=== PATIENT | female | born 1945 | race Caucasian/White ===

== ENCOUNTER 2016-11-26 16:18 | Inpatient (IN) | payer MEDICARE, OTHER ==
[2016-11-26] VITALS (10 sets, daily range): BP systolic 106–131; BP diastolic 52–63; PULSE 63–146; RESP 12–22; TEMP 86.9–95.5; O2SAT 95–100
[~2016-11-26] VITALS: Ht 154.9 cm; Wt 64.7 kg
[~2016-11-26 16:18] MED LIST: ASPI81TA21 PO; CALC600T34 PO; CENTTAB9 PO; LEVO100T4 PO; LIPI80TA16 PO; PRAMIPREXOLE PO; PRIM250 PO
[2016-11-26] MEDS ORDERED: SODIUM CHLOR 0.9% 1000 ML INJ 1,000 ML IV ONE ×4 (16:45→18:45)
--- NOTE | 2016-11-26 16:52 | PD ---
HPI Chief Complaint: Altered Mental Status Time Seen by Provider: 16:25 Travel History International Travel<30 days: No Contact w/Intl Traveler<30days: No Traveled to known affect area: No History of Present Illness HPI The patient was seen and examined in the presence of the nurse. It's not clear what happened to this patient. Neighbor hadn't seen her for a while and became concerned. Paramedics found her lying on the ground. It's unknown how long she 's been down. She cannot provide any history or review of systems. She arrives critically ill [facility] Past Medical History Arthritis: Yes Blood Disorders: No Heart Rhythm Problems: Yes (POSS A FIB) Cancer: Yes (BREAST 2010) High Cholesterol: Yes Chest Pain: No Congestive Heart Failure: No Diminished Hearing: No GERD: No Glaucoma: No Headaches: Yes Hepatitis: No Hiatal Hernia: No Hypertension: No Myocardial Infarction: No Seizures: Yes Thyroid Disease: Yes Ulcer: No Menopausal: Yes Past Surgical History Abdominal Surgery: Yes (GALLBLADDER AND TRIPLE BYPASS) Ear Surgery: No Oral Surgery: No Other Surgery: Yes Social History Alcohol Use: No Tobacco Use: No Substance Use: No Allergies-Medications (Allergen,Severity, Reaction): Coded Allergies: Codeine (Verified Allergy, Severe, 09/04/16) Demerol (Verified Allergy, Severe, 09/04/16) Iodine (Verified Allergy, Severe, hives, 09/04/16) Vitamin C (Verified Allergy, Severe, Rash, 09/04/16) RASH RASH Reported Meds & Prescriptions Reported Meds & Active Scripts Active Reported Centrum (Multivitamins) Tab 1 Tab PO DAILY [Pramiprexole] 1.5 Mg PO HS Aspir-Low (Aspirin) 81 Mg Tab 81 Mg PO DAILY Lipitor (Atorvastatin Calcium) 80 Mg Tab 80 Mg PO DAILY Calcium 600 Mg Tab 600 Mg PO DAILY Mysoline (Primidone) 250 Mg Tab 375 Mg PO BID Levothyroxine 100 mcg (Levothyroxine Sodium) 100 Mcg Tab 100 Mcg PO DAILY Review of Systems ROS Limitations: Clinical Condition, Altered Mental Status, Poor Historian Physical Exam Narrative GENERAL: Thin elderly appearing patient with hypothermia and altered mental status SKIN: Cool and dry. Apparent stage II decubital sacral region HEAD: Has an oval-shaped stage II decubital on the left posterior scalp. Normocephalic. EYES: Pupils are unequal and round . No scleral icterus. No injection or drainage. ENT: No nasal bleeding or discharge. Mucous membranes pink but dry. Normal gag reflex. Appears to be controlling her airway. NECK: Trachea midline. No JVD. CARDIOVASCULAR: Regular rate and rhythm. No murmur appreciated. RESPIRATORY: No accessory muscle use. Clear to auscultation. Breath sounds equal bilaterally. GASTROINTESTINAL: Abdomen soft, non-tender, nondistended. Hepatic and splenic margins not palpable. MUSCULOSKELETAL: No obvious deformities. No clubbing. No cyanosis. No edema. NEUROLOGICAL: Awake and does follow commands. Has equal network manager strengths. Wiggles toes on both feet. Will open her eyes to voice. Has generalized weakness. Nonverbal. PSYCHIATRIC: Impossible to accurately test mood and affect; insight and judgment poor. Data Data Last Documented VS Vital Signs Date Time Temp Pulse Resp B/P Pulse Ox O2 Delivery O2 Flow Rate FiO2 11/26/16 18:09 87.4 121 12 122/60 98 Nasal Cannula 2.0 Orders Iv Access Insert/Monitor (11/26/16 16:35) Iv Access Insert/Monitor (11/26/16 16:35) Sodium Chlor 0.9% 1000 Ml Inj (Ns 1000 M (11/26/16 16:45) Sodium Chlor 0.9% 1000 Ml Inj (Ns 1000 M (11/26/16 16:45) Ct Brain W/O Iv Contrast(Rout) (11/26/16 ) Ct Cerv Spine W/O Contrast (11/26/16 ) Chest, Single Ap (11/26/16 ) Pelvis, Ap Only (Routine) (11/26/16 ) Urinalysis - C+S If Indicated (11/26/16 16:35) Urinary Catheter Insert/Apply (11/26/16 16:35) Complete Blood Count With Diff (11/26/16 16:35) Comprehensive Metabolic Panel (11/26/16 16:35) Ckmb (Isoenzyme) Profile (11/26/16 16:35) Electrocardiogram (11/26/16 ) ^ Director Of Admissions / Telemetry (11/26/16 16:35) Warming [place] / Warming Syst PRN (11/26/16 16:39) Lactic Acid (11/26/16 16:52) Arterial Blood Gas (Abg) (11/26/16 ) Prothrombin Time / Inr (Pt) (11/26/16 16:52) Act Partial Throm Time (Ptt) (11/26/16 16:52) Sodium Bicarbonate 8.4% Inj (Sodium Bica (11/26/16 17:30) CKMB (11/26/16 16:45) CKMB% (11/26/16 16:45) Urine Culture (11/26/16 17:50) Admit Order (Ed Use Only) (11/26/16 18:22) Labs Laboratory Tests Test 11/26/16 11/26/16 11/26/16 16:45 17:03 17:50 White Blood Count 11.2 TH/MM3 Red Blood Count 4.97 MIL/MM3 Hemoglobin 13.9 GM/DL Hematocrit 43.8 % Mean Corpuscular Volume 88.2 FL Mean Corpuscular Hemoglobin 28.0 PG Mean Corpuscular Hemoglobin 31.7 % Concent Red Cell Distribution Width 19.8 % Platelet Count 235 TH/MM3 Mean Platelet Volume 10.2 FL Neutrophils (%) (Auto) 92.3 % Lymphocytes (%) (Auto) 1.7 % Monocytes (%) (Auto) 5.8 % Eosinophils (%) (Auto) 0.0 % Basophils (%) (Auto) 0.2 % Neutrophils # (Auto) 10.4 TH/MM3 Lymphocytes # (Auto) 0.2 TH/MM3 Monocytes # (Auto) 0.6 TH/MM3 Eosinophils # (Auto) 0.0 TH/MM3 Basophils # (Auto) 0.0 TH/MM3 CBC Comment DIFF FINAL Differential Comment Prothrombin Time 11.0 SEC Prothromb Time International 1.0 RATIO Ratio Activated Partial 33.6 SEC Thromboplast Time Sodium Level 142 MEQ/L Potassium Level 4.9 MEQ/L Chloride Level 107 MEQ/L Carbon Dioxide Level 8.3 MEQ/L Anion Gap 27 MEQ/L Blood Urea Nitrogen 157 MG/DL Creatinine 8.80 MG/DL Estimat Glomerular Filtration 4 ML/MIN Rate Random Glucose 149 MG/DL Lactic Acid Level 0.9 mmol/L Calcium Level 7.5 MG/DL Total Bilirubin 0.2 MG/DL Aspartate Amino Transf 158 U/L (AST/SGOT) Alanine Aminotransferase 63 U/L (ALT/SGPT) Alkaline Phosphatase 129 U/L Total Creatine Kinase 4490 U/L Creatine Kinase MB 139.8 NG/ML Creatine Kinase MB % 3.1 % Total Protein 7.5 GM/DL Albumin 3.0 GM/DL Blood Gas Puncture Site RT RADIAL Blood Gas Patient Temperature 98.6 Blood Gas HCO3 6 mmol/L Blood Gas Base Excess -23.6 mmol/L Blood Gas Oxygen Saturation 94 % Arterial Blood pH 6.99 Arterial Blood Partial 24 mmHg Pressure CO2 Arterial Blood Partial 140 mmHG Pressure O2 Arterial Blood Oxygen Content 19.0 Vol % Arterial Blood 1.5 % Carboxyhemoglobin Arterial Blood Methemoglobin 2.4 % Blood Gas Hemoglobin 14.1 G/DL Oxygen Delivery Device RA Blood Gas Inspired Oxygen 21 % Urine Color YELLOW Urine Turbidity CLOUDY Urine pH 5.0 Urine Specific [place] 1.017 Urine Protein 30 mg/dL Urine Glucose (UA) NEG mg/dL Urine Ketones NEG mg/dL Urine Occult Blood TRACE Urine Nitrite NEG Urine Bilirubin NEG Urine Urobilinogen LESS THAN 2.0 MG/DL Urine Leukocyte Esterase NEG Urine Amorphous Sediment MANY Urine Bacteria FEW /hpf Urine Yeast (Budding) Microscopic Urinalysis Comment CATH-CULTURE IND MDM Medical Decision Making Medical Screen Exam Complete: Yes Emergency Medical Condition: Yes Medical Record Reviewed: Yes Differential Diagnosis Hypothermia, rhabdomyolysis, dehydration, intracranial hemorrhage Narrative Course I have reviewed the patient's electronic medical record. 2 IVs placed Patient is critically ill We've done rewarming with 2 L of warmed saline IV blankets applied and bear Good Dealer warming system I reviewed her chest x-ray is negative for trauma I reviewed her pelvic x-ray is negative Brain CT is negative Cervical spine CT shows arthritic change without fracture CBC is normal Metabolic profile shows new-onset renal failure with creatinine of 8.8. BUN is very high. Sodium and potassium are both normal. Bicarbonate is low at 8.3 LFTs I reviewed ABG shows pH of 6.99, metabolic acidosis Lactate is normal I reviewed the case in detail with aerophysics engineer radiation protection technician Dr. Kirby. He is not recommending emergent dialysis. He wants aggressive hydration and supportive intensive care measures and he will reassess and determine dialysis need Temperature starting to come up Temperature-sensing Barrios has been placed I'm giving 2 more liters of warmed normal saline IV which will be a total of 4 L Blood pressure is remaining 122 systolic Patient sometimes is in a sinus rhythm in the 70s and at other times in A. fib with a max rate of 120s I reviewed with the drier belt conveyor Critical Care Narrative Aggregate critical care time was 82 minutes. Time to perform other separately billable procedures was not included in the critical care time. My time did not include minutes spent treating any other patients simultaneously or on activities that did not directly contribute to the patient's treatment. The services I provided to this patient were to treat and/or prevent clinically significant deterioration that could result in: Cardiac arrhythmia, cardiopulmonary arrest I provided critical care services requiring my management, as noted below: Chart data review, documentation time, medication orders and management, vital sign assessments/reviewing monitor data, ordering and reviewing lab tests, ordering and interpreting/reviewing x-rays and diagnostic studies, care of the patient and discussion of the patient with the admitting physicians. Diagnosis Primary Impression: Renal failure Additional Impressions: Hypothermia Qualified Code: T68.XXXA - Hypothermia, initial encounter Dehydration, severe Rhabdomyolysis Qualified Code: T79.6XXA - Traumatic rhabdomyolysis, initial encounter Uremic encephalopathy Admitting Information Admitting Physician Requests: Admit Arsenio Smith MD Nov 26, 2016 16:52
[2016-11-26 17:13] LABS: BLOOD GAS BASE EXCESS -23.6 mmol/L (-2-2); BLOOD GAS CARBOXYHEMOGLOBIN 1.5 % (0-4); BLOOD GAS HCO3 6 mmol/L (22-26); BLOOD GAS METHEMOGLOBIN 2.4 % (0-2); BLOOD GAS O2 HGB SATURATION 94 % (90-100); BLOOD GAS PCO2 24 mmHg (38-42); BLOOD GAS PO2 140 mmHG (61-120); BLOOD GAS TOTAL HGB 14.1 G/DL (12.0-16.0); CRITICAL VALUE YES; TEMP CORR TO 98.6
[2016-11-26 17:14] LABS: DRAW SITE RT RADIAL; FIO2 21 %; NUMBER OF ARTERIAL PUNCTURES 1; OXYGEN DEVICE RA; STAT YES; ULNAR PULSE PRESENT
[2016-11-26 17:25] LABS: AUTOMATED NEUTROPHIL # 10.4 TH/MM3 (1.8-7.7); BASOPHIL % 0.2 % (0.0-2.0); HEMATOCRIT 43.8 % (35.0-46.0); HEMO FLAGS DIFF FINAL; LYMPH % 1.7 % (9.0-44.0); LYMPHOCYTE # 0.2 TH/MM3 (1.0-4.8); MEAN CELL VOLUME 88.2 FL (80.0-100.0); MEAN CORPUSCULAR HGB CONC 31.7 % (32.0-36.0); MONO % 5.8 % (0.0-8.0); NEUT % 92.3 % (16.0-70.0); PLATELET COUNT 235 TH/MM3 (150-450); RED BLOOD COUNT 4.97 MIL/MM3 (4.00-5.30); RED CELL DISTRIBUTION WIDTH 19.8 % (11.6-17.2); WHITE BLOOD COUNT 11.2 TH/MM3 (4.0-11.0)
[2016-11-26 17:30] LABS: APTT (PATIENT) 33.6 SEC (24.3-30.1)
[2016-11-26] MEDS ORDERED: SODIUM BICARBONATE 8.4% INJ 50 MEQ/50 ML SYR IV PUSH ONE ×2 (17:30→22:00)
--- NOTE | 2016-11-26 17:32 | RADRPT ---
EXAM DATE/TIME: 11/26/2016 17:19 [facility] COMPARISON: No previous studies available for comparison. INDICATIONS : Trauma to chest post fall MEDICAL HISTORY : Unobtainable SURGICAL HISTORY : Unobtainable ENCOUNTER: Initial ACUITY: 1 day PAIN SCORE: Non-responsive. LOCATION: Bilateral chest FINDINGS: Lungs are symmetrically aerated and grossly clear. There is no definite evidence of hemothorax or pne umothorax. Cardiomediastinal contours are satisfactory for technique and projection. Sternotomy wires are present. There are healed right-sided rib fractures. Severe degenerative changes are present in the shoulder with calcific or ossific loose body in the axillary recess on the right. Surgical clips are seen in the low right axillary region. CONCLUSION: No acute cardiopulmonary disease Lei Dewitt MD on November 26, 2016 at 17:29 Board Certified Radiologist. This report was verified electronically.
--- NOTE | 2016-11-26 17:35 | RADRPT ---
EXAM DATE/TIME: 11/26/2016 17:18 [facility] COMPARISON: No previous studies available for comparison. INDICATIONS : Trauma to pelvis post fall today MEDICAL HISTORY : Unobtainable SURGICAL HISTORY : Unobtainable ENCOUNTER: Initial ACUITY: 1 day PAIN SCORE: Non-responsive. LOCATION: Pelvis FINDINGS: A single frontal view of the pelvis demonstrates no evidence of fracture. The bony pelvic ring is in tact. Bony mineralization is normal. The soft tissues are intact. CONCLUSION: 1. No acute findings. Mild osteoarthritis of the hips. Vascular calcifications in the pelvis. Domenico Mar MD on November 26, 2016 at 17:32 Board Certified Radiologist. This report was verified electronically.
--- NOTE | 2016-11-26 17:49 | RADRPT ---
EXAM DATE/TIME: 11/26/2016 17:22 [facility] COMPARISON: No previous studies available for comparison. INDICATIONS : AMS and possible head trauma. RADIATION DOSE: 56.35 CTDIvol (mGy) MEDICAL HISTORY : Seizures. Cardiovascular disease Carcinoma, breast. SURGICAL HISTORY : None. ENCOUNTER: Initial ACUITY: 1 day PAIN SCALE: Non-responsive LOCATION: cranial TECHNIQUE: Multiple contiguous axial images were obtained of the head. Using automated exposure control and adj ustment of the mA and/or kV according to patient size, radiation dose was kept as low as reasonably a chievable to obtain optimal diagnostic quality images. FINDINGS: CEREBRUM: The ventricles are normal for age. No evidence of midline shift, mass lesion, hemorrhage or acute in farction. No extra-axial fluid collections are seen. POSTERIOR FOSSA: The cerebellum and brainstem are intact. The 4th ventricle is midline. The cerebellopontine angle i s unremarkable. EXTRACRANIAL: The visualized portion of the orbits is intact. SKULL: The calvaria is intact. No evidence of skull fracture. CONCLUSION: No acute intracranial findings. Lei Dewitt MD on November 26, 2016 at 17:46 Board Certified Radiologist. This report was verified electronically.
[2016-11-26 17:58] LABS: ANION GAP 27 MEQ/L (5-15)
--- NOTE | 2016-11-26 18:07 | RADRPT ---
EXAM DATE/TIME: 11/26/2016 17:25 [facility] COMPARISON: No previous studies available for comparison. INDICATIONS : Altered mental status; found unresponsive. RADIATION DOSE: 32.15 CTDIvol (mGy) MEDICAL HISTORY : Seizures. Cardiovascular disease Carcinoma, breast. SURGICAL HISTORY : None. ENCOUNTER: Initial ACUITY: 1 day PAIN SCALE: Non-responsive LOCATION: neck TECHNIQUE: Volumetric scanning of the cervical spine was performed. Multiplanar reconstructions in the sagittal, coronal and oblique axial planes were performed. Using automated exposure control and adjustment o f the mA and/or kV according to patient size, radiation dose was kept as low as reasonably achievable to obtain optimal diagnostic quality images. FINDINGS: There is mild to moderate degenerative disc disease in the cervical spine. Benign-appearing sclerotic lesion present at C7. No acute fracture or spondylolisthesis. No prevertebral soft tissue swelling i s present. CONCLUSION: 1. Moderate degenerative disc disease. No acute findings. Domenico Mar MD on November 26, 2016 at 18:01 Board Certified Radiologist. This report was verified electronically.
[2016-11-26 18:10] LABS: ALT (GPT) 63 U/L (10-53); AST (GOT) 158 U/L (15-37); BICARBONATE 8.3 MEQ/L (21.0-32.0); CHLORIDE 107 MEQ/L (98-107); GLOMERULAR FILTRATION RATE 4 ML/MIN (>89); POTASSIUM 4.9 MEQ/L (3.5-5.1); SODIUM (NA) 142 MEQ/L (136-145)
[2016-11-26 18:11] LABS: ALKALINE PHOSPHATASE 129 U/L (45-117); CREATINE KINASE 4490 U/L (26-192); TOTAL BILIRUBIN ADULT 0.2 MG/DL (0.2-1.0)
[2016-11-26 18:19] LABS: BACTERIA, URINE FEW /hpf; BLOOD, URINE TRACE (NEG); GLUCOSE,URINE NEG (NEG); KETONE, URINE NEG (NEG); NITRITE,URINE NEG (NEG); URINE COLOR YELLOW (YELLW/STRAW)
[2016-11-26 18:20] LABS: COMMENT (UR) CATH-CULTURE IND; CULTURE IF INDICATED CATH CULTURE IND
[2016-11-26 18:34] LABS: BLOOD UREA NITROGEN 157 MG/DL (7-18)
[2016-11-26 18:36] LABS: CKMB 139.8 NG/ML (0.5-3.6)
[2016-11-26] MEDS ORDERED: SODIUM CHLORIDE 0.9% FLUSH 5 ML FLUSH IV FLUSH PRN (19:15)
[2016-11-26] MEDS ORDERED: CHLORHEXIDINE GLUCONATE 2 % 1 PACK (2 CLOTHS) TOP PRN (19:15)
[2016-11-26] MEDS ORDERED: POTASSIUM PHOSPHATE MONOBASIC 500 MG TAB PO PRN (19:15)
[2016-11-26] MEDS ORDERED: SODIUM PHOSPHATE INJ 30 MMOL in SODIUM CHLOR 0.9% 250 ML INJ 240 ML IV PRN (19:15)
[2016-11-26] MEDS ORDERED: MISCELLANEOUS NURSING INFORMATION XX SCH (19:15)
[2016-11-26] MEDS ORDERED: POTASSIUM CL 40 MEQ/30 ML LIQ UDC PO/TUBE PRN ×2 (19:15)
[2016-11-26] MEDS ORDERED: ONDANSETRON HCL 4 MG/2 ML VIAL IV PRN (19:15)
[2016-11-26] MEDS ORDERED: POTASSIUM CHLOR 40 MEQ PREMIX 100 ML IV PRN ×2 (19:15)
[2016-11-26] MEDS ORDERED: BISACODYL 10 MG SUPP RECTAL PRN (19:15)
[2016-11-26] MEDS ORDERED: MAGNESIUM SULFATE INJ 4 GM in SODIUM CHLORIDE 0.9% INJ 92 ML IV PRN (19:15)
[2016-11-26] MEDS ORDERED: MAGNESIUM SULFATE INJ 2 GM in SODIUM CHLORIDE 0.9% INJ 96 ML IV PRN (19:15)
[2016-11-26] MEDS ORDERED: MAGNESIUM OXIDE 400 MG TAB PO PRN (19:15)
[2016-11-26] MEDS ORDERED: POTASSIUM PHOSPHATE MONOBASIC 500 MG TAB PO/TUBE PRN (19:15)
[2016-11-26] MEDS ORDERED: POTASSIUM CHLOR 20 MEQ PREMIX 100 ML IV PRN ×2 (19:15)
[2016-11-26] MEDS ORDERED: POTASSIUM PHOSPHATE INJ 30 MMOL in SODIUM CHLOR 0.9% 250 ML INJ 250 ML IV PRN (19:15)
[2016-11-26] MEDS ORDERED: LACTATED RINGER'S 1000 ML INJ 1,000 ML IV SCH (19:45)
--- NOTE | 2016-11-26 19:59 | HHI.HP ---
HPI Service Critical Care Medicine Primary Care Physician Unknown Admission Diagnosis new onset renal failure,uremic encephalopathy,hypothermia Diagnosis: Travel History International Travel<30 Days: No Contact w/Intl Traveler <30 Da: No Traveled to Known Affected Are: No History of Present Illness Is elderly female found down in her backyard her next door neighbor. It is unknown the amount of time the patient had been lying on the ground. Patient was noted to have an ulcer in the occipital region and the sacral region. The patient was noted to be hypothermic 86.0, with altered mental status. The patient was transferred to [facility] ED at which time imaging studies and laboratory studies were performed. The patient was noted to have a pH of 6.99, with a bicarbonate level of 6, and rhabdomyolysis with a CK level will 4490. Patient received approximately 4 L of IV fluids, 2 A of sodium bicarbonate, nephrology was consulted, and rewarming was instituted. Critical care medicine was consulted for management and treatment. Upon my arrival to the ED, the patient was alert to name, and stated her name, slightly dysarthric, normotensive, and following motor commands. History PFSH Past Medical History Arthritis: Yes Blood Disorders: No Heart Rhythm Problems: Yes (POSS A FIB) Cancer: Yes (BREAST 2009) High Cholesterol: Yes Chest Pain: No Congestive Heart Failure: No Diminished Hearing: No GERD: No Glaucoma: No Headaches: Yes Hepatitis: No Hiatal Hernia: No Hypertension: No Myocardial Infarction: No Seizures: Yes Thyroid Disease: Yes Ulcer: No Menopausal: Yes Past Surgical History Abdominal Surgery: Yes (GALLBLADDER AND TRIPLE BYPASS) Ear Surgery: No Oral Surgery: No Other Surgery: Yes Social History Alcohol Use: No Tobacco Use: No Substance Use: No Allergies-Medications Allergies-Medications (Allergen,Severity, Reaction): Coded Allergies: Codeine (Verified Allergy, Severe, 09/04/16) Demerol (Verified Allergy, Severe, 09/04/16) Iodine (Verified Allergy, Severe, hives, 09/04/16) Vitamin C (Verified Allergy, Severe, Rash, 09/04/16) RASH RASH Reported Meds & Prescriptions Reported Meds & Active Scripts Active Reported Centrum (Multivitamins) Tab 1 Tab PO DAILY [Pramiprexole] 1.5 Mg PO HS Aspir-Low (Aspirin) 81 Mg Tab 81 Mg PO DAILY Lipitor (Atorvastatin Calcium) 80 Mg Tab 80 Mg PO DAILY Calcium 600 Mg Tab 600 Mg PO DAILY Mysoline (Primidone) 250 Mg Tab 375 Mg PO BID Levothyroxine 100 mcg (Levothyroxine Sodium) 100 Mcg Tab 100 Mcg PO DAILY ROS Review of Systems ROS Limitations: Clinical Condition, Altered Mental Status, Poor Historian Past Family Social History Allergies: Coded Allergies: Codeine (Verified Allergy, Severe, 09/04/16) Demerol (Verified Allergy, Severe, 09/04/16) Iodine (Verified Allergy, Severe, hives, 09/04/16) Vitamin C (Verified Allergy, Severe, Rash, 09/04/16) RASH RASH Physical Exam Vital Signs Vital Signs Date Time Temp Pulse Resp B/P Pulse Ox O2 Delivery O2 Flow Rate FiO2 11/26/16 19:22 100 Nasal Cannula 2 11/26/16 19:21 89.4 132 18 106/58 100 Nasal Cannula 2 11/26/16 19:05 88.9 134 12 106/58 100 Nasal Cannula 2.0 11/26/16 18:09 87.4 121 12 122/60 98 Nasal Cannula 2.0 11/26/16 18:04 87.4 11/26/16 16:41 12 Room Air 11/26/16 16:41 63 12 131/58 95 Nasal Cannula 2.0 11/26/16 16:25 86.9 65 12 129/63 Physical Exam GENERAL: Critically ill-appearing female appearing older than stated age. SKIN: Cool and dry. Noted ulcer occipital and sacral area HEAD: Normocephalic. EYES: PERRLA, 3mm beisk. No scleral icterus. No injection or drainage. ENT: No nasal bleeding or discharge. Mucous membranes dry. Nasal cannula at 2 L /m NECK: Trachea midline. No JVD. CARDIOVASCULAR: Tachycardic, regular rhythm. RESPIRATORY: No accessory muscle use. Clear to auscultation. Breath sounds equal bilaterally. GASTROINTESTINAL: Abdomen soft, non-tender, nondistended. No guarding. MUSCULOSKELETAL: Extremities without clubbing, cyanosis, or edema. No obvious deformities. Pain with extension left lower extremity NEUROLOGICAL: Awake and alert. RASS 0. No gross focal/sensory deficits.Dysarthia noted. Follows commands in all 4 extremities. Laboratory Laboratory Tests Test 11/26/16 11/26/16 11/26/16 16:45 17:03 17:50 White Blood Count 11.2 Red Blood Count 4.97 Hemoglobin 13.9 Hematocrit 43.8 Mean Corpuscular Volume 88.2 Mean Corpuscular Hemoglobin 28.0 Mean Corpuscular Hemoglobin 31.7 Concent Red Cell Distribution Width 19.8 Platelet Count 235 Mean Platelet Volume 10.2 Neutrophils (%) (Auto) 92.3 Lymphocytes (%) (Auto) 1.7 Monocytes (%) (Auto) 5.8 Eosinophils (%) (Auto) 0.0 Basophils (%) (Auto) 0.2 Neutrophils # (Auto) 10.4 Lymphocytes # (Auto) 0.2 Monocytes # (Auto) 0.6 Eosinophils # (Auto) 0.0 Basophils # (Auto) 0.0 CBC Comment DIFF FINAL Differential Comment Prothrombin Time 11.0 Prothromb Time International 1.0 Ratio Activated Partial 33.6 Thromboplast Time Sodium Level 142 Potassium Level 4.9 Chloride Level 107 Carbon Dioxide Level 8.3 Anion Gap 27 Blood Urea Nitrogen 157 Creatinine 8.80 Estimat Glomerular Filtration 4 Rate Random Glucose 149 Lactic Acid Level 0.9 Calcium Level 7.5 Total Bilirubin 0.2 Aspartate Amino Transf 158 (AST/SGOT) Alanine Aminotransferase 63 (ALT/SGPT) Alkaline Phosphatase 129 Total Creatine Kinase 4490 Creatine Kinase MB 139.8 Creatine Kinase MB % 3.1 Total Protein 7.5 Albumin 3.0 Blood Gas Puncture Site RT RADIAL Blood Gas Patient Temperature 98.6 Blood Gas HCO3 6 Blood Gas Base Excess -23.6 Blood Gas Oxygen Saturation 94 Arterial Blood pH 6.99 Arterial Blood Partial 24 Pressure CO2 Arterial Blood Partial 140 Pressure O2 Arterial Blood Oxygen Content 19.0 Arterial Blood 1.5 Carboxyhemoglobin Arterial Blood Methemoglobin 2.4 Blood Gas Hemoglobin 14.1 Oxygen Delivery Device RA Blood Gas Inspired Oxygen 21 Urine Color YELLOW Urine Turbidity CLOUDY Urine pH 5.0 Urine Specific [place] 1.017 Urine Protein 30 Urine Glucose (UA) NEG Urine Ketones NEG Urine Occult Blood TRACE Urine Nitrite NEG Urine Bilirubin NEG Urine Urobilinogen LESS THAN 2.0 Urine Leukocyte Esterase NEG Urine Amorphous Sediment MANY Urine Bacteria FEW Urine Yeast (Budding) Microscopic Urinalysis Comment CATH-CULTURE IND Date/Time Procedure Status Source Growth 11/26/16 17:50 Urine Culture Received Urine Clean Catch Pending Result Diagram: 11/26/16 1645 11/26/16 1645 Imaging Last 24 hours Impressions Pelvis X-Ray 11/26/16 0000 Signed Impressions: Service Date/Time: Saturday, November 26, 2016 17:18 - CONCLUSION: 1. No acute findings. Mild osteoarthritis of the hips. Vascular calcifications in the pelvis. Domenico Mar MD Head CT 11/26/16 0000 Signed Impressions: Service Date/Time: Saturday, November 26, 2016 17:22 - CONCLUSION: No acute intracranial findings. Lei Dewitt MD Chest X-Ray 11/26/16 0000 Signed Impressions: Service Date/Time: Saturday, November 26, 2016 17:19 - CONCLUSION: No acute cardiopulmonary disease Lei Dewitt MD Cervical Spine CT 11/26/16 0000 Signed Impressions: Service Date/Time: Saturday, November 26, 2016 17:25 - CONCLUSION: 1. Moderate degenerative disc disease. No acute findings. Domenico Mar MD Septic Shock Reassessment Heart: Irregular Lungs: Clear Skin: Cold Peripheral Pulses: Bounding Right Radial Bounding Left Radial Bounding Right Dorsalis Pedis Bounding Left Dorsalis Pedis Capillary Refill: Brisk, <2 seconds Assessment and Plan Assessment and Plan This is a critically ill female, found unconscious from unknown limited of time , presenting with rhabdomyolysis, hypothermia, altered mental status, with a severe metabolic acidosis. The patient's medical records revealed the patient has a history of seizures, and cardiovascular disease. This is included in the differential, and the patient remains critically ill, and prognosis is guarded. Plan by systems: Neurologic: Seizure disorder Altered mental status-secondary to hypothermia, toxic encephalopathy -GCS 14, patient is alert to name, dysarthria -Obtain EEG -Follow up ammonia level -Neurology consult appreciate recommendations -CT head 11/26-no intracranial abnormality -CT cervical 11/26 moderate degenerative disc disease -Maintain c-collar, place Lime J until clinical assessment -Normal swallow evaluation by speech therapy in a.m. Respiratory: -No acute issues respiratory issues -Maintain O2 sat greater than 92%. O2 at 2 L nasal cannula O2 saturation 99% -Bronchodilators every 4 hours when necessary for wheezing -Maintain head of bed elevation 30 patient is an aspiration risk -CXR1/6- no abnormalities -Follow-up repeat ABG Cardiovascular: Cardiovascular disease History of CABG x 3 vessels Hyperlipidemia H/O A. fib (per old records) Sinus tachycardia -HR 120's-continue to volume resuscitate -Obtain EKG -Obtain serial troponin -Obtain BNP -Obtain ECHO -Past medical records revealed patients on ASA 81 mg daily, will resume when clinically indicated Renal: ALEXEY Dehydration -Initial creatinine 8.8-volume resuscitation, 4 L of crystalloid NS, 1L LR, sodium bicarbonate infusion 100 cc/hr, LR 100cc/hr maintenance -Insert Barrios -- Strict I/Os FEN/GI: Metabolic acidosis Elevated transaminases -Initial ABG 6.99/24/140/6/-23.6, received 2 amps of sodium bicarbonate and the ED -Repeat ABG 7.111/20.8/127/6.5/-21, 2 amps of sodium bicarbonate given, sodium bicarbonate infusion initiated -Maintain NPO status -Insert NG tube -Sodium bicarbonate infusion 100 cc/hour, LR 100 cc/hour Heme/ID: -Obtain blood and urine cultures -Lactate 0.2 Endocrine: Hypothyroidism -Obtain thyroid panel -Patient home med includes Synthroid 100 mcgs/day SKIN/MUSUCULOSKELETAL: Hypothermia Rhabdomyolysis -Apply Jennifer hugger -Warm IV fluids -Monitor core temp via Barrios -Glucose monitoring per ICU protocol -- SSI Prophylaxis: GI Prophylaxis Protonix DVT Prophylaxis -- SCDs Lines: Peripheral IVs 2. Central line if indicated. Dispo: This patient remains critically ill with one or more organ systems which are or may become a threat to life. I have spent in excess of 60 minutes discontinuously in the care and management of this patient. This time is exclusive of procedures, and includes, but is not limited to, evaluation of the patient, review of the medical record, discussions with family, consultants, nursing staff, or respiratory therapy, and documentation in the medical record. Code Status Full code Discussed Condition With ED RN at bedside Marychuy Payan MD Nov 26, 2016 19:58
[2016-11-26] MEDS ORDERED: LACTATED RINGER'S 1000 ML INJ 1,000 ML IV ONE (20:00)
[2016-11-26] MEDS: DOCUSATE SODIUM 100 MG/10 ML UDC G-TUBE SCH ×2 (20:00→21:06)
[2016-11-26 21:15] LABS: BLOOD GAS BASE EXCESS -21.2 mmol/L (-2-2); BLOOD GAS CARBOXYHEMOGLOBIN 1.6 % (0-4); BLOOD GAS HCO3 7 mmol/L (22-26); BLOOD GAS METHEMOGLOBIN 2.2 % (0-2); BLOOD GAS O2 HGB SATURATION 95 % (90-100); BLOOD GAS PCO2 21 mmHg (38-42); BLOOD GAS PO2 127 mmHG (61-120); BLOOD GAS TOTAL HGB 11.1 G/DL (12.0-16.0); TEMP CORR TO 98.6
[2016-11-26 21:16] LABS: DRAW SITE LT RADIAL; LITER FLOW 2 L/M; NUMBER OF ARTERIAL PUNCTURES 1; OXYGEN DEVICE NASAL CANNULA; STAT YES; ULNAR PULSE PRESENT
--- NOTE | 2016-11-26 21:44 | EKG ---
Date Performed: 11/26/2016 Time Performed: 17:42:28 PTAGE: 71 years EKG: Sinus rhythm Peak T waves PROLONGED QT INTERVAL ABNORMAL ECG PREVIOUS TRACING : 01/16/2010 08.33 QTC Prolonged with peaked T waves DOCTOR: Ghanshyam Zamora Interpretating Date/Time 11/26/2016 21:42:49
[2016-11-26] MEDS: SODIUM BICARBONATE 8.4% INJ 150 MEQ in WATER STERILE FOR INJ 850 ML IV SCH (22:07)
[2016-11-26] MEDS: SODIUM CHLORIDE 0.9% FLUSH 5 ML FLUSH IV FLUSH SCH (22:08)
[2016-11-26 22:23] LABS: THYROXINE (T4) 3.1 MCG/DL (4.8-13.9)
[2016-11-26 22:36] LABS: CKMB 153.9 NG/ML (0.5-3.6)
[2016-11-27] VITALS (22 sets, daily range): BP systolic 100–135; BP diastolic 50–84; PULSE 126–156; RESP 16–28; TEMP 98.1–100.1; O2SAT 90–98
[2016-11-27] MEDS ORDERED: DILTIAZEM HCL 25 MG/5 ML VIAL IV ONE (00:30)
[2016-11-27] MEDS ORDERED: METOPROLOL TARTRATE 5 MG/5 ML VIAL IV PUSH ONE ×2 (02:45→04:15)
[2016-11-27 03:21] LABS: CKMB 154.9 NG/ML (0.5-3.6)
[2016-11-27] MEDS: RESP: ALBUTEROL 2.5 MG/IPRATROPIUM 0.5 MG NEB (PRN) INH (03:34)
[2016-11-27] MEDS: CHLORHEXIDINE GLUCONATE 2 % 1 PACK (2 CLOTHS) TOP SCH (04:00)
[2016-11-27 04:29] LABS: AUTOMATED NEUTROPHIL # 4.9 TH/MM3 (1.8-7.7); BASOPHIL % 0.8 % (0.0-2.0); HEMO FLAGS DIFF FINAL; LYMPH % 1.6 % (9.0-44.0); LYMPHOCYTE # 0.1 TH/MM3 (1.0-4.8); MEAN CELL VOLUME 86.9 FL (80.0-100.0); MEAN CORPUSCULAR HEMOGLOBIN 28.4 PG (27.0-34.0); MEAN CORPUSCULAR HGB CONC 32.7 % (32.0-36.0); MONO % 7.6 % (0.0-8.0); PLATELET COUNT 178 TH/MM3 (150-450); RED BLOOD COUNT 4.02 MIL/MM3 (4.00-5.30); RED CELL DISTRIBUTION WIDTH 20.5 % (11.6-17.2); WHITE BLOOD COUNT 5.5 TH/MM3 (4.0-11.0)
[2016-11-27 04:48] LABS: APTT (PATIENT) 28.5 SEC (24.3-30.1)
[2016-11-27 05:09] LABS: INDIRECT BILIRUBIN 0.2 MG/DL (0.0-0.8); MAGNESIUM 2.2 MG/DL (1.5-2.5); POTASSIUM 3.1 MEQ/L (3.5-5.1); TOTAL BILIRUBIN ADULT 0.3 MG/DL (0.2-1.0)
[2016-11-27 05:14] LABS: CALCIUM-PROTEIN CORRECTED 6.9 MG/DL (8.5-10.1)
[2016-11-27 05:46] LABS: BLOOD GAS BASE EXCESS -14.5 mmol/L (-2-2); BLOOD GAS HCO3 11 mmol/L (22-26); BLOOD GAS METHEMOGLOBIN 2.2 % (0-2); BLOOD GAS O2 HGB SATURATION 92 % (90-100); BLOOD GAS OXYGEN CONTENT 14.8 Vol % (12.0-20.0); BLOOD GAS PCO2 24 mmHg (38-42); BLOOD GAS PO2 92 mmHG (61-120); BLOOD GAS TOTAL HGB 11.3 G/DL (12.0-16.0); TEMP CORR TO 98.6
[2016-11-27 05:47] LABS: DRAW SITE RT RADIAL; FIO2 50 %; LITER FLOW 6 L/M; NUMBER OF ARTERIAL PUNCTURES 1; OXYGEN DEVICE Venti Mask; STAT YES; ULNAR PULSE PRESENT
--- NOTE | 2016-11-27 07:09 | RADRPT ---
EXAM DATE/TIME: 11/27/2016 06:59 [facility] COMPARISON: CHEST SINGLE AP, November 26, 2016, 17:19. INDICATIONS : Shortness of breath. MEDICAL HISTORY : Unobtainable. SURGICAL HISTORY : CABG. ENCOUNTER: Subsequent ACUITY: 2 days PAIN SCORE: Non-responsive. LOCATION: Bilateral chest FINDINGS: Interval development of consolidation in the left lower lung with multiple air bronchograms. The lef t hemidiaphragm remains fairly well delineated. The right lung is clear. The heart is normal size. Evidence of prior median sternotomy and CABG. Stable oval ossification in the inferior right should er. CONCLUSION: Interval development of left lower lobe consolidation. Josesito Kumar MD on November 27, 2016 at 7:07 Board Certified Radiologist. This report was verified electronically.
[2016-11-27] MEDS: SODIUM BICARBONATE 8.4% INJ 150 MEQ in WATER STERILE FOR INJ 850 ML IV SCH ×3 (08:11→20:09)
[2016-11-27] MEDS ORDERED: PANTOPRAZOLE SODIUM 40 MG VIAL IV SCH (09:00)
--- NOTE | 2016-11-27 09:50 | RADRPT ---
EXAM DATE/TIME: 11/27/2016 07:54 [facility] COMPARISON: No previous studies available for comparison. EXTERNAL COMPARISON : [facility], CT ABDOMEN & PELVIS W/O CONTRAST, June 21, 2012 INDICATIONS : Increased BUN and creatinine. MEDICAL HISTORY : Hypercholesterolemia. Arthritis. Carcinoma, breast. Thyroid disease. Seizures. A-Fib. SURGICAL HISTORY : Cholecystectomy. CABG. ENCOUNTER: Initial ACUITY: 1 day PAIN SCORE: Nonresponsive. LOCATION: Bilateral flank MEASUREMENTS: RIGHT KIDNEY: 9.9 x 4.3 x 4.9 cm LEFT KIDNEY: 9.6 x 4.3 x 4.4 cm FINDINGS: RIGHT KIDNEY: Kidney is small and echogenic without hydronephrosis or stone. LEFT KIDNEY: There is no hydronephrosis. Kidney is small and echogenic. BLADDER: Bladder is distended in spite of Barrios. Trace ascites is noted. Small bilateral pleural effusions are evident. CONCLUSION: Small echogenic kidneys without hydronephrosis. Trace pleural effusions. Trace ascites. Richard Bernal MD FACR on November 27, 2016 at 9:48 Board Certified Radiologist. This report was verified electronically.
[2016-11-27] MEDS: DOCUSATE SODIUM 100 MG/10 ML UDC G-TUBE SCH ×2 (10:34→20:00)
[2016-11-27] MEDS: SODIUM CHLORIDE 0.9% FLUSH 5 ML FLUSH IV FLUSH SCH ×2 (10:34→20:42)
--- NOTE | 2016-11-27 11:42 | PD.CONS ---
HPI Service Nephrology Consult Requested By Dr. Payan Reason for Consult [facility] Primary Care Physician Unknown History of Present Illness The patient is a 71 yo [place] female who was brought in yesterday evening after being found down at her home for an unknown amount of time. As per records as the patient is very lethargic and not able to provide any information, her neighbor became concerned when they hadn't seen her for some time and called for a welfare check. EMS found her down with AMS and hypothermic. On arrival, her was found to be in renal failure and profoundly acidotic. She was given 4L of NS bolus as well as 2 amps of bicarb. She has been transferred to the ICU for closer monitoring. We were consulted for evaluation of potential need for dialysis. SCr on arrival 8.80 that has improved to 6.54 after IV fluids Na was 142 and is now 153 K+ was 4.9 now 3.1 CO2 was 8.3 now 12 (HCO3 per ABG 6 on admission and improved to 11 at consult) We have only 2 other SCr levels for review from previous admissions: 1.30 in 2009 and 0.73 in 2006 (Agatha Cavazos) Review of Systems ROS Limitations: Clinical Condition, Altered Mental Status (Agatha Cavazos) Past Family Social History Allergies: Coded Allergies: Codeine (Verified Allergy, Severe, 09/04/16) Demerol (Verified Allergy, Severe, 09/04/16) Iodine (Verified Allergy, Severe, hives, 09/04/16) Vitamin C (Verified Allergy, Severe, Rash, 09/04/16) RASH RASH Past Medical History As per chart records: A. fib Seizure disorder CAD Past Surgical History Cholecystectomy 3 vessel CABG Reported Medications Reported Meds & Active Scripts Active Reported Centrum (Multivitamins) Tab 1 Tab PO DAILY [Pramiprexole] 1.5 Mg PO HS Aspir-Low (Aspirin) 81 Mg Tab 81 Mg PO DAILY Lipitor (Atorvastatin Calcium) 80 Mg Tab 80 Mg PO DAILY Calcium 600 Mg Tab 600 Mg PO DAILY Mysoline (Primidone) 250 Mg Tab 375 Mg PO BID Levothyroxine 100 mcg (Levothyroxine Sodium) 100 Mcg Tab 100 Mcg PO DAILY Active Ordered Medications Current Medications Medications (Trade) Dose Ordered Sig/Renea Route Start Time Stop Time Status Last Admin (NS Flush) 2 ml UNSCH PRN IV FLUSH 11/26/16 19:15 (NS Flush) 2 ml BID IV FLUSH 11/26/16 21:00 11/27/16 10:34 (Protonix Inj) 40 mg DAILY IV 11/27/16 09:00 11/27/16 10:34 (Zofran Inj) 4 mg Q6H PRN IV 11/26/16 19:15 (Colace Liq) 100 mg Q12H G-TUBE 11/26/16 20:00 11/27/16 10:34 (Dulcolax Supp) 10 mg DAILY PRN RECTAL 11/26/16 19:15 Miscellaneous Information 1 Q361D XX 11/26/16 19:15 (Chlorhexidine 2% Cloth) 3 pack Taper DAILY@04 TOP 11/27/16 04:00 11/23/17 03:59 Chlorhexidine Gluconate 3 pack 3 pack UNSCH PRN TOP 11/26/16 19:15 (Sodium Bicarbonate 8.4% Inj/Sterile Water For Inj) 1,000 ml @ 150 mls/hr Q6H40M IV 11/26/16 22:00 11/27/16 10:32 Family History Not obtainable Social History Not obtainable (Agatha Cavazos) Physical Exam Vital Signs Vital Signs Date Time Temp Pulse Resp B/P Pulse Ox O2 Delivery O2 Flow Rate FiO2 11/27/16 11:02 126 11/27/16 11:01 98.4 137 28 104/55 92 11/27/16 10:20 90 Venturi Mask 6.00 50 11/27/16 10:15 98.3 146 28 135/60 95 11/27/16 07:38 137 16 124/58 98 6 50 11/27/16 06:18 98.6 134 24 123/59 96 50 11/27/16 05:03 97 Venturi Mask 50 11/27/16 05:01 99.0 136 24 112/52 97 Venturi Mask 50 11/27/16 04:30 134 24 127/58 97 Venturi Mask 50 11/27/16 03:46 140 24 116/53 97 Simple Mask 50 11/27/16 03:04 98.6 149 22 122/60 97 Simple Mask 11/27/16 02:30 98.6 140 22 131/56 98 Nasal Cannula 3 11/27/16 02:01 98.6 140 22 119/59 98 Nasal Cannula 3 11/27/16 01:02 98.4 136 22 116/84 98 Nasal Cannula 3 11/27/16 00:33 98.1 150 22 115/56 97 Nasal Cannula 3 11/26/16 23:07 95.5 139 22 122/59 98 Nasal Cannula 3 11/26/16 23:07 98 Nasal Cannula 3 11/26/16 22:09 128 20 126/60 97 11/26/16 21:26 92.3 142 20 125/58 96 Nasal Cannula 3 11/26/16 21:03 91.9 146 22 109/52 97 3 11/26/16 19:22 100 Nasal Cannula 2 11/26/16 19:21 89.4 132 18 106/58 100 Nasal Cannula 2 11/26/16 19:05 88.9 134 12 106/58 100 Nasal Cannula 2.0 11/26/16 18:09 87.4 121 12 122/60 98 Nasal Cannula 2.0 11/26/16 18:04 87.4 11/26/16 16:41 12 Room Air 11/26/16 16:41 63 12 131/58 95 Nasal Cannula 2.0 11/26/16 16:25 86.9 65 12 129/63 Physical Exam GENERAL: NAD with Ventimask on. Does grimace when legs touched. SKIN: Warm and dry. HEAD: Atraumatic. Normocephalic. EYES: Pupils equal and round. No scleral icterus. No injection or drainage. ENT: No nasal bleeding or discharge. Mucous membranes pink and moist. NECK: Trachea midline. No JVD. CARDIOVASCULAR: Tachycardic, regular rhythm RESPIRATORY: No accessory muscle use. Clear to auscultation. Breath sounds equal bilaterally. GASTROINTESTINAL: Abdomen soft, non-tender, nondistended. Hepatic and splenic margins not palpable. MUSCULOSKELETAL: Extremities without clubbing, cyanosis, or edema. No obvious deformities. NEUROLOGICAL: Lethargic, is arousable and does grimace to painful stimuli. PSYCHIATRIC: Lethargic Laboratory Laboratory Tests Test 11/26/16 11/26/16 11/26/16 11/26/16 16:45 17:03 17:50 20:35 White Blood Count 11.2 Red Blood Count 4.97 Hemoglobin 13.9 Hematocrit 43.8 Mean Corpuscular Volume 88.2 Mean Corpuscular Hemoglobin 28.0 Mean Corpuscular Hemoglobin 31.7 Concent Red Cell Distribution Width 19.8 Platelet Count 235 Mean Platelet Volume 10.2 Neutrophils (%) (Auto) 92.3 Lymphocytes (%) (Auto) 1.7 Monocytes (%) (Auto) 5.8 Eosinophils (%) (Auto) 0.0 Basophils (%) (Auto) 0.2 Neutrophils # (Auto) 10.4 Lymphocytes # (Auto) 0.2 Monocytes # (Auto) 0.6 Eosinophils # (Auto) 0.0 Basophils # (Auto) 0.0 CBC Comment DIFF FINAL Differential Comment Prothrombin Time 11.0 Prothromb Time International 1.0 Ratio Activated Partial 33.6 Thromboplast Time Sodium Level 142 Potassium Level 4.9 Chloride Level 107 Carbon Dioxide Level 8.3 Anion Gap 27 Blood Urea Nitrogen 157 Creatinine 8.80 Estimat Glomerular Filtration 4 Rate Random Glucose 149 Lactic Acid Level 0.9 Calcium Level 7.5 Total Bilirubin 0.2 Aspartate Amino Transf 158 (AST/SGOT) Alanine Aminotransferase 63 (ALT/SGPT) Alkaline Phosphatase 129 Total Creatine Kinase 4490 Creatine Kinase MB 139.8 Creatine Kinase MB % 3.1 Total Protein 7.5 Albumin 3.0 Blood Gas Puncture Site RT RADIAL LT RADIAL Blood Gas Patient Temperature 98.6 98.6 Blood Gas HCO3 6 7 Blood Gas Base Excess -23.6 -21.2 Blood Gas Oxygen Saturation 94 95 Arterial Blood pH 6.99 7.12 Arterial Blood Partial 24 21 Pressure CO2 Arterial Blood Partial 140 127 Pressure O2 Arterial Blood Oxygen Content 19.0 15.0 Arterial Blood 1.5 1.6 Carboxyhemoglobin Arterial Blood Methemoglobin 2.4 2.2 Blood Gas Hemoglobin 14.1 11.1 Oxygen Delivery Device RA NASAL CANNULA Blood Gas Inspired Oxygen 21 Urine Color YELLOW Urine Turbidity CLOUDY Urine pH 5.0 Urine Specific [place] 1.017 Urine Protein 30 Urine Glucose (UA) NEG Urine Ketones NEG Urine Occult Blood TRACE Urine Nitrite NEG Urine Bilirubin NEG Urine Urobilinogen LESS THAN 2.0 Urine Leukocyte Esterase NEG Urine Amorphous Sediment MANY Urine Bacteria FEW Urine Yeast (Budding) Microscopic Urinalysis Comment CATH-CULTURE IND Blood Gas Liter Flow 2 Test 11/26/16 11/27/16 11/27/16 11/27/16 21:20 02:15 03:33 05:22 Phosphorus Level 9.6 7.6 Ammonia 51 Total Creatine Kinase 5426 5926 5767 Creatine Kinase MB 153.9 154.9 Creatine Kinase MB % 2.8 2.6 Troponin I 0.04 0.07 0.08 B-Type Natriuretic Peptide 101 192 Thyroxine (T4) 3.1 Thyroid Stimulating Hormone 0.329 3rd Gen Random Cortisol 49.3 White Blood Count 5.5 Red Blood Count 4.02 Hemoglobin 11.4 Hematocrit 35.0 Mean Corpuscular Volume 86.9 Mean Corpuscular Hemoglobin 28.4 Mean Corpuscular Hemoglobin 32.7 Concent Red Cell Distribution Width 20.5 Platelet Count 178 Mean Platelet Volume 10.1 Neutrophils (%) (Auto) 90.0 Lymphocytes (%) (Auto) 1.6 Monocytes (%) (Auto) 7.6 Eosinophils (%) (Auto) 0.0 Basophils (%) (Auto) 0.8 Neutrophils # (Auto) 4.9 Lymphocytes # (Auto) 0.1 Monocytes # (Auto) 0.4 Eosinophils # (Auto) 0.0 Basophils # (Auto) 0.0 CBC Comment DIFF FINAL Differential Comment Activated Partial 28.5 Thromboplast Time Sodium Level 153 Potassium Level 3.1 Chloride Level 117 Carbon Dioxide Level 12.0 Anion Gap 24 Blood Urea Nitrogen 142 Creatinine 6.54 Estimat Glomerular Filtration 6 Rate Random Glucose 78 Lactic Acid Level 1.0 Calcium Level 6.1 Protein Corrected Calcium 6.9 Magnesium Level 2.2 Total Bilirubin 0.3 Direct Bilirubin 0.1 Indirect Bilirubin 0.2 Aspartate Amino Transf 219 (AST/SGOT) Alanine Aminotransferase 71 (ALT/SGPT) Alkaline Phosphatase 115 Total Protein 5.3 Albumin 2.1 Blood Gas Puncture Site RT RADIAL Blood Gas Patient Temperature 98.6 Blood Gas HCO3 11 Blood Gas Base Excess -14.5 Blood Gas Oxygen Saturation 92 Arterial Blood pH 7.29 Arterial Blood Partial 24 Pressure CO2 Arterial Blood Partial 92 Pressure O2 Arterial Blood Oxygen Content 14.8 Arterial Blood 2.0 Carboxyhemoglobin Arterial Blood Methemoglobin 2.2 Blood Gas Hemoglobin 11.3 Oxygen Delivery Device Venti Mask Blood Gas Liter Flow 6 Blood Gas Inspired Oxygen 50 Date/Time Procedure Status Source Growth 11/26/16 21:20 Aerobic Blood Culture - Preliminary Resulted Blood Peripheral NO GROWTH IN 1 DAY 11/26/16 21:20 Anaerobic Blood Culture - Preliminary Resulted Blood Peripheral NO GROWTH IN 1 DAY 11/26/16 17:50 Urine Culture Received Urine Clean Catch Pending (Agatha Cavazos) Result Diagram: 11/27/16 0333 11/27/16 0333 Imaging Last Impressions Pelvis X-Ray 11/26/16 0000 Signed Impressions: Service Date/Time: Saturday, November 26, 2016 17:18 - CONCLUSION: 1. No acute findings. Mild osteoarthritis of the hips. Vascular calcifications in the pelvis. Domenico Mar MD Head CT 11/26/16 0000 Signed Impressions: Service Date/Time: Saturday, November 26, 2016 17:22 - CONCLUSION: No acute intracranial findings. Lei Dewitt MD Chest X-Ray 11/26/16 0000 Signed Impressions: Service Date/Time: Saturday, November 26, 2016 17:19 - CONCLUSION: No acute cardiopulmonary disease Lei Dewitt MD Cervical Spine CT 11/26/16 0000 Signed Impressions: Service Date/Time: Saturday, November 26, 2016 17:25 - CONCLUSION: 1. Moderate degenerative disc disease. No acute findings. Domenico Mar MD (Agatha Cavazos) Assessment and Plan Problem List: (1) Renal failure Plan: Acute renal failure appears to be from rhabdomyolysis with severe dehydration. It is not certain if there has been any ingestion of nephrotoxic medications at home. Her baseline SCr is not known. IVF has been ordered and SCr has improved overnight. She is still severely acidotic and is on bicarb drip. Repeat K+ level ordered--repletion ordered as PRN protocol (20 meq q2h x3 doses for K+ between 2.9-3.2 & 20 meq q2h x2 doses for K+ between 3.3-3.6) At this point, she is non-oliguric. Continue to follow I&Os We will continue to monitor her renal functions and status closely. Remains to be seen if dialytic intervention will be required, but there is no emergent need at this moment. Medications should be adjusted for the patient's renal dysfunction. Avoid gadolinium. (2) Rhabdomyolysis Plan: As above. Appreciate CC input. (3) Dehydration, severe (4) Anemia Plan: Repeat CBC with Fe panel. Her breath smells of GI bleed. FOBT ordered as well. (Agatha Cavazos) Assessment and Plan The exam, history, and the medical decision-making described in the above note were completed with the assistance of the SANDI. I reviewed and agree with the findings presented. I attest that I had a [id number] encounter with the patient on the same day, and personally performed and documented my assessment and findings in the medical record. (Luda Kirby MD) Problem Qualifiers (1) Rhabdomyolysis: Qualified Code: T79.6XXA - Traumatic rhabdomyolysis, initial encounter Agatha Cavazos Nov 27, 2016 11:42 Luda Kirby MD Nov 27, 2016 16:59
[2016-11-27 12:34] LABS: CREATINE KINASE 5524 U/L (26-192); FERRITIN 677 NG/ML (8-252); MAGNESIUM 2.2 MG/DL (1.5-2.5); TRANSFERRIN IRON PROFILE 108 MG/DL (200-360)
[2016-11-27 12:46] LABS: CKMB 119.9 NG/ML (0.5-3.6)
[2016-11-27 12:49] LABS: BICARBONATE 14.1 MEQ/L (21.0-32.0)
[2016-11-27] MEDS: POTASSIUM CHLOR 20 MEQ PREMIX 100 ML IV SCH ×2 (14:30→15:50)
--- NOTE | 2016-11-27 14:31 | EKG ---
Date Performed: 11/27/2016 Time Performed: 02:20:37 PTAGE: 71 years EKG: SINUS TACHYCARDIA WITH SHORT DC INTERVAL ST DEVIATION AND MODERATE T-WAVE ABNORMALITY, CONS IDER LATERAL ISCHEMIA ST DEVIATION AND MODERATE T-WAVE ABNORMALITY, CONSIDER INFERIOR ISCHEMIA ABNORM AL ECG PREVIOUS TRACING : 11/27/2016 00.14 Since previous tracing, no significant change noted DOCTOR: Ghanshyam Zamora Interpretating Date/Time 11/27/2016 14:30:47
--- NOTE | 2016-11-27 14:39 | EKG ---
Date Performed: 11/27/2016 Time Performed: 00:14:42 PTAGE: 71 years EKG: SINUS TACHYCARDIA WITH SHORT MA INTERVAL, POSSIBLE ATRIAL FLUTTER ST DEVIATION AND MODERATE T-WAVE ABNORMALITY, CONSIDER INFERIOR AND LATERAL ISCHEMIA ABNORMAL ECG Previous 11/26/16 17:42 Compar ed to the PREVIOUS TRACING , rate has increased with increase in ST/T wave changes DOCTOR: Ghanshyam Zamora Interpretating Date/Time 11/27/2016 14:39:13
--- NOTE | 2016-11-27 15:14 | HHI.CCPN ---
Subjective Remarks/Hospital Course 11/26: Elderly female found down in her backyard her next door neighbor. It is unknown the amount of time the patient had been lying on the ground. Patient was noted to have an ulcer in the occipital region and the sacral region. The patient was noted to be hypothermic 86.0, with altered mental status. The patient was transferred to [facility] ED at which time imaging studies and laboratory studies were performed. The patient was noted to have a pH of 6.99, with a bicarbonate level of 6, and rhabdomyolysis with a CK level 4490. Patient received approximately 4 L of IV fluids, 2 A of sodium bicarbonate, nephrology was consulted, and rewarming was instituted. Critical care medicine was consulted for management and treatment. Upon my arrival to the ED, the patient was alert to name, and stated her name , slightly dysarthric, normotensive, and following motor commands. 11/27: Elderly female laying in bed, awake, follows some commands. Disoriented/ confused. Does not know she is in the hospital. Squeezes with both upper extremities. Objective Vital Signs Date Time Temp Pulse Resp B/P Pulse Ox O2 Delivery O2 Flow Rate FiO2 11/27/16 11:02 126 11/27/16 11:01 98.4 28 104/55 92 11/27/16 10:20 Venturi Mask 6.00 50 Intake and Output 11/26/16 11/26/16 11/27/16 08:00 16:00 00:00 Intake Total 1000 ml Output Total 600 ml Balance 400 ml Result Diagram: 11/27/16 0333 11/27/16 1128 Other Results Laboratory Tests Test 11/26/16 11/26/16 11/27/16 17:03 20:35 05:22 Blood Gas Puncture Site RT RADIAL LT RADIAL RT RADIAL Blood Gas Patient Temperature 98.6 98.6 98.6 Blood Gas HCO3 6 mmol/L 7 mmol/L 11 mmol/L (22-26) (22-26) (22-26) Blood Gas Base Excess -23.6 mmol/L -21.2 mmol/L -14.5 mmol/L (-2-2) (-2-2) (-2-2) Blood Gas Oxygen Saturation 94 % (90-100) 95 % (90-100) 92 % (90-100) Arterial Blood pH 6.99 7.12 7.29 (7.380-7.420) (7.380-7.420) (7.380-7.420) Arterial Blood Partial 24 mmHg (38-42) 21 mmHg (38-42) 24 mmHg (38-42) Pressure CO2 Arterial Blood Partial 140 mmHG 127 mmHG 92 mmHG Pressure O2 (61-120) (61-120) (61-120) Arterial Blood Oxygen Content 19.0 Vol % 15.0 Vol % 14.8 Vol % (12.0-20.0) (12.0-20.0) (12.0-20.0) Arterial Blood 1.5 % (0-4) 1.6 % (0-4) 2.0 % (0-4) Carboxyhemoglobin Arterial Blood Methemoglobin 2.4 % (0-2) 2.2 % (0-2) 2.2 % (0-2) Blood Gas Hemoglobin 14.1 G/DL 11.1 G/DL 11.3 G/DL (12.0-16.0) (12.0-16.0) (12.0-16.0) Oxygen Delivery Device RA NASAL CANNULA Venti Mask Blood Gas Inspired Oxygen 21 % 50 % Blood Gas Liter Flow 2 L/M 6 L/M Imaging Last Impressions Renal Ultrasound 11/27/16 0000 Signed Impressions: Service Date/Time: Sunday, November 27, 2016 07:54 - CONCLUSION: Small echogenic kidneys without hydronephrosis. Trace pleural effusions. Trace ascites. Richard Bernal MD FACR Chest X-Ray 11/27/16 0000 Signed Impressions: Service Date/Time: Sunday, November 27, 2016 06:59 - CONCLUSION: Interval development of left lower lobe consolidation. Josesito Kumar MD Pelvis X-Ray 11/26/16 0000 Signed Impressions: Service Date/Time: Saturday, November 26, 2016 17:18 - CONCLUSION: 1. No acute findings. Mild osteoarthritis of the hips. Vascular calcifications in the pelvis. Domenico Mar MD Head CT 11/26/16 0000 Signed Impressions: Service Date/Time: Saturday, November 26, 2016 17:22 - CONCLUSION: No acute intracranial findings. Lei Dewitt MD Cervical Spine CT 11/26/16 0000 Signed Impressions: Service Date/Time: Saturday, November 26, 2016 17:25 - CONCLUSION: 1. Moderate degenerative disc disease. No acute findings. Domenico Mar MD Objective Remarks GENERAL: Elderly female appearing older than stated age. SKIN: Cool and dry. Noted ulcer occipital and sacral area HEAD: Normocephalic. EYES: PERRLA, 3mm brisk. No scleral icterus. No injection or drainage. ENT: No nasal bleeding or discharge. Mucous membranes dry. Ventimask 50% NECK: Trachea midline. No JVD. CARDIOVASCULAR: Tachycardic, regular rhythm. RESPIRATORY: No accessory muscle use. Breath sounds equal bilaterally. Scattered rhonchi bilaterally. GASTROINTESTINAL: Abdomen soft, non-tender, nondistended. No guarding. MUSCULOSKELETAL: Extremities without clubbing, cyanosis, or edema. No obvious deformities. Pain with extension left lower extremity NEUROLOGICAL: Awake and alert. RASS 0. No gross focal/sensory deficits.Dysarthia noted. Follows commands in all 4 extremities. A/P Assessment and Plan This is a critically ill female, found unconscious from unknown limited of time , presenting with rhabdomyolysis, hypothermia, altered mental status, with a severe metabolic acidosis. The patient's medical records revealed the patient has a history of seizures, and cardiovascular disease. This is included in the differential, and the patient remains critically ill, and prognosis is guarded. Plan by systems: Neurologic: Seizure disorder Altered mental status-secondary to hypothermia, toxic encephalopathy -GCS 14, patient is alert to name, dysarthria -Obtain EEG -Follow up ammonia level -Neurology consult appreciate recommendations -CT head 11/26-no intracranial abnormality -CT cervical 11/26 moderate degenerative disc disease -Maintain c-collar, place [place] J until clinical assessment -Normal swallow evaluation by speech therapy in a.m. Respiratory: -No acute issues respiratory issues -Maintain O2 sat greater than 92%. O2 at 2 L nasal cannula O2 saturation 99% -Bronchodilators every 4 hours when necessary for wheezing -Maintain head of bed elevation 30 patient is an aspiration risk -CXR1/6- no abnormalities -Follow-up repeat ABG Cardiovascular: Cardiovascular disease History of CABG x 3 vessels Hyperlipidemia H/O A. fib (per old records) Sinus tachycardia -HR 120's-continue to volume resuscitate -Obtain EKG -Obtain serial troponin -Obtain BNP -Obtain ECHO -Past medical records revealed patients on ASA 81 mg daily, will resume when clinically indicated Renal: ALEXEY probably secondary to rhabdomyolysis/ dehydration Dehydration -Initial creatinine 8.8-volume resuscitation, 4 L of crystalloid NS, 1L LR, sodium bicarbonate infusion 100 cc/hr -Barrios in place-has good urine output. Nephrology consult requested. -- Strict I/Os, monitor and replete electro lites, follow BUN/creatinine FEN/GI: Metabolic acidosis Elevated transaminases -Initial ABG 6.99/24/140/6/-23.6, received 2 amps of sodium bicarbonate and the ED -Repeat ABG 7.111/20.8/127/6.5/-21, 2 amps of sodium bicarbonate given, sodium bicarbonate infusion initiated -Maintain NPO status -Sodium bicarbonate infusion 100 cc/hour Heme/ID: -Obtain blood and urine cultures -Lactate 0.2 Endocrine: Hypothyroidism -TSH borderline low -Patient home med includes Synthroid 100 mcgs/day which is on hold currently SKIN/MUSUCULOSKELETAL: Hypothermia Rhabdomyolysis -Apply Jennifer hugger -Warm IV fluids -Monitor core temp via Barrios -Glucose monitoring per ICU protocol -- SSI Prophylaxis: GI Prophylaxis Protonix DVT Prophylaxis -- SCDs Lines: Peripheral IVs 2. Central line if indicated. Dispo: Alonzo Escobar MD Nov 27, 2016 15:14
[2016-11-27] MEDS ORDERED: CALCIUM GLUCONATE INJ 2 GM in DEXTROSE 5% IN WATER 100ML INJ 100 ML IV ONE ×2 (16:00)
[2016-11-27] MEDS ORDERED: POTASSIUM CHLOR 20 MEQ PREMIX 100 ML IV PRN (16:45)
[2016-11-27] MEDS ORDERED: LORazepam 2 MG/ML VIAL IV PUSH PRN (17:15)
[2016-11-27] MEDS: PANTOPRAZOLE INJ 80 MG in SODIUM CHLORIDE 0.9% INJ 100 ML IV SCH (18:26)
[2016-11-27] MEDS ORDERED: PANTOPRAZOLE INJ 80 MG in SODIUM CHLORIDE 0.9% INJ 35 ML IV ONE (19:00)
[2016-11-27 19:04] LABS: AUTOMATED NEUTROPHIL # 6.5 TH/MM3 (1.8-7.7); BASOPHIL % 0.1 % (0.0-2.0); HEMATOCRIT 31.2 % (35.0-46.0); HEMO FLAGS DIFF FINAL; LYMPH % 3.4 % (9.0-44.0); LYMPHOCYTE # 0.2 TH/MM3 (1.0-4.8); MEAN CELL VOLUME 85.7 FL (80.0-100.0); MEAN CORPUSCULAR HEMOGLOBIN 28.7 PG (27.0-34.0); MEAN CORPUSCULAR HGB CONC 33.5 % (32.0-36.0); NEUT % 88.5 % (16.0-70.0); PLATELET COUNT 150 TH/MM3 (150-450); RED BLOOD COUNT 3.64 MIL/MM3 (4.00-5.30); RED CELL DISTRIBUTION WIDTH 20.5 % (11.6-17.2); WHITE BLOOD COUNT 7.3 TH/MM3 (4.0-11.0)
--- NOTE | 2016-11-27 19:50 | MG ---
cc: GOPAL SCHUMACHER Lab No: [id number] Date: 11/27/16 Age: 71 Sex: F Race: TECHNIQUE 17 channel EEG. DESCRIPTION The background rhythm reveals generalized slowing in the theta range at roughly 6 Hz, amplitude is 20-30 microvolts. Occasional sharp waves are identified in bilateral parietal areas. There are no lateralizing features. INTERPRETATION Abnormal study consistent with an encephalopathy. However, the sharp activity bilaterally suggests the possibility of intermittent seizure activity. MD DIMAS Gil/SNEHA /4:53 PM /7:46 PM
[2016-11-27 20:04] LABS: BICARBONATE 19.1 MEQ/L (21.0-32.0); POTASSIUM 3.7 MEQ/L (3.5-5.1)
[2016-11-27] MEDS: levETIRAcetam INJ 500 MG in SODIUM CHLORIDE 0.9% INJ 100 ML IV SCH (20:29)
--- NOTE | 2016-11-27 20:50 | MB ---
cc: GOPAL SCHUMACHER DATE OF CONSULTATION 11/27/16 REASON FOR CONSULTATION Mental status change. HISTORY OF PRESENT ILLNESS Ms. Qiu is a 71-year-old woman who has a history of seizure disorder but none for many years. She takes phenobarbital. Apparently was found unresponsive, lying on the ground in her home by her neighbor. It is unclear exactly how long she was out for. No focal abnormalities were identified. No tonic-clonic activity is seen. She was found to be acidotic with pH of 6.99. She had rhabdomyolysis with a CPK of 4490 with renal failure as well. PAST MEDICAL HISTORY History of seizure disorder, history of possible atrial fibrillation, breast cancer in the past, thyroid disease, CABG procedure, cholecystectomy. ALLERGIES ALLERGIES TO CODEINE, DEMEROL, IODINE, VITAMIN C. MEDICATIONS 1. Protonix 40 milligrams daily. 2. Chlorhexidine. 3. Sodium bicarbonate. 4. Docusate. 5. Zofran. 6. Dulcolax. 7. DuoNeb. NEUROLOGIC EXAMINATION VITAL SIGNS: Blood pressure is 100/50, pulse 143, respirations 23, temperature is 99 degrees. NEURO: Higher cortical function, she is lethargic but arousable. She follows simple commands. She does speak. Cranial nerves no facial asymmetry. Motor exam no focal deficits. No tonic clonic activity identified. LABORATORY DATA White count 5500, hemoglobin 11.4, hematocrit 35%, platelet count 178,000, PT 11, INR 1, APTT 33.6. Sodium is 152, potassium 3, chloride 115, BUN is 138, creatinine 6.31. IMPRESSION Episode of loss of consciousness, possible seizure with postictal state. I did review the EEG as well which shows generalized slowing but she does have sharp activity and bilateral parietal areas consistent with seizure disorder. RECOMMENDATIONS Continue phenobarbital. Will check a stat phenobarb level. Also, add Keppra. Place under seizure precautions. ADDENDUM CT of the brain of the patient was normal. MD DIMAS Gil/SNEHA /5:09 PM /8:37 PM
[2016-11-27] MEDS ORDERED: ADENOSINE IV SOLN 3 MG/ML 2 ML VIAL ONE (21:49)
[2016-11-27] MEDS ORDERED: ADENOSINE IV SOLN 3 MG/ML 2 ML VIAL IV PUSH ONE ×2 (22:00→22:15)
[2016-11-27] MEDS ORDERED: LACTATED RINGER'S 1000 ML INJ 250 ML IV ONE (22:00)
[2016-11-27] MEDS ORDERED: POTASSIUM CHLOR 20 MEQ PREMIX 100 ML IV ONE (22:00)
[2016-11-27] MEDS ORDERED: DILTIAZEM INJ 125 MG in SODIUM CHLORIDE 0.9% INJ 100 ML IV SCH (22:15)
[2016-11-27] MEDS ORDERED: DILTIAZEM HCL 25 MG/5 ML VIAL IVP ONE (22:15)
--- NOTE | 2016-11-27 22:28 | PD.PROCEDR ---
Procedure Note Procedure Date: 11/27/16 Procedure: Cardioversion Indication: SVT Details of procedure: Patient was in heart rate 140s, appeared sinus. Gave LR 1 L bolus. Heart rate later increased to 160s, SBP 95. Was unsure if it was atrial flutter. Gave adenosine 6 mg IV and was in sinus rhythm in 80s then recurred to 160s. Then gave adenosine 12 mg IV and again sinus in 80s and then recurred. BP did improve while rate was controlled, was SBP in 150s. Therefore, transitioned to cardizem drip to provide rate control, titrated to 15 mg/hr. Monitored UOP closely throughout the night to ensure maintaining perfusion. UOP 550 overnight. SBP 110s-120s. Updated Dr. Escobar. Brittni Daniel MD Nov 27, 2016 22:28
[2016-11-27] MEDS ORDERED: CALCIUM GLUCONATE INJ 1 GM in DEXTROSE 5% IN WATER 100ML INJ 100 ML IV ONE ×2 (23:00)
[2016-11-27 23:34] LABS: HEMATOCRIT 30.2 % (35.0-46.0); REVIEW FLAG FINAL
[2016-11-28] VITALS (17 sets, daily range): BP systolic 106–120; BP diastolic 51–60; PULSE 115–143; RESP 18–22; TEMP 99.3–100.1; O2SAT 89–99
[2016-11-28] MEDS: CHLORHEXIDINE GLUCONATE 2 % 1 PACK (2 CLOTHS) TOP SCH (04:00)
--- NOTE | 2016-11-28 05:25 | RADRPT ---
EXAM DATE/TIME: 11/28/2016 03:30 [facility] COMPARISON: CHEST SINGLE AP, November 27, 2016, 6:59. INDICATIONS : Shortness of breath, possible pulmonary disease. MEDICAL HISTORY : None. SURGICAL HISTORY : CABG. ENCOUNTER: Subsequent ACUITY: 3 days PAIN SCORE: Non-responsive. LOCATION: Bilateral chest FINDINGS: Increasing consolidation in the left lower lung with loss of delineation of most of the left hemidiap hragm. The right lung is clear. The heart is similar in size to prior. Evidence of prior median st ernotomy and CABG. Stable ossific density inferior to the right humeral head. CONCLUSION: Increasing consolidation in the left lower lung. Josesito Kumar MD on November 28, 2016 at 5:22 Board Certified Radiologist. This report was verified electronically.
[2016-11-28] MEDS: DILTIAZEM INJ 125 MG in SODIUM CHLORIDE 0.9% INJ 100 ML IV SCH (06:00)
[2016-11-28] MEDS: PANTOPRAZOLE INJ 80 MG in SODIUM CHLORIDE 0.9% INJ 100 ML IV SCH ×2 (06:29→17:45)
[2016-11-28 07:14] LABS: HEMATOCRIT 29.8 % (35.0-46.0); MEAN CELL VOLUME 84.5 FL (80.0-100.0); MEAN CORPUSCULAR HEMOGLOBIN 27.9 PG (27.0-34.0); PLATELET COUNT 150 TH/MM3 (150-450); RED BLOOD COUNT 3.53 MIL/MM3 (4.00-5.30); RED CELL DISTRIBUTION WIDTH 20.6 % (11.6-17.2); REVIEW FLAG FINAL; WHITE BLOOD COUNT 11.5 TH/MM3 (4.0-11.0)
[2016-11-28 07:44] LABS: BICARBONATE 21.6 MEQ/L (21.0-32.0); MAGNESIUM 2.1 MG/DL (1.5-2.5); POTASSIUM 3.3 MEQ/L (3.5-5.1)
[2016-11-28] MEDS: SODIUM BICARBONATE 8.4% INJ 150 MEQ in WATER STERILE FOR INJ 850 ML IV SCH (07:55)
[2016-11-28] MEDS: DOCUSATE SODIUM 100 MG/10 ML UDC G-TUBE SCH ×2 (07:55→21:07)
[2016-11-28] MEDS: SODIUM CHLORIDE 0.9% FLUSH 5 ML FLUSH IV FLUSH SCH ×2 (07:56→21:18)
[2016-11-28] MEDS ORDERED: CALCIUM GLUCONATE INJ 2 GM in DEXTROSE 5% IN WATER 100ML INJ 100 ML IV ONE ×2 (09:30)
[2016-11-28] MEDS: levETIRAcetam INJ 500 MG in SODIUM CHLORIDE 0.9% INJ 100 ML IV SCH ×2 (09:42→21:26)
[2016-11-28] MEDS: POTASSIUM CHLOR 10 MEQ PREMIX 100 ML IV SCH ×3 (09:49→11:19)
--- NOTE | 2016-11-28 11:18 | HHI.CCPN ---
Subjective Remarks/Hospital Course 11/26: Elderly female found down in her backyard her next door neighbor. It is unknown the amount of time the patient had been lying on the ground. Patient was noted to have an ulcer in the occipital region and the sacral region. The patient was noted to be hypothermic 86.0, with altered mental status. The patient was transferred to [facility] ED at which time imaging studies and laboratory studies were performed. The patient was noted to have a pH of 6.99, with a bicarbonate level of 6, and rhabdomyolysis with a CK level 4490. Patient received approximately 4 L of IV fluids, 2 A of sodium bicarbonate, nephrology was consulted, and rewarming was instituted. Critical care medicine was consulted for management and treatment. Upon my arrival to the ED, the patient was alert to name, and stated her name , slightly dysarthric, normotensive, and following motor commands. 11/27: Elderly female laying in bed, awake, follows some commands. Disoriented/ confused. Does not know she is in the hospital. Squeezes with both upper extremities. 11/28: Resting in bed on nonrebreather facemask. Heart rate remains 1 teens on Cardizem drip which was started last night. Had runs of SVT yesterday. Received 1 dose of Ativan as in last night. Had a temperature 100.5 this morning. Follows commands currently. Not in any acute distress. Was started on anticonvulsants by neurology as EEG showed sharp waves on 11/27. She has had some diarrhea and melena. No hypotension overnight. Hemoglobin around 10 this morning. Objective Vital Signs Date Time Temp Pulse Resp B/P Pulse Ox O2 Delivery O2 Flow Rate FiO2 11/28/16 09:57 98 Partial Rebreather 12.00 70 11/28/16 07:58 100.0 122 20 108/54 Intake and Output 11/27/16 11/27/16 11/28/16 08:00 16:00 00:00 Intake Total 1300 ml Output Total 350 ml 304 ml Balance -350 ml 996 ml Result Diagram: 11/28/16 0630 11/28/16 0630 Other Results Microbiology Date/Time Procedure Status Source Growth 11/27/16 13:10 Stool Occult Blood (CELESTINE) - Final Complete Stool Stool HEMOCCULT POSITIVE Imaging Last Impressions Renal Ultrasound 11/27/16 0000 Signed Impressions: Service Date/Time: Sunday, November 27, 2016 07:54 - CONCLUSION: Small echogenic kidneys without hydronephrosis. Trace pleural effusions. Trace ascites. Richard Bernal MD FACR Chest X-Ray 11/27/16 0000 Signed Impressions: Service Date/Time: Sunday, November 27, 2016 06:59 - CONCLUSION: Interval development of left lower lobe consolidation. Josesito Kumar MD Pelvis X-Ray 11/26/16 0000 Signed Impressions: Service Date/Time: Saturday, November 26, 2016 17:18 - CONCLUSION: 1. No acute findings. Mild osteoarthritis of the hips. Vascular calcifications in the pelvis. Domenico Mar MD Head CT 11/26/16 0000 Signed Impressions: Service Date/Time: Saturday, November 26, 2016 17:22 - CONCLUSION: No acute intracranial findings. Lei Dewitt MD Cervical Spine CT 11/26/16 0000 Signed Impressions: Service Date/Time: Saturday, November 26, 2016 17:25 - CONCLUSION: 1. Moderate degenerative disc disease. No acute findings. Domenico aMr MD Objective Remarks GENERAL: Elderly female appearing older than stated age. SKIN: Cool and dry. Noted ulcer occipital and sacral area HEAD: Normocephalic. EYES: PERRLA, 3mm brisk. No scleral icterus. No injection or drainage. ENT: No nasal bleeding or discharge. Mucous membranes dry. Ventimask 50% NECK: Trachea midline. No JVD. CARDIOVASCULAR: Tachycardic, regular rhythm. RESPIRATORY: No accessory muscle use. Breath sounds equal bilaterally. Scattered rhonchi bilaterally. GASTROINTESTINAL: Abdomen soft, non-tender, nondistended. No guarding. MUSCULOSKELETAL: Extremities without clubbing, cyanosis, or edema. No obvious deformities. Pain with extension left lower extremity NEUROLOGICAL: Drowsy, easily arousable. No gross focal/sensory deficits.Dysarthia noted. Follows commands in all 4 extremities. A/P Assessment and Plan This is a critically ill female, found unconscious from unknown limited of time , presenting with rhabdomyolysis, hypothermia, altered mental status, with a severe metabolic acidosis. The patient's medical records revealed the patient has a history of seizures, and cardiovascular disease. This is included in the differential, and the patient remains critically ill, and prognosis is guarded. Plan by systems: Neurologic: Seizure disorder Altered mental status-secondary to hypothermia, toxic encephalopathy -GCS 14, patient is alert to name, dysarthria -Obtain EEG -Follow up ammonia level -Neurology consult appreciate recommendations -CT head 11/26-no intracranial abnormality -CT cervical 11/26 moderate degenerative disc disease -Maintain c-collar, place [place] J until clinical assessment -Normal swallow evaluation by speech therapy in a.m. Respiratory: -No acute issues respiratory issues -Maintain O2 sat greater than 92%. O2 at 2 L nasal cannula O2 saturation 99% -Bronchodilators every 4 hours when necessary for wheezing -Maintain head of bed elevation 30 patient is an aspiration risk -CXR1/6- no abnormalities -Follow-up repeat ABG Cardiovascular: Cardiovascular disease History of CABG x 3 vessels Hyperlipidemia H/O A. fib (per old records) Sinus tachycardia -HR 120's-continue to volume resuscitate. Started on Cardizem drip on 11/27, will attempt titrating down. --Past medical records revealed patients on ASA 81 mg daily, will resume when tolerating by mouth. Renal: ALEXEY probably secondary to rhabdomyolysis/ dehydration Dehydration -Initial creatinine 8.8-volume resuscitation, 4 L of crystalloid NS, 1L LR, sodium bicarbonate infusion 150 cc/hr -Barrios in place-has good urine output. Nephrology consult requested. -- Strict I/Os, monitor and replete electrolytes, follow BUN/creatinine FEN/GI: Metabolic acidosis Elevated transaminases Melena Diarrhea -Initial ABG 6.99/24/140/6/-23.6, received 2 amps of sodium bicarbonate and the ED -Repeat ABG 7.111/20.8/127/6.5/-21, 2 amps of sodium bicarbonate given, sodium bicarbonate infusion initiated -Maintain NPO status. Started Protonix drip for melena. GI consult requested. Follow serial H/H. -Sodium bicarbonate infusion 150 cc/hour Heme/ID: -F/u blood and urine cultures. Chest x-ray with left lower lobe infiltrate. Started empiric antibiotic coverage with Levaquin/Flagyl IV on 11/28 to cover for pneumonia. Suspect aspiration. -Lactate 0.2 Endocrine: Hypothyroidism -TSH borderline low -Patient home med includes Synthroid 100 mcgs/day which is on hold currently SKIN/MUSUCULOSKELETAL: Hypothermia Rhabdomyolysis - s/p warming. -Monitor core temp via Barrios -Glucose monitoring per ICU protocol -- SSI Prophylaxis: GI Prophylaxis Protonix gtt DVT Prophylaxis -- SCDs Lines: Peripheral IVs 2. Central line if indicated. Alonzo sEcobar MD Nov 28, 2016 11:18
[2016-11-28] MEDS: LEVOFLOXACIN 500 MG PREMIX INJ 100 ML IV SCH (11:19)
[2016-11-28] MEDS: metroNIDAZOLE 500 MG INJ 100 ML IV SCH ×2 (11:20→18:23)
--- NOTE | 2016-11-28 11:59 | HHI.NPPN ---
Subjective History of Present Illness The patient is a 71 yo [place] female who was brought in yesterday evening after being found down at her home for an unknown amount of time. As per records as the patient is very lethargic and not able to provide any information, her neighbor became concerned when they hadn't seen her for some time and called for a welfare check. EMS found her down with AMS and hypothermic. On arrival, her was found to be in renal failure and profoundly acidotic. She was given 4L of NS bolus as well as 2 amps of bicarb. She has been transferred to the ICU for closer monitoring. We were consulted for evaluation of potential need for dialysis. SCr on arrival 8.80 that has improved to 6.54 after IV fluids Na was 142 and is now 153 K+ was 4.9 now 3.1 CO2 was 8.3 now 12 (HCO3 per ABG 6 on admission and improved to 11 at consult) We have only 2 other SCr levels for review from previous admissions: 1.30 in 2009 and 0.73 in 2006 Interval History The patient's [id number] present today. States that she has a known seizure disorder and had told her that was having multiple falls at home for the past couple of weeks. Also mentions that she has a "valve problem" that she was offer surgical repair for, but opted against. (Agatha Cavazos) Objective Data Data 11/27/16 11/28/16 19:00 07:00 Intake Total 1300 ml 1857 ml Output Total 654 ml 553 ml Balance 646 ml 1304 ml Intake IV Total 1300 ml 1857 ml Output Urine Total 650 ml 550 ml Stool Total 4 ml 3 ml Vital Signs Date Time Temp Pulse Resp B/P Pulse Ox O2 Delivery O2 Flow Rate FiO2 11/28/16 09:57 98 Partial Rebreather 12.00 70 11/28/16 07:58 100.0 122 20 108/54 99 11/28/16 06:00 115 11/28/16 05:00 122 11/28/16 04:00 121 11/28/16 03:00 100.1 125 22 110/51 98 11/28/16 03:00 125 11/28/16 02:00 130 11/28/16 01:00 127 11/28/16 00:00 143 11/27/16 23:00 99.9 143 24 117/63 95 11/27/16 23:00 143 11/27/16 22:10 137 11/27/16 22:00 156 11/27/16 21:00 146 11/27/16 20:36 98 Partial Rebreather 10.00 11/27/16 20:00 143 11/27/16 19:00 152 11/27/16 19:00 100.1 152 24 118/60 96 11/27/16 15:28 143 11/27/16 15:28 99.1 143 23 100/50 98 (Agatha Cavazos) -: 11/28/16 0630 11/28/16 0630 Microbiology 11/27/16 Stool Occult Blood (CELESTINE) - Final, Complete HEMOCCULT POSITIVE Medication Review Current Medications Medications (Trade) Dose Ordered Sig/Renea Route Start Time Stop Time Status Last Admin (NS Flush) 2 ml UNSCH PRN IV FLUSH 11/26/16 19:15 (NS Flush) 2 ml BID IV FLUSH 11/26/16 21:00 11/27/16 20:42 (Zofran Inj) 4 mg Q6H PRN IV 11/26/16 19:15 (Colace Liq) 100 mg Q12H G-TUBE 11/26/16 20:00 11/27/16 10:34 (Dulcolax Supp) 10 mg DAILY PRN RECTAL 11/26/16 19:15 Miscellaneous Information 1 Q361D XX 11/26/16 19:15 (Chlorhexidine 2% Cloth) 3 pack Taper DAILY@04 TOP 11/27/16 04:00 11/23/17 03:59 11/28/16 04:00 Chlorhexidine Gluconate 3 pack 3 pack UNSCH PRN TOP 11/26/16 19:15 Sodium Bicarbonate 150 meq/Sterile Water 1,000 ml @ 100 mls/hr Q10H IV 11/26/16 22:00 11/28/16 07:55 (KCl 20 Meq Premix Inj) 100 ml @ 50 mls/hr Q2H PRN IV 11/27/16 16:45 Phenobarbital Sodium 65 mg 65 mg BID IV 11/27/16 21:00 11/27/16 18:24 (Keppra Inj/NS Inj) 105 ml @ 420 mls/hr Q12HR IV 11/27/16 21:00 11/28/16 09:42 Lorazepam 1 mg 1 mg Q4H PRN IV PUSH 11/27/16 17:15 Pantoprazole Sodium 80 mg/ Sodium Chloride 100 ml @ 10 mls/hr Q10H IV 11/27/16 19:00 11/28/16 06:29 (Cardizem Inj/NS Inj) 125 ml @ 0 mls/hr TITRATE IV 11/27/16 23:00 11/28/16 06:00 Fentanyl Citrate 50 mcg 50 mcg Q6HR PRN IV PUSH 11/28/16 07:00 Levofloxacin/ Dextrose 100 ml @ 100 mls/hr Q36H IV 11/28/16 10:00 11/28/16 11:19 Metronidazole 100 ml @ 100 mls/hr Q8H IV 11/28/16 09:00 11/28/16 11:20 (KCl 10 Meq Premix Inj) 100 ml @ 100 mls/hr Q1H IV 11/28/16 09:00 11/28/16 11:59 11/28/16 11:19 (Agatha Cavazos) Physical Exam General Appearance: Comfortable (Agatha Cavazos) Pulmonary Resp Exam: Clear Bilaterally, Breath Sounds Equal (Agatha Cavazos) Cardiology CV Exam: Tachycardia (Agatha Cavazos) Gastrointestinal/Abdomen GI Exam: Soft, Non-Tender (Agatha Cavazos) Integumentary Skin Exam: Dry (Agatha Cavazos) Extremeties Extremities Exam: No Edema (Agatha Cavazos) Neurologic Neuro Remarks Awake, but drowsy (Agatha Cavazos) Assessment/Plan Problem List: (1) Renal failure Plan: Acute renal failure appears to be from rhabdomyolysis with severe dehydration. It is not certain if there has been any ingestion of nephrotoxic medications at home. Her baseline SCr is not known. To continue on bicarb, but add maintenance fluid as well of D5W Monitor Na level. UOP minimal, but renal functions improving. We will monitor closely. Medications should be adjusted for the patient's renal dysfunction. Avoid gadolinium. (2) Rhabdomyolysis Plan: As above. Mention of potential syncopal events by [id number]. Echo pending (3) Dehydration, severe Plan: IVF as ordered (4) Anemia Plan: FOBT positive. GI consultation has been placed (Agatha Cavazos) Plan The exam, history, and the medical decision-making described in the above note were completed with the assistance of the PAMadhavi. I reviewed and agree with the findings presented.. (Luda Kirby MD) Problem Qualifiers (1) Rhabdomyolysis: Qualified Code: T79.6XXA - Traumatic rhabdomyolysis, initial encounter Agatha Cavazos Nov 28, 2016 11:59 Luda Kirby MD Nov 28, 2016 18:07
--- NOTE | 2016-11-28 12:28 | EC ---
Study Study Date:11/28/2016 STUDY CONCLUSIONS SUMMARY - Left ventricle: The cavity size was normal. Wall thickness was normal. Systolic function was mildly reduced. The estimated ejection fraction was in the range of 45% to 50%. Regional wall motion abnormalities cannot be excluded. - Aortic valve: Transvalvular velocity was increased. There was very mild stenosis. - Tricuspid valve: Mild-moderate regurgitation. - Pulmonary arteries: Systolic pressure was mildly to moderately increased. PA peak pressure: 56mm Hg (S). If LV function is below 40, please consider prescribing an ACEI or ARB or document rationale for non-use. PROCEDURE DATA STUDY STATUS: Elective. Procedure: Transthoracic echocardiography. Image quality was fair. Scanning was performed from the parasternal, apical, and subcostal acoustic windows. Study completion: The patient tolerated the procedure well. Transthoracic echocardiography. M-mode, complete 2D, complete spectral Doppler, and color Doppler. Patient status: Inpatient. CARDIAC ANATOMY LEFT VENTRICLE: The cavity size was normal. Wall thickness was normal. Systolic function was mildly reduced. The estimated ejection fraction was in the range of 45% to 50%. Regional wall motion abnormalities cannot be excluded. AORTIC VALVE: Trileaflet; mildly thickened, mildly calcified leaflets. Doppler: Transvalvular velocity was increased. There was very mild stenosis. No regurgitation. Mean gradient: 10mm Hg (S). Peak gradient: 26mm Hg (S). AORTA: Aortic root: The aortic root was normal in size. MITRAL VALVE: Mildly thickened leaflets, . Doppler: Transvalvular velocity was within the normal range. There was no evidence for stenosis. Trace regurgitation. Peak gradient: 4mm Hg (D). LEFT ATRIUM: The atrium was normal in size. RIGHT VENTRICLE: The cavity size was normal. Wall thickness was normal. PULMONIC VALVE: Poorly visualized. Doppler: Transvalvular velocity was within the normal range. There was no evidence for stenosis. No regurgitation. TRICUSPID VALVE: Structurally normal valve. Doppler: Transvalvular velocity was within the normal range. Mild-moderate regurgitation. PULMONARY ARTERY: The main pulmonary artery was normal-sized. Systolic pressure was mildly to moderately increased. RIGHT ATRIUM: The atrium was normal in size. PERICARDIUM: There was no pericardial effusion. BASIC MEASUREMENTS ADULT NORMAL Left ventricle LV internal dimension, ED, chordal level, 44.3 mm 43-52 PLAX LV posterior wall thickness, ED 9.41 mm IVS/LVPW ratio, ED 0.83 <1.3 Ventricular septum Septal thickness, ED 7.85 mm Aortic valve Leaflet separation 19 mm 15-26 Left atrium Anterior-posterior dimension 19 mm Right ventricle RV internal dimension, ED, PLAX 22.4 mm 19-38 BASIC MEASUREMENTS ADULT NORMAL Aortic valve Leaflet separation 19 mm 15-26 Aorta Root diameter, ED 27 mm 20-37 DOPPLER MEASUREMENTS ADULT NORMAL Main pulmonary artery Pressure, S *56 mm Hg =30 Aortic valve Peak velocity, S 253 cm/s Mean velocity, S 139 cm/s VTI, S 38.4 cm Mean gradient, S 10 mm Hg Peak gradient, S 26 mm Hg Mitral valve Peak E-wave velocity 93.9 cm/s Peak A-wave velocity 80.2 cm/s Peak gradient, D 4 mm Hg Peak E/A ratio 1.2 Maximal regurgitant velocity 282 cm/s Tricuspid valve Regurgitant peak velocity 339 cm/s Peak RV-RA gradient, S 46 mm Hg Maximal regurgitant velocity 339 cm/s Systemic veins Estimated CVP 10 mm Hg Right ventricle RV pressure, S *56 mm Hg <30 LEGEND: Mean values are shown as u=mean value. Asterisk (*) montgomery values outside specified normal range. Prepared and signed by Jose Enrique Corral [id number]
--- NOTE | 2016-11-28 13:56 | HHI.PR ---
Review/Management Diagnosis mental status change---possible sz with post ictal state Plan continue phenobarbital and keppra--recheck phenobarbital level in am ok to d/c cervical collar Diagnosis/Plan: Subjective Subjective Comments No acute events reported has been more alert today Active Medications Current Medications Medications (Trade) Dose Ordered Sig/Renea Route Start Time Stop Time Status Last Admin (NS Flush) 2 ml UNSCH PRN IV FLUSH 11/26/16 19:15 (NS Flush) 2 ml BID IV FLUSH 11/26/16 21:00 11/27/16 20:42 (Zofran Inj) 4 mg Q6H PRN IV 11/26/16 19:15 (Colace Liq) 100 mg Q12H G-TUBE 11/26/16 20:00 11/27/16 10:34 (Dulcolax Supp) 10 mg DAILY PRN RECTAL 11/26/16 19:15 Miscellaneous Information 1 Q361D XX 11/26/16 19:15 (Chlorhexidine 2% Cloth) 3 pack Taper DAILY@04 TOP 11/27/16 04:00 11/23/17 03:59 11/28/16 04:00 Chlorhexidine Gluconate 3 pack 3 pack UNSCH PRN TOP 11/26/16 19:15 (KCl 20 Meq Premix Inj) 100 ml @ 50 mls/hr Q2H PRN IV 11/27/16 16:45 Phenobarbital Sodium 65 mg 65 mg BID IV 11/27/16 21:00 11/27/16 18:24 (Keppra Inj/NS Inj) 105 ml @ 420 mls/hr Q12HR IV 11/27/16 21:00 11/28/16 09:42 Lorazepam 1 mg 1 mg Q4H PRN IV PUSH 11/27/16 17:15 Pantoprazole Sodium 80 mg/ Sodium Chloride 100 ml @ 10 mls/hr Q10H IV 11/27/16 19:00 11/28/16 06:29 (Cardizem Inj/NS Inj) 125 ml @ 0 mls/hr TITRATE IV 11/27/16 23:00 11/28/16 06:00 Fentanyl Citrate 50 mcg 50 mcg Q6HR PRN IV PUSH 11/28/16 07:00 Levofloxacin/ Dextrose 100 ml @ 100 mls/hr Q36H IV 11/28/16 10:00 11/28/16 11:19 Metronidazole 100 ml @ 100 mls/hr Q8H IV 11/28/16 09:00 11/28/16 11:20 (Sodium Bicarbonate 8.4% Inj/D5W 1000 ml Inj) 1,075 ml @ 100 mls/hr [id number] IV 11/28/16 14:00 Allergies Allergies Coded Allergies Codeine (Verified Allergy, Severe, 09/04/16) Demerol (Verified Allergy, Severe, 09/04/16) Iodine (Verified Allergy, Severe, hives, 09/04/16) Vitamin C (Verified Allergy, Severe, Rash, 09/04/16) Exam I&O / VS 11/27/16 11/27/16 11/28/16 15:00 23:00 07:00 Intake Total 1300 ml 1857 ml Output Total 350 ml 304 ml 553 ml Balance -350 ml 996 ml 1304 ml Intake IV Total 1300 ml 1857 ml Output Urine Total 350 ml 300 ml 550 ml Stool Total 4 ml 3 ml Vital Signs Date Time Temp Pulse Resp B/P Pulse Ox O2 Delivery O2 Flow Rate FiO2 11/28/16 12:05 99.8 130 20 113/57 95 11/28/16 09:57 98 Partial Rebreather 12.00 70 11/28/16 07:58 100.0 122 20 108/54 99 11/28/16 06:00 115 11/28/16 05:00 122 11/28/16 04:00 121 11/28/16 03:00 100.1 125 22 110/51 98 11/28/16 03:00 125 11/28/16 02:00 130 11/28/16 01:00 127 11/28/16 00:00 143 11/27/16 23:00 99.9 143 24 117/63 95 11/27/16 23:00 143 11/27/16 22:10 137 11/27/16 22:00 156 11/27/16 21:00 146 11/27/16 20:36 98 Partial Rebreather 10.00 11/27/16 20:00 143 11/27/16 19:00 152 11/27/16 19:00 100.1 152 24 118/60 96 11/27/16 15:28 143 11/27/16 15:28 99.1 143 23 100/50 98 Exam Comments lethargic but easy to arouse and follows commands CN 2-12 normal MOTOR 5/5 BUE and BLE Objective Radiology Results CT cervical spine--mild spondylosis. no acute change Micro and Labs Laboratory Tests Test 11/27/16 11/27/16 11/28/16 18:48 23:04 06:30 White Blood Count 7.3 11.5 Red Blood Count 3.64 3.53 Hemoglobin 10.4 10.1 9.8 Hematocrit 31.2 30.2 29.8 Mean Corpuscular Volume 85.7 84.5 Mean Corpuscular Hemoglobin 28.7 27.9 Mean Corpuscular Hemoglobin 33.5 33.0 Concent Red Cell Distribution Width 20.5 20.6 Platelet Count 150 150 Mean Platelet Volume 9.9 10.0 Neutrophils (%) (Auto) 88.5 Lymphocytes (%) (Auto) 3.4 Monocytes (%) (Auto) 8.0 Eosinophils (%) (Auto) 0.0 Basophils (%) (Auto) 0.1 Neutrophils # (Auto) 6.5 Lymphocytes # (Auto) 0.2 Monocytes # (Auto) 0.6 Eosinophils # (Auto) 0.0 Basophils # (Auto) 0.0 CBC Comment DIFF FINAL Differential Comment Sodium Level 152 152 Potassium Level 3.7 3.3 Chloride Level 113 113 Carbon Dioxide Level 19.1 21.6 Anion Gap 20 17 Blood Urea Nitrogen 140 139 Creatinine 6.09 5.85 Estimat Glomerular Filtration 7 7 Rate Random Glucose 77 78 Calcium Level 6.0 6.5 Protein Corrected Calcium 7.0 Magnesium Level 2.1 2.1 Total Protein 5.0 Phosphorus Level 6.4 Total Creatine Kinase 3471 Creatine Kinase MB 29.0 Creatine Kinase MB % 0.8 Albumin 1.7 Date/Time Procedure Status Source Growth 11/27/16 13:10 Stool Occult Blood (CELESTINE) - Final Complete Stool Stool HEMOCCULT POSITIVE 11/26/16 21:20 Aerobic Blood Culture - Preliminary Resulted Blood Peripheral NO GROWTH IN 2 DAYS 11/26/16 21:20 Anaerobic Blood Culture - Preliminary Resulted Blood Peripheral NO GROWTH IN 2 DAYS 11/26/16 17:50 Urine Culture - Final Complete Urine Clean Catch <10,000 CFU/ML GRAM POSITIVE DAWIT Porter Galaviz PhD Nov 28, 2016 13:56
--- NOTE | 2016-11-28 15:52 | EKG ---
Date Performed: 11/27/2016 Time Performed: 21:08:00 PTAGE: 71 years EKG: Probable sinus tachycardia. Extensive ST-T changes may be due to myocardial ischemia Abnorm al ECG PREVIOUS TRACING : 11/27/2016 02.20 Since previous tracing, no significant change noted DOCTOR: Ghanshyam Zamora Interpretating Date/Time 11/28/2016 15:50:56
[2016-11-28] MEDS: SODIUM BICARBONATE 8.4% INJ 75 MEQ in DEXTROSE 5% IN WATE 1000ML INJ 1,000 ML IV SCH ×2 (15:56)
[2016-11-28 18:02] LABS: AUTOMATED NEUTROPHIL # 11.3 TH/MM3 (1.8-7.7); BASOPHIL % 0.1 % (0.0-2.0); HEMATOCRIT 27.1 % (35.0-46.0); HEMO FLAGS DIFF FINAL; LYMPH % 4.1 % (9.0-44.0); LYMPHOCYTE # 0.5 TH/MM3 (1.0-4.8); MEAN CELL VOLUME 84.7 FL (80.0-100.0); MEAN CORPUSCULAR HEMOGLOBIN 28.1 PG (27.0-34.0); MEAN CORPUSCULAR HGB CONC 33.2 % (32.0-36.0); MONO % 3.4 % (0.0-8.0); NEUT % 92.4 % (16.0-70.0); PLATELET COUNT 134 TH/MM3 (150-450); WHITE BLOOD COUNT 12.2 TH/MM3 (4.0-11.0)
[2016-11-28] MEDS: RESP: ALBUTEROL 2.5 MG/IPRATROPIUM 0.5 MG NEB (PRN) INH (20:02)
[2016-11-28] MEDS ORDERED: PRAM1.5T PO (23:45)
[2016-11-28] MEDS ORDERED: LEVOTAB PO (23:49)
[2016-11-28] MEDS ORDERED: METO25TA3 PO (23:49)
[2016-11-28] MEDS ORDERED: CARD240C6 PO (23:49)
[2016-11-29] VITALS (8 sets, daily range): BP systolic 110–116; BP diastolic 51–65; PULSE 77–126; RESP 18–22; TEMP 98.1–100; O2SAT 96–98
[2016-11-29] MEDS: PANTOPRAZOLE INJ 80 MG in SODIUM CHLORIDE 0.9% INJ 100 ML IV SCH ×2 (01:00→13:03)
[2016-11-29] MEDS: metroNIDAZOLE 500 MG INJ 100 ML IV SCH ×3 (01:20→18:24)
[2016-11-29] MEDS: DILTIAZEM INJ 125 MG in SODIUM CHLORIDE 0.9% INJ 100 ML IV SCH ×2 (01:20→09:41)
[2016-11-29] MEDS: SODIUM BICARBONATE 8.4% INJ 75 MEQ in DEXTROSE 5% IN WATE 1000ML INJ 1,000 ML IV SCH ×2 (03:58)
[2016-11-29] MEDS: CHLORHEXIDINE GLUCONATE 2 % 1 PACK (2 CLOTHS) TOP SCH (04:00)
[2016-11-29 05:39] LABS: AUTOMATED NEUTROPHIL # 10.5 TH/MM3 (1.8-7.7); BASOPHIL % 0.3 % (0.0-2.0); HEMATOCRIT 28.3 % (35.0-46.0); HEMO FLAGS DIFF FINAL; LYMPH % 4.2 % (9.0-44.0); LYMPHOCYTE # 0.5 TH/MM3 (1.0-4.8); MEAN CELL VOLUME 84.1 FL (80.0-100.0); MEAN CORPUSCULAR HEMOGLOBIN 28.3 PG (27.0-34.0); MEAN CORPUSCULAR HGB CONC 33.6 % (32.0-36.0); MONO % 4.4 % (0.0-8.0); NEUT % 91.1 % (16.0-70.0); PLATELET COUNT 135 TH/MM3 (150-450); RED BLOOD COUNT 3.37 MIL/MM3 (4.00-5.30); RED CELL DISTRIBUTION WIDTH 21.1 % (11.6-17.2); WHITE BLOOD COUNT 11.6 TH/MM3 (4.0-11.0)
[2016-11-29 06:31] LABS: BICARBONATE 29.9 MEQ/L (21.0-32.0); CALCIUM-PROTEIN CORRECTED 7.6 MG/DL (8.5-10.1); PHENOBARBITAL 31.5 MCG/ML (15.0-40.0); POTASSIUM 3.5 MEQ/L (3.5-5.1); TOTAL BILIRUBIN ADULT 0.3 MG/DL (0.2-1.0)
[2016-11-29 07:10] LABS: CKMB 5.5 NG/ML (0.5-3.6)
--- NOTE | 2016-11-29 07:21 | MB ---
cc: ASHLEY JUNIOR M.D. DATE OF CONSULTATION 11/28/2016 DATE OF [address] Marychuy Payan REASON FOR REFERRAL Possible GI bleed. HISTORY An unfortunate 71-year-old old lady who was found down for unspecified time. Apparently, according to her neighbors, she did not come out of her house for four days. They called the police and they found her down and hypothermic with acute mental status changes. The patient was very acidotic and she was intubated. Apparently the patient had some black stool, questionable GI bleed. Unable to obtain history. No history of GI bleed according to the caregiver that she knows of. PAST MEDICAL HISTORY: Significant for - 1. Atrial fibrillation. 2. Seizure disorder. 3. Coronary artery disease. 4. CABG. 5. Cholecystectomy. MEDICATIONS Reviewed in the chart. ALLERGIES CODEINE. IODINE. VITAMIN C. DEMEROL. REVIEW OF SYSTEMS Unobtainable. FAMILY HISTORY Unobtainable. PHYSICAL EXAMINATION General: The patient is like there is not very responsive on V mash. HEENT: Pupils round, reactive to light. Neck: Supple. Chest: Clear to auscultation and precaution. Cardiac: Tachycardic but regular. Abdomen: Soft, nondistended, nontender. Extremities: No edema, clubbing or cyanosis. Neurologically: She is not awake, arousable but unable to perform neurological exam as far as alert and orientation. LABORATORY DATA White count 12.2, hemoglobin 9.0 down from 11.4, platelets 134. INR 1.0. Chemistry: Creatinine kinase 3471. Creatinine 5.85. AST 219, ALT 71, total bilirubin 0.70. ASSESSMENT AND PLAN A 71-year-old lady who was found down in her house, questionable etiology - could be seizure, could be alcohol-related. She had some dark stool, questionable GI bleed. The patient was not stable enough to have an endoscopy. We will monitor her hemoglobin. If it remains stable, we will wait. If it comes down, then we will need to give her packed red blood cells and do an emergent endoscopy. Meanwhile we will continue supportive care. We will continue proton pump inhibitor and we will follow up with you. The patient's situation is critical at this time. MD TOMER Fuller/SSB /11:57 PM /7:00 AM
--- NOTE | 2016-11-29 07:39 | RADRPT ---
EXAM DATE/TIME: 11/29/2016 07:12 [facility] COMPARISON: CHEST SINGLE AP, November 28, 2016, 3:30. INDICATIONS : Respiratory failure, short of breath MEDICAL HISTORY : None. SURGICAL HISTORY : CABG. ENCOUNTER: Subsequent ACUITY: 4 - 6 days PAIN SCORE: Non-responsive. LOCATION: Bilateral chest FINDINGS: Portable AP view of the chest demonstrates a normal-sized cardiac silhouette in this patient post med denisse sternotomy and CABG. There is a stable left basilar pleural-parenchymal opacity and mild airspace opacity at the right lung base. No pneumothorax is visualized. Bones and soft tissues demonstrate no acute finding. There is a stable ovoid ossification adjacent to the proximal right humerus measuring 2.4 cm. CONCLUSION: 1. Stable left basilar opacity likely representing pleural effusion with associated volume loss and/o r airspace consolidation. 2. New mild opacity at the right lung base could represent atelectasis, consolidation, and/or effusio n. Lei Michel MD on November 29, 2016 at 7:36 Board Certified Radiologist. This report was verified electronically.
[2016-11-29] MEDS: DOCUSATE SODIUM 100 MG/10 ML UDC G-TUBE SCH ×2 (08:00→21:18)
[2016-11-29] MEDS: levETIRAcetam INJ 500 MG in SODIUM CHLORIDE 0.9% INJ 100 ML IV SCH ×2 (09:25→21:18)
[2016-11-29] MEDS: SODIUM CHLORIDE 0.9% FLUSH 5 ML FLUSH IV FLUSH SCH ×2 (09:26→21:00)
--- NOTE | 2016-11-29 11:08 | HHI.NPPN ---
Subjective History of Present Illness The patient is a 71 yo [place] female who was brought in yesterday evening after being found down at her home for an unknown amount of time. As per records as the patient is very lethargic and not able to provide any information, her neighbor became concerned when they hadn't seen her for some time and called for a welfare check. EMS found her down with AMS and hypothermic. On arrival, her was found to be in renal failure and profoundly acidotic. She was given 4L of NS bolus as well as 2 amps of bicarb. She has been transferred to the ICU for closer monitoring. We were consulted for evaluation of potential need for dialysis. SCr on arrival 8.80 that has improved to 6.54 after IV fluids Na was 142 and is now 153 K+ was 4.9 now 3.1 CO2 was 8.3 now 12 (HCO3 per ABG 6 on admission and improved to 11 at consult) We have only 2 other SCr levels for review from previous admissions: 1.30 in 2009 and 0.73 in 2006 Interval History The patient is more alert today. [id number] present. (Agatha Cavazos) Objective Data Data 11/28/16 11/29/16 19:00 07:00 Intake Total 2023 ml 1670 ml Output Total 600 ml 602 ml Balance 1423 ml 1068 ml Intake Oral 50 ml IV Total 2023 ml 1620 ml Output Urine Total 600 ml 600 ml Stool Total 2 ml Vital Signs Date Time Temp Pulse Resp B/P Pulse Ox O2 Delivery O2 Flow Rate FiO2 11/29/16 07:20 98 Partial Rebreather 12.00 11/29/16 07:00 96 Partial Non-Rebreather 10.00 11/29/16 07:00 100.0 126 18 116/65 97 11/29/16 07:00 126 11/29/16 03:00 96 Partial Non-Rebreather 10.00 11/29/16 03:00 99.9 113 22 114/56 96 11/29/16 03:00 113 11/29/16 02:35 22 11/28/16 23:00 99.8 116 18 106/56 97 11/28/16 23:00 116 11/28/16 23:00 97 Partial Non-Rebreather 10.00 11/28/16 20:02 91 Venturi Mask 7.00 50 11/28/16 19:00 100.1 122 22 120/60 89 11/28/16 19:00 89 Venturi Mask 6.00 50 11/28/16 19:00 122 11/28/16 16:00 99.3 140 18 108/57 92 11/28/16 16:00 92 Venturi Mask 6.00 50 11/28/16 15:00 134 11/28/16 12:05 99.8 130 20 113/57 95 11/28/16 12:00 131 11/28/16 12:00 95 Partial Non-Rebreather 10.00 (Agatha Cavazos) -: 11/29/16 0519 11/29/16 0519 Medication Review Current Medications Medications (Trade) Dose Ordered Sig/Renea Route Start Time Stop Time Status Last Admin (NS Flush) 2 ml UNSCH PRN IV FLUSH 11/26/16 19:15 (NS Flush) 2 ml BID IV FLUSH 11/26/16 21:00 11/29/16 09:26 (Zofran Inj) 4 mg Q6H PRN IV 11/26/16 19:15 (Colace Liq) 100 mg Q12H G-TUBE 11/26/16 20:00 11/28/16 21:07 (Dulcolax Supp) 10 mg DAILY PRN RECTAL 11/26/16 19:15 Miscellaneous Information 1 Q361D XX 11/26/16 19:15 (Chlorhexidine 2% Cloth) 3 pack Taper DAILY@04 TOP 11/27/16 04:00 11/23/17 03:59 11/28/16 04:00 Chlorhexidine Gluconate 3 pack 3 pack UNSCH PRN TOP 11/26/16 19:15 (KCl 20 Meq Premix Inj) 100 ml @ 50 mls/hr Q2H PRN IV 11/27/16 16:45 Phenobarbital Sodium 65 mg 65 mg BID IV 11/27/16 21:00 11/29/16 09:25 (Keppra Inj/NS Inj) 105 ml @ 420 mls/hr Q12HR IV 11/27/16 21:00 11/29/16 09:25 Lorazepam 1 mg 1 mg Q4H PRN IV PUSH 11/27/16 17:15 Pantoprazole Sodium 80 mg/ Sodium Chloride 100 ml @ 10 mls/hr Q10H IV 11/27/16 19:00 11/29/16 01:00 (Cardizem Inj/NS Inj) 125 ml @ 0 mls/hr TITRATE IV 11/27/16 23:00 11/29/16 09:41 Fentanyl Citrate 50 mcg 50 mcg Q6HR PRN IV PUSH 11/28/16 07:00 11/29/16 01:35 Levofloxacin/ Dextrose 100 ml @ 100 mls/hr Q36H IV 11/28/16 10:00 11/28/16 11:19 Metronidazole 100 ml @ 100 mls/hr Q8H IV 11/28/16 09:00 11/29/16 09:25 (Sodium Bicarbonate 8.4% Inj/D5W 1000 ml Inj) 1,075 ml @ 100 mls/hr [id number] IV 11/28/16 14:00 11/29/16 03:58 (Lopressor) 25 mg Q12HR PO 11/29/16 11:00 (Agatha Cavazos) Physical Exam General Appearance: Comfortable (Agatha Cavazos) Pulmonary Resp Exam: Clear Bilaterally, Breath Sounds Equal (Agatha Cavazos) Cardiology CV Exam: Tachycardia (Agatha Cavazos) Gastrointestinal/Abdomen GI Exam: Soft, Non-Tender (Agatha Cavazos) Integumentary Skin Exam: Dry (Agatha Cavazos) Extremeties Extremities Exam: Trace Edema Extremeties Remarks bilat hands (Agatha Cavazos) Neurologic Neuro Remarks Awake, but drowsy (Agatha Cvaazos) Assessment/Plan Problem List: (1) Renal failure Plan: Acute renal failure appears to be from rhabdomyolysis with severe dehydration. It is not certain if there has been any ingestion of nephrotoxic medications at home. Her baseline SCr is not known. D/C bicarb Continue on D5w Monitor Na level as she is still hypernatremic indicating a free water deficit UOP minimal, but renal functions improving. We will monitor closely. Medications should be adjusted for the patient's renal dysfunction. Avoid gadolinium. (2) Rhabdomyolysis Plan: As above. Mention of potential syncopal events by [id number]. Echo pending (3) Dehydration, severe Plan: IVF as ordered (4) Anemia Plan: FOBT positive. GI consultation has been placed Plan The exam, history, and the medical decision-making described in the above note were completed with the assistance of the PA-C. I reviewed and agree with the findings presented.. (Agatha Cavazos) Plan The exam, history, and the medical decision-making described in the above note were completed with the assistance of the PA-C. I reviewed and agree with the findings presented. I attest that I had a [id number] encounter with the patient on the same day, and personally performed and documented my assessment and findings in the medical record. (Luda Kirby MD) Problem Qualifiers (1) Rhabdomyolysis: Qualified Code: T79.6XXA - Traumatic rhabdomyolysis, initial encounter Agatha Cavazos Nov 29, 2016 11:08 Luda Kirby MD Nov 29, 2016 11:16
--- NOTE | 2016-11-29 11:19 | MB ---
cc: MANJIT BRAGA M.D. DATE OF CONSULTATION: 11/29/2016 REASON FOR CONSULTATION Evaluation of tachycardia. HISTORY OF PRESENT ILLNESS Susan Qiu is a 71-year-old woman well-known to me. She had coronary artery bypass grafting June 23, 1999. She had left internal mammary graft to the LAD and then vein grafts to the circumflex marginal branch and to the right coronary artery. Her last cath was February 2007 and all of her grafts were patent. I last saw her in my office May 28. She was falling a lot, she had developed severe kyphosis, she was getting physical therapy. Her primary care physician is Dr. Estrella Betancourt. Apparently the patient was found with altered mental status at home on the floor and had evidence of rhabdomyolysis. The amount of time she spent on the floor is unclear. She has been found to be in renal failure. She has had persistent sinus tachycardia and she has been placed on a Cardizem drip. She just had a swallow eval that she just passed. She has not been on her beta-juaquin. The patient is severely lethargic. She tries to mouth some words but I cannot understand her, she is trying to write some notes but I cannot understand her notes. PAST MEDICAL HISTORY Past medical history includes: 1. Previous anemia. 2. Breast cancer in 2009 with chemo and radiation. 3. Coronary artery disease with bypass surgery in 1998. 4. Degenerative joint disease. 5. Kyphosis. 6. Hyperlipidemia. 7. Hypertension. 8. Hypothyroidism. 9. Past iron-deficiency. 10. Restless leg syndrome. 11. She had seizures when she was younger but has not had any that I know of as an adult. 12. She has had longstanding intermittent sinus tachycardia. PAST SURGICAL HISTORY 1. Right breast biopsy. 2. Previous cath. 3. Previous bypass surgery. 4. Cholecystectomy. 5. Hysterectomy. 6. Tonsillectomy. ALLERGIES CODEINE, DEMEROL, IODINE AND PLAVIX. TRANSFUSIONS She has had a total of 10 transfusions in the past. MEDICATIONS Medications that I knew that she was on: 1. 81 mg aspirin three times a week. 2. Diltiazem 120 mg daily. 3. Metoprolol 50 mg p.o. b.i.d. 4. Levofloxacin 75 mcg daily. 5. Atorvastatin 80 mg daily along with 6. Pramipexole. 7. Primidone. 8. Levocetirizine. 9. Calcium. FAMILY HISTORY Family history is positive for CHF in mother, coronary artery disease, grandmother lung cancer, myocardial infarction. SOCIAL HISTORY She smoked many years ago. REVIEW OF SYSTEMS Review of systems not obtainable. PHYSICAL EXAMINATION GENERAL: Physical exam reveals a woman who appears older than her stated age. She is actually sitting up in bed. She was able to try to write a few things and was able to swallow a little bit of food while I was at the bedside. She looks like she has lost weight from when I seen her last. HEENT: Exam is unremarkable. NECK: She is in a cervical collar, I could not examine her neck at this time. CHEST: Clear to auscultation. CARDIAC: S1-S2, regular rate and rhythm. There is a 1-2/6 systolic ejection murmur. ABDOMEN: Abdomen is soft. EXTREMITIES: Reveal good distal pulses. No clubbing, cyanosis or edema. EKG Has shown a marked sinus tachycardia with diffuse ST-T wave changes. The ST-T wave changes are much more prominent than what she has demonstrated previously. LABORATORY DATA Shows a hematocrit of 28.3, BUN is currently 136 with a creatinine of 5.53. CPK when she came in was 5524 with 2.2% MB fraction, albumin is low at 1.5. IMAGING STUDIES Chest x-ray shows stable left basilar opacity and slight opacity at the right base. IMPRESSION A markedly abnormal EKG with sinus tachycardia, no clear evidence of WI. She denied having any chest pain currently. She is in profound renal failure, currently on IV Cardizem to try to control her rate. I am going to go ahead and add metoprolol 25 mg p.o. b.i.d. to help slow her rate down. She has already had an echo and ejection fraction was about 45% with very minimal or mild aortic stenosis. She had similar findings with her valve with more of a sclerotic type valve on her old echo. Overall it is not clear to me what has caused the sudden event that brought her to the hospital. I do not think this represents an acute WI but the EKG findings are worrisome. PLAN I am going to go ahead and restart metoprolol 25 mg p.o. b.i.d. I will follow with you. Further therapy to be determined. MD TATIANA Humphrey/PABLOL /10:36 AM /10:53 AM
[2016-11-29] MEDS: METOPROLOL TARTRATE 25 MG TAB PO SCH ×2 (12:54→21:18)
[2016-11-29] MEDS: DEXTROSE 5% IN WATE 1000ML INJ 1,000 ML IV SCH (13:03)
--- NOTE | 2016-11-29 13:09 | HHI.GIFU ---
Subjective Remarks Resting in bed with partial rebreather on. No GI symptoms-n/v/pain. Has not had a bowel movement today. C/O being tired and weak. (Katia Cortes ) Objective Vitals I&O Vital Signs Date Time Temp Pulse Resp B/P Pulse Ox O2 Delivery O2 Flow Rate FiO2 11/29/16 07:20 98 Partial Rebreather 12.00 11/29/16 07:00 96 Partial Non-Rebreather 10.00 11/29/16 07:00 100.0 126 18 116/65 97 11/29/16 07:00 126 11/29/16 03:00 96 Partial Non-Rebreather 10.00 11/29/16 03:00 99.9 113 22 114/56 96 11/29/16 03:00 113 11/29/16 02:35 22 11/28/16 23:00 99.8 116 18 106/56 97 11/28/16 23:00 116 11/28/16 23:00 97 Partial Non-Rebreather 10.00 11/28/16 20:02 91 Venturi Mask 7.00 50 11/28/16 19:00 100.1 122 22 120/60 89 11/28/16 19:00 89 Venturi Mask 6.00 50 11/28/16 19:00 122 11/28/16 16:00 99.3 140 18 108/57 92 11/28/16 16:00 92 Venturi Mask 6.00 50 11/28/16 15:00 134 I/O 11/28/16 11/28/16 11/28/16 11/29/16 11/29/16 11/29/16 07:00 15:00 23:00 07:00 15:00 23:00 Intake Total 1857 ml 2023 ml 1670 ml Output Total 553 ml 600 ml 602 ml Balance 1304 ml 1423 ml 1068 ml Intake Oral 50 ml IV Total 1857 ml 2023 ml 1620 ml Output Urine Total 550 ml 600 ml 600 ml Stool Total 3 ml 2 ml Laboratory Laboratory Tests Test 11/28/16 11/29/16 17:53 05:19 White Blood Count 12.2 11.6 Red Blood Count 3.20 3.37 Hemoglobin 9.0 9.5 Hematocrit 27.1 28.3 Mean Corpuscular Volume 84.7 84.1 Mean Corpuscular Hemoglobin 28.1 28.3 Mean Corpuscular Hemoglobin 33.2 33.6 Concent Red Cell Distribution Width 21.0 21.1 Platelet Count 134 135 Mean Platelet Volume 9.4 9.8 Neutrophils (%) (Auto) 92.4 91.1 Lymphocytes (%) (Auto) 4.1 4.2 Monocytes (%) (Auto) 3.4 4.4 Eosinophils (%) (Auto) 0.0 0.0 Basophils (%) (Auto) 0.1 0.3 Neutrophils # (Auto) 11.3 10.5 Lymphocytes # (Auto) 0.5 0.5 Monocytes # (Auto) 0.4 0.5 Eosinophils # (Auto) 0.0 0.0 Basophils # (Auto) 0.0 0.0 CBC Comment DIFF FINAL DIFF FINAL Differential Comment Sodium Level 151 Potassium Level 3.5 Chloride Level 108 Carbon Dioxide Level 29.9 Anion Gap 13 Blood Urea Nitrogen 136 Creatinine 5.53 Estimat Glomerular Filtration 8 Rate Random Glucose 167 Calcium Level 6.6 Protein Corrected Calcium 7.6 Total Bilirubin 0.3 Aspartate Amino Transf 117 (AST/SGOT) Alanine Aminotransferase 47 (ALT/SGPT) Alkaline Phosphatase 86 Total Creatine Kinase 2304 Creatine Kinase MB 5.5 Creatine Kinase MB % 0.2 Total Protein 5.1 Albumin 1.5 Phenobarbital Level 31.5 Date/Time Procedure Status Source Growth 11/27/16 13:10 Stool Occult Blood (CELESTINE) - Final Complete Stool Stool HEMOCCULT POSITIVE 11/26/16 21:20 Aerobic Blood Culture - Preliminary Resulted Blood Peripheral NO GROWTH IN 3 DAYS 11/26/16 21:20 Anaerobic Blood Culture - Preliminary Resulted Blood Peripheral NO GROWTH IN 3 DAYS 11/26/16 17:50 Urine Culture - Final Complete Urine Clean Catch <10,000 CFU/ML GRAM POSITIVE DAWIT Imaging Last Impressions Chest X-Ray 11/29/16 0000 Signed Impressions: Service Date/Time: Tuesday, November 29, 2016 07:12 - CONCLUSION: 1. Stable left basilar opacity likely representing pleural effusion with associated volume loss and/or airspace consolidation. 2. New mild opacity at the right lung base could represent atelectasis, consolidation, and/or effusion. Lei Michel MD Renal Ultrasound 11/27/16 0000 Signed Impressions: Service Date/Time: Sunday, November 27, 2016 07:54 - CONCLUSION: Small echogenic kidneys without hydronephrosis. Trace pleural effusions. Trace ascites. Richard Bernal MD FACR Pelvis X-Ray 11/26/16 Signed Impressions: Service Date/Time: Saturday, November 26, 2016 17:18 - CONCLUSION: 1. No acute findings. Mild osteoarthritis of the hips. Vascular calcifications in the pelvis. Domenico Mar MD Head CT 11/26/16 Signed Impressions: Service Date/Time: Saturday, November 26, 2016 17:22 - CONCLUSION: No acute intracranial findings. Lei Dewitt MD Cervical Spine CT 11/26/16 Signed Impressions: Service Date/Time: Saturday, November 26, 2016 17:25 - CONCLUSION: 1. Moderate degenerative disc disease. No acute findings. Domenico Mar MD Physical Exam HEENT: Normocephalic; atraumatic; no jaundice. CHEST: Resp. shallow/even. Partial rebreather. CARDIAC: ST ABDOMEN: Soft, nondistended, nontender; no hepatosplenomegaly; bowel sounds are present in all four quadrants. EXTREMITIES: Generalized edema. 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 She has not had any further episodes. Her HH has remained stable at 9.5/28.3. She denies any GI symptoms. On protonix gtt. Not stable for any nonemergent endoscopic procedures- ARF, ST, Resp. Insufficiency on Partial rebreather. - Anemia. Stable. 9.5/28.3. - ARF secondary to dehydration and rhabdo. Renal following. Creat 5.53 - Multiple electrolyte abnormalities. Na+ 151, Calcium 6.6, PCC 7.6. - Rhabdo. IVF per [facility], CPK 3471---> 2304 - Resp. Insufficiency. Pt on partial rebreather, diminished bases. Per CCM - ST, Cardiology following, started on BB. Rate 120's. PLAN: - JUAN ANTONIO - Cont. Protonix gtt - Monitor HH - Transfuse as necessary - Supportive care - Pt is not stable at this time for GI procedures, consider once her condition improves or if there is obvious active bleeding - Pt seen and examined by Dr. Turcios and myself and this note is written on his behalf (Katia Cortes) Physician Comments Patient seen and examined Agree with above Continue with current supportive care Monitor labs No evidence of active bleeding (Sameer Turcios MD) Katia Cortes Nov 29, 2016 13:09 Sameer Turcios MD Nov 29, 2016 21:31
--- NOTE | 2016-11-29 16:25 | HHI.CCPN ---
Subjective Remarks/Hospital Course 11/26: Elderly female found down in her backyard her next door neighbor. It is unknown the amount of time the patient had been lying on the ground. Patient was noted to have an ulcer in the occipital region and the sacral region. The patient was noted to be hypothermic 86.0, with altered mental status. The patient was transferred to [facility] ED at which time imaging studies and laboratory studies were performed. The patient was noted to have a pH of 6.99, with a bicarbonate level of 6, and rhabdomyolysis with a CK level 4490. Patient received approximately 4 L of IV fluids, 2 A of sodium bicarbonate, nephrology was consulted, and rewarming was instituted. Critical care medicine was consulted for management and treatment. Upon my arrival to the ED, the patient was alert to name, and stated her name , slightly dysarthric, normotensive, and following motor commands. 11/27: Elderly female laying in bed, awake, follows some commands. Disoriented/ confused. Does not know she is in the hospital. Squeezes with both upper extremities. 11/28: Resting in bed on nonrebreather facemask. Heart rate remains 110-120s on Cardizem drip which was started last night. Had runs of SVT yesterday. Received 1 dose of Ativan as in last night. Had a temperature 100.5 this morning. Follows commands currently. Not in any acute distress. Was started on anticonvulsants by neurology as EEG showed sharp waves on 11/27. She has had some diarrhea and melena. No hypotension overnight. Hemoglobin around 10 this morning. 11/29: Resting in bed on partial rebreather facemask. On Cardizem drip. Heart rate 100s earlier. She was started on metoprolol after being evaluated by Dr. Justin Dominguez from cardiology who follows her as outpatient and with that her heart rate is down the 80s. She passed a swallow eval today. Remains on Protonix drip. She otherwise awake and alert and following commands. Objective Vital Signs Date Time Temp Pulse Resp B/P Pulse Ox O2 Delivery O2 Flow Rate FiO2 11/29/16 15:00 95 Partial Non-Rebreather 10.00 11/29/16 15:00 98.5 83 20 114/60 11/28/16 20:02 50 Intake and Output 1/811/28/16 11/29/16 08:00 16:00 00:00 Intake Total 1857 ml 2023 ml Output Total 553 ml 600 ml Balance 1304 ml 1423 ml Result Diagram: 11/29/16 0519 11/29/16 0519 Other Results Microbiology Date/Time Procedure Status Source Growth 11/26/16 17:50 Urine Culture - Final Complete Urine Clean Catch <10,000 CFU/ML GRAM POSITIVE DAWIT 11/27/16 13:10 Stool Occult Blood (CELESTINE) - Final Complete Stool Stool HEMOCCULT POSITIVE Imaging Last Impressions Renal Ultrasound 11/27/16 0000 Signed Impressions: Service Date/Time: Sunday, November 27, 2016 07:54 - CONCLUSION: Small echogenic kidneys without hydronephrosis. Trace pleural effusions. Trace ascites. Richard Bernal MD FACR Chest X-Ray 11/27/16 0000 Signed Impressions: Service Date/Time: Sunday, November 27, 2016 06:59 - CONCLUSION: Interval development of left lower lobe consolidation. Josesito Kumar MD Pelvis X-Ray 11/26/16 0000 Signed Impressions: Service Date/Time: Saturday, November 26, 2016 17:18 - CONCLUSION: 1. No acute findings. Mild osteoarthritis of the hips. Vascular calcifications in the pelvis. Domenico Mar MD Head CT 11/26/16 0000 Signed Impressions: Service Date/Time: Saturday, November 26, 2016 17:22 - CONCLUSION: No acute intracranial findings. Lei Dewitt MD Cervical Spine CT 11/26/16 0000 Signed Impressions: Service Date/Time: Saturday, November 26, 2016 17:25 - CONCLUSION: 1. Moderate degenerative disc disease. No acute findings. Domenico Mar MD Objective Remarks GENERAL: Elderly female appearing older than stated age. SKIN: Cool and dry. Noted ulcer occipital and sacral area HEAD: Normocephalic. EYES: PERRLA, 3mm brisk. No scleral icterus. No injection or drainage. ENT: No nasal bleeding or discharge. Mucous membranes dry. On partial rebreather NECK: Trachea midline. No JVD. CARDIOVASCULAR: Tachycardic, regular rhythm. RESPIRATORY: No accessory muscle use. Breath sounds equal bilaterally. Scattered rhonchi bilaterally. GASTROINTESTINAL: Abdomen soft, non-tender, nondistended. No guarding. MUSCULOSKELETAL: Extremities without clubbing, cyanosis, or edema. No obvious deformities. Pain with extension left lower extremity NEUROLOGICAL: Awake and alert, attempts to speak but her voice is very hoarse.. Has some weakness in the right foot.. Follows commands in all 4 extremities. Urinary Catheter: Yes Assessment to: Continue A/P Assessment and Plan This is a critically ill female, found unconscious from unknown limited of time , presenting with rhabdomyolysis, hypothermia, altered mental status, with a severe metabolic acidosis. The patient's medical records revealed the patient has a history of seizures, and cardiovascular disease. Plan by systems: Neurologic: Seizure disorder Altered mental status-secondary to hypothermia, toxic encephalopathy -GCS 14, patient is alert to name, dysarthria -EEG abnormal with sharp waves noted. Patient started on Keppra and phenobarbital by Dr. Galaviz from neurology. -CT head 11/26-no intracranial abnormality -CT cervical 11/26 moderate degenerative disc disease -C-spine cleared by Dr. Galaviz. Respiratory: -Maintain O2 sat greater than 92%. On partial rebreather O2, titrate down as tolerated -Bronchodilators every 4 hours when necessary for wheezing -Maintain head of bed elevation 30 patient is an aspiration risk -CXR1/6- no abnormalities Cardiovascular: Cardiovascular disease History of CABG x 3 vessels Hyperlipidemia H/O A. fib (per old records) Sinus tachycardia -HR 120's- Started on Cardizem drip on 11/27, will attempt titrating down. Started on by mouth metoprolol by Dr. Dominguez with significant improvement in heart rate. --Past medical records revealed patients on ASA 81 mg daily, will resume when tolerating by mouth. Renal: ALEXEY probably secondary to rhabdomyolysis/ dehydration Dehydration -Initial creatinine 8.8-volume resuscitation, 4 L of crystalloid NS, 1L LR, bicarbonate drip switched to D5W for hypernatremia -Barrios in place-has good urine output. Nephrology consult requested. -- Strict I/Os, monitor and replete electrolytes, follow BUN/creatinine FEN/GI: Metabolic acidosis Elevated transaminases Melena Diarrhea -Initial ABG 6.99/24/140/6/-23.6, received 2 amps of sodium bicarbonate and the ED -Repeat ABG 7.111/20.8/127/6.5/-21, 2 amps of sodium bicarbonate given, sodium bicarbonate infusion initiated -Started Protonix drip for melena. GI consulted, deferring EGD until improvement in clinical status. Cleared for by mouth diet -Sodium bicarbonate infusion 150 cc/hour Heme/ID: -F/u blood and urine cultures. Chest x-ray with left lower lobe infiltrate. Started empiric antibiotic coverage with Levaquin/Flagyl IV on 11/28 to cover for pneumonia. Suspect aspiration. -Lactate 0.2 Endocrine: Hypothyroidism -TSH borderline low -Patient home med includes Synthroid 100 mcgs/day which is on hold currently SKIN/MUSUCULOSKELETAL: Hypothermia Rhabdomyolysis - s/p warming. -Monitor core temp via Barrios -Glucose monitoring per ICU protocol -- SSI Prophylaxis: GI Prophylaxis Protonix gtt DVT Prophylaxis -- SCDs Lines: Peripheral IVs 2. Central line if indicated. Alonzo Escobar MD Nov 29, 2016 16:25
[2016-11-29] MEDS ORDERED: ASPI-110 PO (16:27)
[2016-11-29] MEDS ORDERED: ATOR1TAB18 PO (16:27)
[2016-11-29] MEDS ORDERED: PRIM250 PO (16:36)
[2016-11-29] MEDS ORDERED: LEVO150T7 PO (16:36)
[2016-11-29] MEDS ORDERED: MULT-6 PO (16:36)
[2016-11-29] MEDS: LEVOFLOXACIN 500 MG PREMIX INJ 100 ML IV SCH (21:18)
[2016-11-30] VITALS (12 sets, daily range): BP systolic 117–141; BP diastolic 60–75; PULSE 76–130; RESP 17–18; TEMP 98.1–98.8; O2SAT 94–96
[2016-11-30] MEDS: metroNIDAZOLE 500 MG INJ 100 ML IV SCH ×3 (01:56→17:00)
[2016-11-30] MEDS: PANTOPRAZOLE INJ 80 MG in SODIUM CHLORIDE 0.9% INJ 100 ML IV SCH ×2 (01:56→07:00)
[2016-11-30] MEDS: CHLORHEXIDINE GLUCONATE 2 % 1 PACK (2 CLOTHS) TOP SCH (04:00)
[2016-11-30 05:00] LABS: BICARBONATE 30.5 MEQ/L (21.0-32.0); POTASSIUM 3.4 MEQ/L (3.5-5.1)
[2016-11-30 05:38] LABS: CKMB 3.7 NG/ML (0.5-3.6)
[2016-11-30] MEDS: DOCUSATE SODIUM 100 MG/10 ML UDC G-TUBE SCH ×2 (08:00→20:44)
[2016-11-30] MEDS: METOPROLOL TARTRATE 25 MG TAB PO SCH ×2 (08:38→20:44)
[2016-11-30] MEDS: levETIRAcetam INJ 500 MG in SODIUM CHLORIDE 0.9% INJ 100 ML IV SCH ×2 (08:39→20:45)
[2016-11-30] MEDS: SODIUM CHLORIDE 0.9% FLUSH 5 ML FLUSH IV FLUSH SCH ×2 (08:39→20:44)
--- NOTE | 2016-11-30 09:44 | RADRPT ---
EXAM DATE/TIME: 11/30/2016 09:28 [facility] COMPARISON: CHEST SINGLE AP, November 29, 2016, 7:12. INDICATIONS : Respiratory failure. Pneumonia. RADIATION DOSE: 5.1 CTDIvol (mGy) MEDICAL HISTORY : Seizures. Carcinoma, breast. Cardiovascular disease SURGICAL HISTORY : Cholecystectomy. Triple bypass. ENCOUNTER: Initial ACUITY: 4 - 6 days PAIN SCALE: 4/10 LOCATION: Bilateral chest TECHNIQUE: Volumetric scanning of the chest was performed. Using automated exposure control and adjustment of t he mA and/or kV according to patient size, radiation dose was kept as low as reasonably achievable to obtain optimal diagnostic quality images. FINDINGS: LUNGS: There is respiratory motion artifact. Patchy airspace consolidation is present in the upper lobes carlita aterally. There is compressive atelectasis in the right lower lobe and atelectasis versus consolidati on of the entire left lower lobe. No pneumothorax is present. PLEURAE: There is a small right pleural effusion and there is trace left pleural fluid. MEDIASTINUM: The heart and great vessels demonstrate no acute abnormality. Coronary artery calcification is prese nt. There is no mediastinal or hilar lymphadenopathy. AXILLAE: Within normal limits. No lymphadenopathy. MUSCULOSKELETAL: There are degenerative changes of the thoracic spine. Prior median sternotomy has been performed. MISCELLANEOUS: There has been prior cholecystectomy. There is free fluid around the liver. CONCLUSION: 1. Patchy airspace consolidation in the upper lobes bilaterally. This could represent an infectious p rocess in the appropriate clinical setting. 2. There is volume loss versus consolidation of the entire left lower lobe. 3. Small right pleural effusion with compressive atelectasis and trace left pleural fluid. Lei Michel MD on November 30, 2016 at 9:38 Board Certified Radiologist. This report was verified electronically.
--- NOTE | 2016-11-30 10:26 | PD.CARD.PN ---
Subjective Subjective Remarks no complaints Objective Medications Current Medications Medications (Trade) Dose Ordered Sig/Renea Route Start Time Stop Time Status Last Admin (NS Flush) 2 ml UNSCH PRN IV FLUSH 11/26/16 19:15 (NS Flush) 2 ml BID IV FLUSH 11/26/16 21:00 11/30/16 08:39 (Zofran Inj) 4 mg Q6H PRN IV 11/26/16 19:15 (Colace Liq) 100 mg Q12H G-TUBE 11/26/16 20:00 11/29/16 21:18 (Dulcolax Supp) 10 mg DAILY PRN RECTAL 11/26/16 19:15 Miscellaneous Information 1 Q361D XX 11/26/16 19:15 (Chlorhexidine 2% Cloth) 3 pack Taper DAILY@04 TOP 11/27/16 04:00 11/23/17 03:59 11/30/16 04:00 Chlorhexidine Gluconate 3 pack 3 pack UNSCH PRN TOP 11/26/16 19:15 (KCl 20 Meq Premix Inj) 100 ml @ 50 mls/hr Q2H PRN IV 11/27/16 16:45 11/30/16 05:40 Phenobarbital Sodium 65 mg 65 mg BID IV 11/27/16 21:00 11/30/16 08:39 (Keppra Inj/NS Inj) 105 ml @ 420 mls/hr Q12HR IV 11/27/16 21:00 11/30/16 08:39 Lorazepam 1 mg 1 mg Q4H PRN IV PUSH 11/27/16 17:15 Pantoprazole Sodium 80 mg/ Sodium Chloride 100 ml @ 10 mls/hr Q10H IV 11/27/16 19:00 11/30/16 01:56 (Cardizem Inj/NS Inj) 125 ml @ 0 mls/hr TITRATE IV 11/27/16 23:00 11/29/16 09:41 Fentanyl Citrate 50 mcg 50 mcg Q6HR PRN IV PUSH 11/28/16 07:00 11/29/16 01:35 Levofloxacin/ Dextrose 100 ml @ 100 mls/hr Q36H IV 11/28/16 10:00 11/29/16 21:18 (Flagyl 500 Mg Inj) 100 ml @ 100 mls/hr Q8H IV 11/28/16 09:00 11/30/16 08:40 Metoprolol Tartrate 25 mg 25 mg Q12HR PO 11/29/16 11:00 11/30/16 08:38 (D5W 1000 ml Inj) 1,000 ml @ 42 mls/hr [id number] IV 11/29/16 11:04 11/29/16 13:03 Vital Signs / I&O Vital Signs Date Time Temp Pulse Resp B/P Pulse Ox O2 Delivery O2 Flow Rate FiO2 11/30/16 07:36 96 Venturi Mask 6.00 50 11/30/16 07:00 98.6 76 17 117/60 94 11/30/16 07:00 76 11/30/16 07:00 93 Nasal Cannula 4.00 11/30/16 03:00 95 Venturi Mask 11/30/16 03:00 98.8 78 18 141/73 94 11/30/16 03:00 85 11/29/16 23:00 77 11/29/16 23:00 95 Venturi Mask 11/29/16 23:00 99.0 77 18 116/64 97 11/29/16 19:00 98.1 91 20 114/51 98 11/29/16 19:00 90 11/29/16 19:00 95 Venturi Mask 11/29/16 17:00 97 Venturi Mask 6.00 50 11/29/16 15:00 95 Partial Non-Rebreather 10.00 11/29/16 15:00 98.5 83 20 114/60 98 11/29/16 15:00 83 11/29/16 11:00 95 Partial Non-Rebreather 10.00 11/29/16 11:00 105 11/29/16 11:00 99.9 105 18 110/64 98 I/O 11/29/16 11/29/16 11/29/16 11/30/16 11/30/16 11/30/16 07:00 15:00 23:00 07:00 15:00 23:00 Intake Total 1670 ml 2354 ml 1374 ml Output Total 602 ml 700 ml 750 ml Balance 1068 ml 1654 ml 624 ml Intake Oral 50 ml 1200 ml 480 ml IV Total 1620 ml 1154 ml 894 ml Output Urine Total 600 ml 700 ml 750 ml Stool Total 2 ml # Bowel Movements 1 1 Physical Exam Awake Chest clear anteriorly CV S!S2 RRR. SR to Stach on tele Laboratory Laboratory Tests Test 11/30/16 04:06 Sodium Level 148 MEQ/L Potassium Level 3.4 MEQ/L Chloride Level 108 MEQ/L Carbon Dioxide Level 30.5 MEQ/L Anion Gap 10 MEQ/L Blood Urea Nitrogen 121 MG/DL Creatinine 4.98 MG/DL Estimat Glomerular Filtration 9 ML/MIN Rate Random Glucose 125 MG/DL Calcium Level 6.7 MG/DL Phosphorus Level 4.0 MG/DL Total Creatine Kinase 1783 U/L Creatine Kinase MB 3.7 NG/ML Creatine Kinase MB % 0.2 % Albumin 1.4 GM/DL Imaging Last 48 hours Impressions Chest X-Ray 11/29/16 0000 Signed Impressions: Service Date/Time: Tuesday, November 29, 2016 07:12 - CONCLUSION: 1. Stable left basilar opacity likely representing pleural effusion with associated volume loss and/or airspace consolidation. 2. New mild opacity at the right lung base could represent atelectasis, consolidation, and/or effusion. Lei Michel MD Chest CT 11/29/16 0000 Signed Impressions: Service Date/Time: Wednesday, November 30, 2016 09:28 - CONCLUSION: 1. Patchy airspace consolidation in the upper lobes bilaterally. This could represent an infectious process in the appropriate clinical setting. 2. There is volume loss versus consolidation of the entire left lower lobe. 3. Small right pleural effusion with compressive atelectasis and trace left pleural fluid. Lei Michel MD Assessment and Plan Problem List: (1) CAD (coronary artery disease) Assessment and Plan: No angina (2) Sinus tachycardia Assessment and Plan: malnutrution contributing (3) Renal failure Assessment and Plan: BUN still > 100 Justin Dominguez MD Nov 30, 2016 10:26
--- NOTE | 2016-11-30 11:29 | HHI.CCPN ---
Subjective Remarks/Hospital Course 11/26: Elderly female found down in her backyard her next door neighbor. It is unknown the amount of time the patient had been lying on the ground. Patient was noted to have an ulcer in the occipital region and the sacral region. The patient was noted to be hypothermic 86.0, with altered mental status. The patient was transferred to [facility] ED at which time imaging studies and laboratory studies were performed. The patient was noted to have a pH of 6.99, with a bicarbonate level of 6, and rhabdomyolysis with a CK level 4490. Patient received approximately 4 L of IV fluids, 2 A of sodium bicarbonate, nephrology was consulted, and rewarming was instituted. Critical care medicine was consulted for management and treatment. Upon my arrival to the ED, the patient was alert to name, and stated her name , slightly dysarthric, normotensive, and following motor commands. 11/27: Elderly female laying in bed, awake, follows some commands. Disoriented/ confused. Does not know she is in the hospital. Squeezes with both upper extremities. 11/28: Resting in bed on nonrebreather facemask. Heart rate remains 110-120s on Cardizem drip which was started last night. Had runs of SVT yesterday. Received 1 dose of Ativan as in last night. Had a temperature 100.5 this morning. Follows commands currently. Not in any acute distress. Was started on anticonvulsants by neurology as EEG showed sharp waves on 11/27. She has had some diarrhea and melena. No hypotension overnight. Hemoglobin around 10 this morning. 11/29: Resting in bed on partial rebreather facemask. On Cardizem drip. Heart rate 100s earlier. She was started on metoprolol after being evaluated by Dr. Justin Dominguez from cardiology who follows her as outpatient and with that her heart rate is down the 80s. She passed a swallow eval today. Remains on Protonix drip. She otherwise awake and alert and following commands. 11/30: On 50% Ventimask today. Awake and alert, following commands. CT chest shows left lower lobe consolidation, right lower lobe atelectasis. Objective Vital Signs Date Time Temp Pulse Resp B/P Pulse Ox O2 Delivery O2 Flow Rate FiO2 11/30/16 07:36 96 Venturi Mask 6.00 50 11/30/16 07:00 98.6 76 17 117/60 Intake and Output 11/29/16 11/29/16 11/30/16 08:00 16:00 00:00 Intake Total 1670 ml 2354 ml Output Total 602 ml 700 ml Balance 1068 ml 1654 ml Result Diagram: 11/29/16 0519 11/30/16 0406 Other Results Microbiology Date/Time Procedure Status Source Growth 11/27/16 13:10 Stool Occult Blood (CELESTINE) - Final Complete Stool Stool HEMOCCULT POSITIVE Imaging Last Impressions Renal Ultrasound 11/27/16 0000 Signed Impressions: Service Date/Time: Sunday, November 27, 2016 07:54 - CONCLUSION: Small echogenic kidneys without hydronephrosis. Trace pleural effusions. Trace ascites. Richard Bernal MD FACR Chest X-Ray 11/27/16 0000 Signed Impressions: Service Date/Time: Sunday, November 27, 2016 06:59 - CONCLUSION: Interval development of left lower lobe consolidation. Josesito Kumar MD Pelvis X-Ray 11/26/16 0000 Signed Impressions: Service Date/Time: Saturday, November 26, 2016 17:18 - CONCLUSION: 1. No acute findings. Mild osteoarthritis of the hips. Vascular calcifications in the pelvis. Domenico Mar MD Head CT 11/26/16 0000 Signed Impressions: Service Date/Time: Saturday, November 26, 2016 17:22 - CONCLUSION: No acute intracranial findings. Lei Dewitt MD Cervical Spine CT 11/26/16 0000 Signed Impressions: Service Date/Time: Saturday, November 26, 2016 17:25 - CONCLUSION: 1. Moderate degenerative disc disease. No acute findings. Domenico Mar MD Objective Remarks GENERAL: Elderly female appearing older than stated age. SKIN: Cool and dry. Noted ulcer occipital and sacral area HEAD: Normocephalic. EYES: PERRLA, 3mm brisk. No scleral icterus. No injection or drainage. ENT: No nasal bleeding or discharge. Mucous membranes dry. On partial rebreather NECK: Trachea midline. No JVD. CARDIOVASCULAR: Tachycardic, regular rhythm. RESPIRATORY: No accessory muscle use. Breath sounds equal bilaterally, decreased at bases. Scattered rhonchi bilaterally. GASTROINTESTINAL: Abdomen soft, non-tender, nondistended. No guarding. MUSCULOSKELETAL: Extremities without clubbing, cyanosis, or edema. No obvious deformities. Pain with extension left lower extremity NEUROLOGICAL: Awake and alert, attempts to speak but her voice is very hoarse.. Has some weakness in the right foot.. Follows commands in all 4 extremities. Urinary Catheter: Yes Assessment to: Continue A/P Assessment and Plan This is an elderly female, found unconscious from unknown limited of time, presenting with rhabdomyolysis, hypothermia, altered mental status, with a severe metabolic acidosis. The patient's medical records revealed the patient has a history of seizures, and cardiovascular disease. Plan by systems: Neurologic: Seizure disorder Altered mental status-secondary to hypothermia, toxic encephalopathy -Awake and alert currently -EEG abnormal with sharp waves noted. Patient started on Keppra and phenobarbital by Dr. Galaviz from neurology. -CT head 11/26-no intracranial abnormality -CT cervical 11/26 moderate degenerative disc disease -C-spine cleared by Dr. Galaviz. Respiratory: -Maintain O2 sat greater than 92%. On 50% ventimask O2, titrate down as tolerated -Bronchodilators every 4 hours when necessary for wheezing -Maintain head of bed elevation 30 patient is an aspiration risk -CT chest with entire left lower lobe consolidation versus atelectasis, left lower lobe atelectasis. Cardiovascular: Cardiovascular disease History of CABG x 3 vessels Hyperlipidemia H/O A. fib (per old records) Sinus tachycardia -HR 120's- Started on Cardizem drip on 11/27, currently off . Started on by mouth metoprolol by Dr. Dominguez on 11/29 with significant improvement in heart rate. --Past medical records revealed patients on ASA 81 mg daily, will resume when OK with GI. Renal: ALEXEY probably secondary to rhabdomyolysis/ dehydration Dehydration -Initial creatinine 8.8-volume resuscitation, 4 L of crystalloid NS, 1L LR, bicarbonate drip switched to D5W for hypernatremia -Barrios in place-has good urine output. Nephrology following. CPK levels coming down. -- Strict I/Os, monitor and replete electrolytes, follow BUN/creatinine FEN/GI: Metabolic acidosis Elevated transaminases Melena Diarrhea -Initial ABG 6.99/24/140/6/-23.6, received 2 amps of sodium bicarbonate and the ED -Repeat ABG 7.111/20.8/127/6.5/-21, 2 amps of sodium bicarbonate given, sodium bicarbonate infusion initiated -Started Protonix drip for melena. GI consulted, deferring EGD until improvement in clinical status. Cleared for by mouth diet -Off bicarbonate drip currently as metabolic acidosis improved. Heme/ID: -F/u blood and urine cultures. Chest x-ray with left lower lobe infiltrate. Started empiric antibiotic coverage with Levaquin/Flagyl IV on 11/28 to cover for pneumonia. Suspect aspiration. CT chest on 11/30 with extensive consolidation involving left lower lobe with right lower lobe basilar atelactesis. Endocrine: Hypothyroidism -TSH borderline low -Patient home med includes Synthroid 100 mcgs/day which is on hold currently SKIN/MUSUCULOSKELETAL: Hypothermia Rhabdomyolysis - s/p warming. -Monitor core temp via Barrios -Glucose monitoring per ICU protocol -- SSI Prophylaxis: GI Prophylaxis Protonix gtt DVT Prophylaxis -- SCDs Lines: Peripheral IVs 2. Patient will be transferred out of ICU. Transfer to hospitalist service for further medical management. Critical care will be signing off, please reconsult if needed. Alonzo Escobar MD Nov 30, 2016 11:29
--- NOTE | 2016-11-30 12:43 | HHI.NPPN ---
Subjective History of Present Illness The patient is a 71 yo [place] female who was brought in after being found down at her home for an unknown amount of time. As per records as the patient is very lethargic and not able to provide any information, her neighbor became concerned when they hadn't seen her for some time and called for a welfare check. EMS found her down with AMS and hypothermic. On arrival, her was found to be in renal failure and profoundly acidotic. She was given 4L of NS bolus as well as 2 amps of bicarb. She has been transferred to the ICU for closer monitoring. We were consulted for evaluation of potential need for dialysis. SCr on arrival 8.80 that has improved to 6.54 after IV fluids Na was 142 and is now 153 K+ was 4.9 now 3.1 CO2 was 8.3 now 12 (HCO3 per ABG 6 on admission and improved to 11 at consult) We have only 2 other SCr levels for review from previous admissions: 1.30 in 2009 and 0.73 in 2006 Interval History Patient much more alert with no verbal complaints today. Niece by bedside. Objective Data Data 11/29/16 11/30/16 19:00 07:00 Intake Total 2354 ml 1374 ml Output Total 700 ml 750 ml Balance 1654 ml 624 ml Intake Oral 1200 ml 480 ml IV Total 1154 ml 894 ml Output Urine Total 700 ml 750 ml # Bowel Movements 1 1 Vital Signs Date Time Temp Pulse Resp B/P Pulse Ox O2 Delivery O2 Flow Rate FiO2 11/30/16 07:36 96 Venturi Mask 6.00 50 11/30/16 07:00 98.6 76 17 117/60 94 11/30/16 07:00 76 11/30/16 07:00 93 Nasal Cannula 4.00 11/30/16 03:00 95 Venturi Mask 11/30/16 03:00 98.8 78 18 141/73 94 11/30/16 03:00 85 11/29/16 23:00 77 11/29/16 23:00 95 Venturi Mask 11/29/16 23:00 99.0 77 18 116/64 97 11/29/16 19:00 98.1 91 20 114/51 98 11/29/16 19:00 90 11/29/16 19:00 95 Venturi Mask 11/29/16 17:00 97 Venturi Mask 6.00 50 11/29/16 15:00 95 Partial Non-Rebreather 10.00 11/29/16 15:00 98.5 83 20 114/60 98 11/29/16 15:00 83 -: 11/29/16 0519 11/30/16 0406 Physical Exam General Appearance: Comfortable Pulmonary Resp Exam: Clear Bilaterally, Breath Sounds Equal Cardiology CV Exam: Tachycardia Gastrointestinal/Abdomen GI Exam: Soft, Non-Tender Integumentary Skin Exam: Dry Extremeties Extremities Exam: Trace Edema Assessment/Plan Problem List: (1) Renal failure Plan: The creatinine level is improving albeit slowly however urine output is improving quite well. Continue current IV fluids to improve hyponatremia. Hopefully renal indices will continue to improve. Discussed patient's condition with her niece by the bedside. Her baseline SCr is not known. Medications should be adjusted for the patient's renal dysfunction. Avoid gadolinium. (2) Rhabdomyolysis Plan: As above. Mention of potential syncopal events by [id number]. Echo pending (3) Dehydration, severe Plan: IVF as ordered (4) Anemia Plan: FOBT positive. GI consultation has been placed Plan The exam, history, and the medical decision-making described in the above note were completed with the assistance of the PAMadhavi. I reviewed and agree with the findings presented. I attest that I had a [id number] encounter with the patient on the same day, and personally performed and documented my assessment and findings in the medical record. Problem Qualifiers (1) Rhabdomyolysis: Qualified Code: T79.6XXA - Traumatic rhabdomyolysis, initial encounter Luda Kirby MD Nov 30, 2016 12:43
[2016-11-30] MEDS: DEXTROSE 5% IN WATE 1000ML INJ 1,000 ML IV SCH (13:38)
--- NOTE | 2016-11-30 14:23 | HHI.GIFU ---
Subjective Remarks Resting in bed. Tolerating diet. No bleeding. No n/v/abdominal pain. Feeling better. (Katia Cortes) Objective Vitals I&O Vital Signs Date Time Temp Pulse Resp B/P Pulse Ox O2 Delivery O2 Flow Rate FiO2 11/30/16 11:00 96 Nasal Cannula 2.00 11/30/16 11:00 98.6 89 17 125/75 94 11/30/16 11:00 88 11/30/16 07:36 96 Venturi Mask 6.00 50 11/30/16 07:00 98.6 76 17 117/60 94 11/30/16 07:00 76 11/30/16 07:00 93 Nasal Cannula 4.00 11/30/16 03:00 95 Venturi Mask 11/30/16 03:00 98.8 78 18 141/73 94 11/30/16 03:00 85 11/29/16 23:00 77 11/29/16 23:00 95 Venturi Mask 11/29/16 23:00 99.0 77 18 116/64 97 11/29/16 19:00 98.1 91 20 114/51 98 11/29/16 19:00 90 11/29/16 19:00 95 Venturi Mask 11/29/16 17:00 97 Venturi Mask 6.00 50 11/29/16 15:00 95 Partial Non-Rebreather 10.00 11/29/16 15:00 98.5 83 20 114/60 98 11/29/16 15:00 83 I/O 11/29/16 11/29/16 11/29/16 11/30/16 11/30/16 11/30/16 07:00 15:00 23:00 07:00 15:00 23:00 Intake Total 1670 ml 2354 ml 1374 ml Output Total 602 ml 700 ml 750 ml Balance 1068 ml 1654 ml 624 ml Intake Oral 50 ml 1200 ml 480 ml IV Total 1620 ml 1154 ml 894 ml Output Urine Total 600 ml 700 ml 750 ml Stool Total 2 ml # Bowel Movements 1 1 Laboratory Laboratory Tests Test 11/30/16 04:06 Sodium Level 148 Potassium Level 3.4 Chloride Level 108 Carbon Dioxide Level 30.5 Anion Gap 10 Blood Urea Nitrogen 121 Creatinine 4.98 Estimat Glomerular Filtration 9 Rate Random Glucose 125 Calcium Level 6.7 Phosphorus Level 4.0 Total Creatine Kinase 1783 Creatine Kinase MB 3.7 Creatine Kinase MB % 0.2 Albumin 1.4 Date/Time Procedure Status Source Growth 11/27/16 13:10 Stool Occult Blood (CELESTINE) - Final Complete Stool Stool HEMOCCULT POSITIVE 11/26/16 21:20 Aerobic Blood Culture - Preliminary Resulted Blood Peripheral NO GROWTH IN 4 DAYS 11/26/16 21:20 Anaerobic Blood Culture - Preliminary Resulted Blood Peripheral NO GROWTH IN 4 DAYS 11/26/16 17:50 Urine Culture - Final Complete Urine Clean Catch <10,000 CFU/ML GRAM POSITIVE DAWIT Imaging Last Impressions Chest X-Ray 11/29/16 0000 Signed Impressions: Service Date/Time: Tuesday, November 29, 2016 07:12 - CONCLUSION: 1. Stable left basilar opacity likely representing pleural effusion with associated volume loss and/or airspace consolidation. 2. New mild opacity at the right lung base could represent atelectasis, consolidation, and/or effusion. Lei Michel MD Chest CT 11/29/16 0000 Signed Impressions: Service Date/Time: Wednesday, November 30, 2016 09:28 - CONCLUSION: 1. Patchy airspace consolidation in the upper lobes bilaterally. This could represent an infectious process in the appropriate clinical setting. 2. There is volume loss versus consolidation of the entire left lower lobe. 3. Small right pleural effusion with compressive atelectasis and trace left pleural fluid. Lei Michel MD Renal Ultrasound 11/27/16 0000 Signed Impressions: Service Date/Time: Sunday, November 27, 2016 07:54 - CONCLUSION: Small echogenic kidneys without hydronephrosis. Trace pleural effusions. Trace ascites. Richard Bernal MD FACR Pelvis X-Ray 11/26/16 0000 Signed Impressions: Service Date/Time: Saturday, November 26, 2016 17:18 - CONCLUSION: 1. No acute findings. Mild osteoarthritis of the hips. Vascular calcifications in the pelvis. Domenico Mar MD Head CT 11/26/16 0000 Signed Impressions: Service Date/Time: Saturday, November 26, 2016 17:22 - CONCLUSION: No acute intracranial findings. Lei Dewitt MD Cervical Spine CT 11/26/16 0000 Signed Impressions: Service Date/Time: Saturday, November 26, 2016 17:25 - CONCLUSION: 1. Moderate degenerative disc disease. No acute findings. Domenico Mar MD Physical Exam HEENT: Normocephalic; atraumatic; no jaundice. CHEST: Resp. shallow/even. N/C CARDIAC: ST ABDOMEN: Soft, nondistended, nontender; no hepatosplenomegaly; bowel sounds are present in all four quadrants. EXTREMITIES: Generalized edema. SKIN: Generalized pallor HAIR SPINNER: Lethargic, generalized weakness (Katia Cortes) Assessment and Plan Plan ASSESSMENT: - Questionable GIB with reported dark stools. She has not had any further episodes. Her HH has remained stable at 9.04/17.3. She denies any GI symptoms. On protonix gtt. Not stable for any nonemergent endoscopic procedures- ARF. Will switch protonix to BID dosing. - Anemia. Stable. .04/17.3. - ARF secondary to dehydration and rhabdo. Renal following. Creat down to 4.98 - Multiple electrolyte abnormalities. Per CCM. - Rhabdo. IVF per [facility], CPK 3471---> 2304---->1783 - Resp. Insufficiency. Improved. On N/C. Per CCM - ST, Cardiology following, started on BB. Improved. PLAN: - JUAN ANTONIO - D/C Protonix gtt - Protonix 40mg IV BID - Monitor HH - Transfuse as necessary - No signs of active bleeding, HH stable. No plan for EGD at this point unless active bleeding - GI will sign off, please reconsult again as needed - Pt seen and examined by Dr. Turcios and myself and this note is written on his behalf (Katia Cortes) Physician Comments Patient seen and examined Agree with above Continue with current supportive care Monitor labs We will sign off (Sameer Turcios MD) Katia Cortes Nov 30, 2016 14:23 Sameer Turcios MD Nov 30, 2016 20:34
[2016-11-30] MEDS ORDERED: PANTOPRAZOLE SODIUM 40 MG VIAL IV PUSH SCH (15:00)
[2016-12-01] VITALS (26 sets, daily range): BP systolic 111–171; BP diastolic 67–89; PULSE 75–144; RESP 12–18; TEMP 97.8–99.7; O2SAT 95–98
[2016-12-01] MEDS: metroNIDAZOLE 500 MG TAB PO SCH ×3 (01:13→17:29)
[2016-12-01] MEDS: CHLORHEXIDINE GLUCONATE 2 % 1 PACK (2 CLOTHS) TOP SCH (04:00)
[2016-12-01 06:19] LABS: AUTOMATED NEUTROPHIL # 7.7 TH/MM3 (1.8-7.7); BASOPHIL % 0.1 % (0.0-2.0); EOSINOPHIL % 0.4 % (0.0-4.0); HEMATOCRIT 26.1 % (35.0-46.0); HEMO FLAGS DIFF FINAL; LYMPH % 5.6 % (9.0-44.0); LYMPHOCYTE # 0.5 TH/MM3 (1.0-4.8); MEAN CELL VOLUME 86.6 FL (80.0-100.0); MEAN CORPUSCULAR HEMOGLOBIN 28.8 PG (27.0-34.0); MEAN CORPUSCULAR HGB CONC 33.2 % (32.0-36.0); MONO % 5.6 % (0.0-8.0); NEUT % 88.3 % (16.0-70.0); PLATELET COUNT 163 TH/MM3 (150-450); RED BLOOD COUNT 3.01 MIL/MM3 (4.00-5.30); WHITE BLOOD COUNT 8.7 TH/MM3 (4.0-11.0)
[2016-12-01 07:02] LABS: CKMB 1.6 NG/ML (0.5-3.6)
[2016-12-01] MEDS: DOCUSATE SODIUM 100 MG/10 ML UDC G-TUBE SCH ×3 (08:00→22:54)
--- NOTE | 2016-12-01 08:13 | PD.CARD.PN ---
Subjective Subjective Remarks Pt. did not verbally respond to me Objective Medications Current Medications Medications (Trade) Dose Ordered Sig/Renea Route Start Time Stop Time Status Last Admin (NS Flush) 2 ml UNSCH PRN IV FLUSH 11/26/16 19:15 (NS Flush) 2 ml BID IV FLUSH 11/26/16 21:00 11/30/16 20:44 (Zofran Inj) 4 mg Q6H PRN IV 11/26/16 19:15 (Colace Liq) 100 mg Q12H G-TUBE 11/26/16 20:00 11/30/16 20:44 (Dulcolax Supp) 10 mg DAILY PRN RECTAL 11/26/16 19:15 Miscellaneous Information 1 Q361D XX 11/26/16 19:15 (Chlorhexidine 2% Cloth) 3 pack Taper DAILY@04 TOP 11/27/16 04:00 11/23/17 03:59 12/01/16 04:00 Chlorhexidine Gluconate 3 pack 3 pack UNSCH PRN TOP 11/26/16 19:15 (KCl 20 Meq Premix Inj) 100 ml @ 50 mls/hr Q2H PRN IV 11/27/16 16:45 11/30/16 05:40 (Luminal Inj) 65 mg BID IV 11/27/16 21:00 11/30/16 20:45 Lorazepam 1 mg 1 mg Q4H PRN IV PUSH 11/27/16 17:15 (Cardizem Inj/NS Inj) 125 ml @ 0 mls/hr TITRATE IV 11/27/16 23:00 11/29/16 09:41 Fentanyl Citrate 50 mcg 50 mcg Q6HR PRN IV PUSH 11/28/16 07:00 11/29/16 01:35 (Levaquin 500 Mg Premix Inj) 100 ml @ 100 mls/hr Q36H IV 11/28/16 10:00 11/29/16 21:18 (Lopressor) 25 mg Q12HR PO 11/29/16 11:00 11/30/16 20:44 (Flagyl) 500 mg Q8H PO 12/01/16 01:00 12/01/16 01:13 (Protonix) 40 mg Q12HR PO 12/01/16 09:00 (Keppra) 500 mg BID PO 12/01/16 09:00 Vital Signs / I&O Vital Signs Date Time Temp Pulse Resp B/P Pulse Ox O2 Delivery O2 Flow Rate FiO2 12/01/16 07:00 99.7 80 18 131/89 96 12/01/16 06:00 77 12/01/16 05:00 81 12/01/16 04:00 87 12/01/16 03:00 98.1 75 18 130/69 96 12/01/16 03:00 75 12/01/16 03:00 96 Nasal Cannula 2.00 12/01/16 02:37 96 Nasal Cannula 1.50 12/01/16 02:00 89 12/01/16 01:00 84 12/01/16 00:00 98.2 98 18 123/72 95 12/01/16 00:00 78 11/30/16 23:00 93 11/30/16 23:00 95 Nasal Cannula 2.00 11/30/16 22:00 93 11/30/16 21:00 86 11/30/16 20:00 85 11/30/16 19:00 98.1 98 18 133/71 95 11/30/16 19:00 98 11/30/16 19:00 95 Nasal Cannula 2.00 11/30/16 18:00 90 11/30/16 17:00 130 11/30/16 15:00 98.4 98 17 126/66 94 11/30/16 15:00 98 11/30/16 15:00 96 Nasal Cannula 2.00 11/30/16 11:00 96 Nasal Cannula 2.00 11/30/16 11:00 98.6 89 17 125/75 94 11/30/16 11:00 88 I/O 11/30/16 11/30/16 11/30/16 12/01/16 12/01/16 12/01/16 07:00 15:00 23:00 07:00 15:00 23:00 Intake Total 1374 ml 1800 ml 712 ml Output Total 750 ml 800 ml 350 ml Balance 624 ml 1000 ml 362 ml Intake Oral 480 ml 900 ml 260 ml IV Total 894 ml 900 ml 452 ml Output Urine Total 750 ml 800 ml 350 ml # Voids 2 # Bowel Movements 1 6 2 Physical Exam Awake but lethargic. Last night got very confused and pulled out all of her lines/ Barrios Chest clear anteriorly CV S!S2 RRR. Currently appears calm but is in restraints Laboratory Laboratory Tests Test 12/01/16 05:30 White Blood Count 8.7 TH/MM3 Red Blood Count 3.01 MIL/MM3 Hemoglobin 8.7 GM/DL Hematocrit 26.1 % Mean Corpuscular Volume 86.6 FL Mean Corpuscular Hemoglobin 28.8 PG Mean Corpuscular Hemoglobin 33.2 % Concent Red Cell Distribution Width 22.0 % Platelet Count 163 TH/MM3 Mean Platelet Volume 9.4 FL Neutrophils (%) (Auto) 88.3 % Lymphocytes (%) (Auto) 5.6 % Monocytes (%) (Auto) 5.6 % Eosinophils (%) (Auto) 0.4 % Basophils (%) (Auto) 0.1 % Neutrophils # (Auto) 7.7 TH/MM3 Lymphocytes # (Auto) 0.5 TH/MM3 Monocytes # (Auto) 0.5 TH/MM3 Eosinophils # (Auto) 0.0 TH/MM3 Basophils # (Auto) 0.0 TH/MM3 CBC Comment DIFF FINAL Differential Comment Total Creatine Kinase 924 U/L Creatine Kinase MB 1.6 NG/ML Creatine Kinase MB % 0.2 % Assessment and Plan Problem List: (1) CAD (coronary artery disease) Assessment and Plan: no angina (2) Sinus tachycardia Assessment and Plan: improved with beta juaquin (3) Renal failure Assessment and Plan: uremic (4) Confusion Assessment and Plan: ? due to uremia, ? sundowning Assessment and Plan I will sign off/ see prn. Please call if cardiac questions. Justin Dominguez MD Dec 01, 2016 08:13
[2016-12-01] MEDS: METOPROLOL TARTRATE 25 MG TAB PO SCH ×2 (09:34→22:55)
[2016-12-01] MEDS: SODIUM CHLORIDE 0.9% FLUSH 5 ML FLUSH IV FLUSH SCH ×2 (09:35→21:00)
[2016-12-01] MEDS: LEVOFLOXACIN 500 MG PREMIX INJ 100 ML IV SCH (09:35)
[2016-12-01] MEDS: levETIRAcetam 500 MG TAB PO SCH ×2 (09:35→22:54)
[2016-12-01] MEDS: PANTOPRAZOLE SOD 40 MG DELAYED RELEASE TAB PO SCH ×2 (09:35→22:55)
[2016-12-01 11:03] LABS: BICARBONATE 28.5 MEQ/L (21.0-32.0); POTASSIUM 3.4 MEQ/L (3.5-5.1)
[2016-12-01 11:17] LABS: CALCIUM-PROTEIN CORRECTED 8.2 MG/DL (8.5-10.1)
[2016-12-01 11:47] LABS: BICARBONATE 28.6 MEQ/L (21.0-32.0); CALCIUM-PROTEIN CORRECTED 8.1 MG/DL (8.5-10.1); POTASSIUM 3.6 MEQ/L (3.5-5.1); TOTAL BILIRUBIN ADULT 0.3 MG/DL (0.2-1.0)
--- NOTE | 2016-12-01 12:00 | HHI.PR ---
Subjective Remarks Patient denies cp/sob. denies fevers/chills denies diarrhea As per RN had period of agitation last night where she took all her IV's out. Objective Vitals Vital Signs Date Time Temp Pulse Resp B/P Pulse Ox O2 Delivery O2 Flow Rate FiO2 12/01/16 11:42 97 Nasal Cannula 1.50 12/01/16 11:00 76 12/01/16 11:00 97 Nasal Cannula 1.50 12/01/16 11:00 98.0 85 18 129/71 97 12/01/16 10:00 125 12/01/16 09:00 81 12/01/16 08:00 111 12/01/16 07:00 97 Nasal Cannula 1.50 12/01/16 07:00 99.7 80 18 131/89 96 12/01/16 07:00 80 12/01/16 06:00 77 12/01/16 05:00 81 12/01/16 04:00 87 12/01/16 03:00 98.1 75 18 130/69 96 12/01/16 03:00 75 12/01/16 03:00 96 Nasal Cannula 2.00 12/01/16 02:37 96 Nasal Cannula 1.50 12/01/16 02:00 89 12/01/16 01:00 84 12/01/16 00:00 98.2 98 18 123/72 95 12/01/16 00:00 78 11/30/16 23:00 93 11/30/16 23:00 95 Nasal Cannula 2.00 11/30/16 22:00 93 11/30/16 21:00 86 11/30/16 20:00 85 11/30/16 19:00 98.1 98 18 133/71 95 11/30/16 19:00 98 11/30/16 19:00 95 Nasal Cannula 2.00 11/30/16 18:00 90 11/30/16 17:00 130 11/30/16 15:00 98.4 98 17 126/66 94 11/30/16 15:00 98 11/30/16 15:00 96 Nasal Cannula 2.00 I/O 11/30/16 11/30/16 11/30/16 12/01/16 12/01/16 12/01/16 07:00 15:00 23:00 07:00 15:00 23:00 Intake Total 1374 ml 1800 ml 712 ml Output Total 750 ml 800 ml 350 ml Balance 624 ml 1000 ml 362 ml Intake Oral 480 ml 900 ml 260 ml IV Total 894 ml 900 ml 452 ml Output Urine Total 750 ml 800 ml 350 ml # Voids 2 # Bowel Movements 1 6 2 Result Diagram: 12/01/16 0530 12/01/16 1023 Imaging Last Impressions Chest X-Ray 11/29/16 0000 Signed Impressions: Service Date/Time: Tuesday, November 29, 2016 07:12 - CONCLUSION: 1. Stable left basilar opacity likely representing pleural effusion with associated volume loss and/or airspace consolidation. 2. New mild opacity at the right lung base could represent atelectasis, consolidation, and/or effusion. Lei Michel MD Chest CT 11/29/16 0000 Signed Impressions: Service Date/Time: Wednesday, November 30, 2016 09:28 - CONCLUSION: 1. Patchy airspace consolidation in the upper lobes bilaterally. This could represent an infectious process in the appropriate clinical setting. 2. There is volume loss versus consolidation of the entire left lower lobe. 3. Small right pleural effusion with compressive atelectasis and trace left pleural fluid. Lei Michel MD Renal Ultrasound 11/27/16 0000 Signed Impressions: Service Date/Time: Sunday, November 27, 2016 07:54 - CONCLUSION: Small echogenic kidneys without hydronephrosis. Trace pleural effusions. Trace ascites. Richard Bernal MD FACR Pelvis X-Ray 11/26/16 0000 Signed Impressions: Service Date/Time: Saturday, November 26, 2016 17:18 - CONCLUSION: 1. No acute findings. Mild osteoarthritis of the hips. Vascular calcifications in the pelvis. Domenico Mar MD Head CT 11/26/16 0000 Signed Impressions: Service Date/Time: Saturday, November 26, 2016 17:22 - CONCLUSION: No acute intracranial findings. Lei Dewitt MD Cervical Spine CT 11/26/16 0000 Signed Impressions: Service Date/Time: Saturday, November 26, 2016 17:25 - CONCLUSION: 1. Moderate degenerative disc disease. No acute findings. Domenico Mar MD Objective Remarks GENERAL: Elderly female appearing older than stated age. SKIN: Cool and dry. Noted ulcer occipital and sacral area HEAD: Normocephalic. EYES: PERRLA, 3mm brisk. No scleral icterus. No injection or drainage. ENT: No nasal bleeding or discharge. Mucous membranes dry. On partial rebreather NECK: Trachea midline. No JVD. CARDIOVASCULAR: Tachycardic, regular rhythm. RESPIRATORY: No accessory muscle use. Breath sounds equal bilaterally, decreased at bases. Scattered rhonchi bilaterally. GASTROINTESTINAL: Abdomen soft, non-tender, nondistended. No guarding. MUSCULOSKELETAL: Extremities without clubbing, cyanosis, or edema. No obvious deformities. Pain with extension left lower extremity NEUROLOGICAL: Awake and alert, attempts to speak but her voice is very hoarse weakness noticed on the left upper extremity more than compared to the right. Left upper extremity muscle strength is 2/5 in right upper extremity is 4/5. Bilateral lower extremities are 2/5 in muscle strength. Sensation seems to be intact. Patient is awake and alert 2, person and place but not to time. Patient is able to follow commands. There is a questionable right facial droop. Medications and IVs Current Medications Medications (Trade) Dose Ordered Sig/Renea Route Start Time Stop Time Status Last Admin (NS Flush) 2 ml UNSCH PRN IV FLUSH 11/26/16 19:15 (NS Flush) 2 ml BID IV FLUSH 11/26/16 21:00 12/01/16 09:35 (Zofran Inj) 4 mg Q6H PRN IV 11/26/16 19:15 (Colace Liq) 100 mg Q12H G-TUBE 11/26/16 20:00 11/30/16 20:44 (Dulcolax Supp) 10 mg DAILY PRN RECTAL 11/26/16 19:15 Miscellaneous Information 1 Q361D XX 11/26/16 19:15 (Chlorhexidine 2% Cloth) 3 pack Taper DAILY@04 TOP 11/27/16 04:00 11/23/17 03:59 12/01/16 04:00 Chlorhexidine Gluconate 3 pack 3 pack UNSCH PRN TOP 11/26/16 19:15 (KCl 20 Meq Premix Inj) 100 ml @ 50 mls/hr Q2H PRN IV 11/27/16 16:45 11/30/16 05:40 (Luminal Inj) 65 mg BID IV 11/27/16 21:00 12/01/16 09:35 Lorazepam 1 mg 1 mg Q4H PRN IV PUSH 11/27/16 17:15 (Cardizem Inj/NS Inj) 125 ml @ 0 mls/hr TITRATE IV 11/27/16 23:00 11/29/16 09:41 Fentanyl Citrate 50 mcg 50 mcg Q6HR PRN IV PUSH 11/28/16 07:00 11/29/16 01:35 (Levaquin 500 Mg Premix Inj) 100 ml @ 100 mls/hr Q36H IV 11/28/16 10:00 12/01/16 09:35 (Lopressor) 25 mg Q12HR PO 11/29/16 11:00 12/01/16 09:34 (Flagyl) 500 mg Q8H PO 12/01/16 01:00 12/01/16 09:35 (Protonix) 40 mg Q12HR PO 12/01/16 09:00 12/01/16 09:35 (Keppra) 500 mg BID PO 12/01/16 09:00 12/01/16 09:35 A/P Problem List: (1) Seizure disorder ICD Code: G40.909 Status: Acute Plan: This is an elderly female, found unconscious from unknown limited of time , presenting with rhabdomyolysis, hypothermia, altered mental status, with a severe metabolic acidosis. The patient's medical records revealed the patient has a history of seizures, and cardiovascular disease. Patient found unconscious on the floor EEG with abnormal waves. Patient started on Keppra and Phenobarbital by Dr Galaviz from neurology. -CT head 11/26-no intracranial abnormality -CT cervical 11/26 moderate degenerative disc disease -C-spine cleared by Dr. Galaviz. -Check MRI brain - patient seems to have less strength on left upper extremity compared to right side. (2) Encephalopathy ICD Code: G93.40 Status: Acute Plan: Patient with episodes of agitation, requiring restraints. Continue to restraint as needed Now wake and alert x2 Will check MRI to r/o stroke - patient has more weakness on left side than right on exam, ?right facial droop. (3) Consolidation lung ICD Code: J18.1 Status: Acute Plan: cxr showed left lower lung infiltrate. Patient on IV antibiotics with IV Levaquin, Iv Flagyl Ct chest shows patchy consolidation of the upper lobes bilaterally, Volume loss consolidation in left lower lobe. -Maintain O2 sat greater than 92%. On 50% ventimask O2, titrate down as tolerated -Bronchodilators every 4 hours when necessary for wheezing -Maintain head of bed elevation 30 patient is an aspiration risk -CT chest with entire left lower lobe consolidation versus atelectasis, left lower lobe atelectasis. -----> Consult pulmonary. (4) Hyperlipidemia ICD Code: E78.5 Status: Acute Plan: Continue Statin. Patient on Atorvastatin 80 mg po daily. Check lipid profile (5) CAD (coronary artery disease) ICD Code: I25.10 Status: Acute Plan: Patient previously on aspirin 81 mg po daily at home. Patient's aspirin was held due to reported dark stools. Patient was on protonix drip now on Protonix BID orally. GI consulted - no evidence of GI bleed - Patient is hemmocult positive will repeat guaaic stool and if negative resume aspirin. (6) Sinus tachycardia ICD Code: R00.0 Status: Acute Plan: Patient seen by cardiology. sp Guillaume daneils after heart rate was in the 120's. Started on oral metoprolol by Dr Dominguez with significant improvement. Patient's heart rate today is 111, check EKG. Previous EKG's show sinus tachycardia with short ND interval. (7) ALEXEY (acute kidney injury) ICD Code: N17.9 Status: Acute Plan: Likely due to prerenal azotemia and azotemia as well as rhabdomyolysis. Creatinine trending down nephrology consulted Continue to monitor BUN and creatinine, history I's and O's. Patient has good urine output. (8) Rhabdomyolysis ICD Code: M62.82 Status: Acute Plan: Continue IV fluids. Traumatic from lying on the floor. fu total ck which has been trending down. (9) Metabolic acidosis ICD Code: E87.2 Status: Acute Plan: Anion gap metabolic acidosis now resolved after IV fluid administration. Lactic acid normal. (10) Transaminitis ICD Code: R74.0 Status: Acute Plan: Possibly due to rhabdomyolisis. ALT and AST elevated initially now trending down. AST elevated at 65 (11) Melena ICD Code: K92.1 Status: Acute Plan: Dark stools reported. GI consulted. Previously on Protonix drip, discontinued by GI since patient without evidence of GI bleed. Stool Hemoccult positive. recheck stool guaiac. (12) Dehydration ICD Code: E86.0 Status: Resolved Plan: Resolved after Iv fluid administration. (13) Diarrhea ICD Code: R19.7 Status: Resolved Plan: Patient with diarrhea previously. Now resolved as per documented RN report. I will continue to monitor. (14) Hypothyroidism ICD Code: E03.9 Status: Acute Plan: Continue levothyroxine at 150 mg by mouth daily. Patient initially with low TSH at a level of 0.3-9. Thyroxine lower at 2.1. Will check free T4. Patient likely with euthyroid sick syndrome. (15) Aspiration pneumonia ICD Code: J69.0 Status: Acute Plan: Continue IV antibiotics to cover for aspiration pneumonia. Chest imaging shows left lower lobe consolidation. Blood cultures negative 5. (16) Hypernatremia ICD Code: E87.0 Status: Acute Plan: This secondary to dehydration and poor oral intake. Patient currently on D5 water with sodium trending down, level now at 144. Continue to monitor BMP. (17) Hypocalcemia ICD Code: E83.51 Status: Acute Plan: Likely secondary to poor oral intake. Replace with IV calcium chloride and continue to monitor calcium. (18) Decubitus ulcer of sacral area ICD Code: L89.159 Status: Acute Plan: Consult wound care nurse. (19) Hypothermia ICD Code: T68.XXXA Status: Acute Plan: - s/p warming. -Continue to monitor temperature. (20) Sepsis ICD Code: A41.9 Status: Acute Plan: Suspected sepsis given the patient was tachycardic, hypothermic. Present on admission. Patient being treated with IV fluids, IV antibiotics and has a left lower lobe infiltrate which is possibly consistent with an aspiration pneumonia. (21) Weakness ICD Code: R53.1 Status: Acute Plan: ? stroke - Fu MRI brain. consult PT. Assessment and Plan Prophylaxis: GI Prophylaxis PPI DVT Prophylaxis -- SCDs No chemical prophylaxis given suspected GI bleed. Discharge Planning Continue to monitor in the medical floor. Problem Qualifiers (1) Hyperlipidemia: Qualified Code: E78.5 - Hyperlipidemia, unspecified hyperlipidemia type (2) CAD (coronary artery disease): Qualified Code: I25.10 - Coronary artery disease involving [place] coronary artery of [place] heart without angina pectoris (3) Rhabdomyolysis: Qualified Code: T79.6XXD - Traumatic rhabdomyolysis, subsequent encounter (4) Aspiration pneumonia: Qualified Code: J69.0 - Aspiration pneumonia of left lower lobe due to gastric secretions (5) Decubitus ulcer of sacral area: Qualified Code: L89.159 - Decubitus ulcer of sacral region, unspecified ulcer stage (6) Hypothermia: Qualified Code: T68.XXXA - Hypothermia, initial encounter (7) Sepsis: Qualified Code: A41.9 - Sepsis, due to unspecified organism Maulik Valladares MD Dec 01, 2016 12:00 Qualified Code: J69.0 - Aspiration pneumonia of left lower lobe due to gastric secretions Maulik Valladares MD Dec 01, 2016 12:00
--- NOTE | 2016-12-01 15:16 | HHI.NPPN ---
Subjective History of Present Illness The patient is a 71 yo [place] female who was brought in after being found down at her home for an unknown amount of time. As per records as the patient is very lethargic and not able to provide any information, her neighbor became concerned when they hadn't seen her for some time and called for a welfare check. EMS found her down with AMS and hypothermic. On arrival, her was found to be in renal failure and profoundly acidotic. She was given 4L of NS bolus as well as 2 amps of bicarb. She has been transferred to the ICU for closer monitoring. We were consulted for evaluation of potential need for dialysis. SCr on arrival 8.80 that has improved to 6.54 after IV fluids Na was 142 and is now 153 K+ was 4.9 now 3.1 CO2 was 8.3 now 12 (HCO3 per ABG 6 on admission and improved to 11 at consult) We have only 2 other SCr levels for review from previous admissions: 1.30 in 2009 and 0.73 in 2006 Interval History The patient has been downgraded from CVICU. She became confused last night and pulled out all of her IV lines and Barrios. She is in arm restraints today. Awake when I entered room, but does not speak. (Agatha Cavazos) Review of Systems General General Remarks Not able to obtain (Agatha Cavazos) Objective Data Data 11/30/16 12/01/16 19:00 07:00 Intake Total 1800 ml 712 ml Output Total 800 ml 350 ml Balance 1000 ml 362 ml Intake Oral 900 ml 260 ml IV Total 900 ml 452 ml Output Urine Total 800 ml 350 ml # Voids 2 # Bowel Movements 6 2 Vital Signs Date Time Temp Pulse Resp B/P Pulse Ox O2 Delivery O2 Flow Rate FiO2 12/01/16 14:00 111 12/01/16 13:00 79 12/01/16 12:00 81 12/01/16 11:42 97 Nasal Cannula 1.50 12/01/16 11:00 76 12/01/16 11:00 97 Nasal Cannula 1.50 12/01/16 11:00 98.0 85 18 129/71 97 12/01/16 10:00 125 12/01/16 09:00 81 12/01/16 08:00 111 12/01/16 07:00 97 Nasal Cannula 1.50 12/01/16 07:00 99.7 80 18 131/89 96 12/01/16 07:00 80 12/01/16 06:00 77 12/01/16 05:00 81 12/01/16 04:00 87 12/01/16 03:00 98.1 75 18 130/69 96 12/01/16 03:00 75 12/01/16 03:00 96 Nasal Cannula 2.00 12/01/16 02:37 96 Nasal Cannula 1.50 12/01/16 02:00 89 12/01/16 01:00 84 12/01/16 00:00 98.2 98 18 123/72 95 12/01/16 00:00 78 11/30/16 23:00 93 11/30/16 23:00 95 Nasal Cannula 2.00 11/30/16 22:00 93 11/30/16 21:00 86 11/30/16 20:00 85 11/30/16 19:00 98.1 98 18 133/71 95 11/30/16 19:00 98 11/30/16 19:00 95 Nasal Cannula 2.00 11/30/16 18:00 90 11/30/16 17:00 130 (Agatha Cavazos) -: 12/01/16 0530 12/01/16 1058 Imaging Last Impressions Chest X-Ray 11/29/16 0000 Signed Impressions: Service Date/Time: Tuesday, November 29, 2016 07:12 - CONCLUSION: 1. Stable left basilar opacity likely representing pleural effusion with associated volume loss and/or airspace consolidation. 2. New mild opacity at the right lung base could represent atelectasis, consolidation, and/or effusion. Lei Michel MD Chest CT 11/29/16 0000 Signed Impressions: Service Date/Time: Wednesday, November 30, 2016 09:28 - CONCLUSION: 1. Patchy airspace consolidation in the upper lobes bilaterally. This could represent an infectious process in the appropriate clinical setting. 2. There is volume loss versus consolidation of the entire left lower lobe. 3. Small right pleural effusion with compressive atelectasis and trace left pleural fluid. Lei Michel MD Renal Ultrasound 11/27/16 0000 Signed Impressions: Service Date/Time: Sunday, November 27, 2016 07:54 - CONCLUSION: Small echogenic kidneys without hydronephrosis. Trace pleural effusions. Trace ascites. Richard Bernal MD FACR Pelvis X-Ray 11/26/16 0000 Signed Impressions: Service Date/Time: Saturday, November 26, 2016 17:18 - CONCLUSION: 1. No acute findings. Mild osteoarthritis of the hips. Vascular calcifications in the pelvis. Domenico Mar MD Head CT 11/26/16 0000 Signed Impressions: Service Date/Time: Saturday, November 26, 2016 17:22 - CONCLUSION: No acute intracranial findings. Lei Dewitt MD Cervical Spine CT 11/26/16 0000 Signed Impressions: Service Date/Time: Saturday, November 26, 2016 17:25 - CONCLUSION: 1. Moderate degenerative disc disease. No acute findings. Domenico Mar MD Medication Review Current Medications Medications (Trade) Dose Ordered Sig/Renea Route Start Time Stop Time Status Last Admin (NS Flush) 2 ml UNSCH PRN IV FLUSH 11/26/16 19:15 (NS Flush) 2 ml BID IV FLUSH 11/26/16 21:00 12/01/16 09:35 (Zofran Inj) 4 mg Q6H PRN IV 11/26/16 19:15 (Colace Liq) 100 mg Q12H G-TUBE 11/26/16 20:00 11/30/16 20:44 (Dulcolax Supp) 10 mg DAILY PRN RECTAL 11/26/16 19:15 Miscellaneous Information 1 Q361D XX 11/26/16 19:15 (Chlorhexidine 2% Cloth) 3 pack Taper DAILY@04 TOP 11/27/16 04:00 11/23/17 03:59 12/01/16 04:00 Chlorhexidine Gluconate 3 pack 3 pack UNSCH PRN TOP 11/26/16 19:15 (KCl 20 Meq Premix Inj) 100 ml @ 50 mls/hr Q2H PRN IV 11/27/16 16:45 11/30/16 05:40 (Luminal Inj) 65 mg BID IV 11/27/16 21:00 12/01/16 09:35 Lorazepam 1 mg 1 mg Q4H PRN IV PUSH 11/27/16 17:15 (Cardizem Inj/NS Inj) 125 ml @ 0 mls/hr TITRATE IV 11/27/16 23:00 1/9/17 09:41 Fentanyl Citrate 50 mcg 50 mcg Q6HR PRN IV PUSH 11/28/16 07:00 11/29/16 01:35 (Levaquin 500 Mg Premix Inj) 100 ml @ 100 mls/hr Q36H IV 11/28/16 10:00 12/01/16 09:35 (Lopressor) 25 mg Q12HR PO 11/29/16 11:00 12/01/16 09:34 (Flagyl) 500 mg Q8H PO 12/01/16 01:00 12/01/16 09:35 (Protonix) 40 mg Q12HR PO 12/01/16 09:00 12/01/16 09:35 (Keppra) 500 mg BID PO 12/01/16 09:00 12/01/16 09:35 (Agatha Cavazos) Physical Exam General Appearance: No Acute Distress, Comfortable (Agatha Cavazos) Pulmonary Resp Exam: Clear Bilaterally, Breath Sounds Equal, Diminished Breath Sounds ( Agatha Cavazos) Cardiology CV Exam: Tachycardia (Agatha Cavazos) Gastrointestinal/Abdomen GI Exam: Soft, Non-Tender (Agatha Cavazos) Integumentary Skin Exam: Dry (Agatha Cavazos) Extremeties Extremities Exam: Trace Edema Extremeties Remarks bilat hands (Agatha Cavazos) Neurologic Neuro Remarks Awake, but does not speak (Agatha Cavazos) Assessment/Plan Problem List: (1) Renal failure Plan: The creatinine level is improving albeit slowly however urine output is improving quite well. Continue current IV fluids to improve hypernatremia. Hopefully renal indices will continue to improve. Her baseline SCr is not known. Medications should be adjusted for the patient's renal dysfunction. Avoid gadolinium. (2) Rhabdomyolysis Plan: Resolving (3) Dehydration, severe Plan: IVF as ordered (4) Anemia Plan: FOBT positive. Appreciate GI consult (Agatha Cavazos) Plan Physical examination, evaluation and assessment reviewed and discussed with my PA. I was fully involved in the evaluation and plan of care this patient. Doctor Kofi. (Luda iKrby MD) Problem Qualifiers (1) Rhabdomyolysis: Qualified Code: T79.6XXA - Traumatic rhabdomyolysis, initial encounter Agatha Cavazos Dec 01, 2016 15:16 Luda Kirby MD Dec 28, 2016 11:35
[2016-12-01] MEDS ORDERED: ASPIRIN EC 81 MG TABEC PO SCH (16:30)
[2016-12-01] MEDS ORDERED: CALCIUM CHLORIDE INJ 2 GM in SODIUM CHLORIDE 0.9% INJ 100 ML IV ONE (17:00)
[2016-12-01] MEDS: LEVOTHYROXINE SODIUM 150 MCG TAB PO SCH (17:29)
[2016-12-01] MEDS ORDERED: SODIUM CHLOR 0.9% 1000 ML INJ 1,000 ML IV ONE (17:30)
[2016-12-01] MEDS: RESP: ALBUTEROL 2.5 MG/IPRATROPIUM 0.5 MG NEB (SCH) NEB (19:35)
--- NOTE | 2016-12-01 20:41 | RADRPT ---
EXAM DATE/TIME: 12/01/2016 20:10 [facility] COMPARISON: CT BRAIN W/O CONTRAST, November 26, 2016, 17:22. INDICATIONS : Confusion. MEDICAL HISTORY : Renal failure, chronic. Carcinoma, breast. SURGICAL HISTORY : CABG Hysterectomy. Cholecystectomy. ENCOUNTER: Subsequent ACUITY: 4-6 days PAIN SCORE: Nonresponsive. LOCATION: cranial TECHNIQUE: Multiplanar, multisequence MRI of the brain was performed without contrast. FINDINGS: CEREBRUM: The ventricles are normal for age. No evidence of midline shift, mass lesion, hemorrhage or acute in farction. No extraaxial fluid collections are seen. The pituitary gland and suprasellar cistern are normal in configuration. WHITE MATTER: No significant signal abnormalities are seen in the white matter. POSTERIOR FOSSA: The cerebellum and brainstem are intact. The 4th ventricle is midline. The cerebellopontine angle is unremarkable. The cerebellar tonsils are normal in position. DIFFUSION IMAGING: No focal areas of restricted diffusion are seen. No evidence of acute infarction. EXTRACRANIAL: The visualized portions of the orbits are unremarkable. Scattered sinus disease. CONCLUSION: No acute intracranial abnormality. Scattered sinus disease. Sal Sneed MD on December 01, 2016 at 20:34 Board Certified Radiologist. This report was verified electronically.
[2016-12-01] MEDS: cefTRIAXone INJ 1,000 MG in SODIUM CHLORIDE 0.9% INJ 100 ML IV SCH (21:37)
[2016-12-01] MEDS: ATORVASTATIN 80 MG TAB PO SCH (22:54)
[2016-12-01] MEDS: methylPREDNISolone SOD SUCC 40 MG/1 ML VIAL IV SCH (22:55)
[2016-12-01] MEDS: SODIUM CHLORIDE 23.4% INJ 38.5 MEQ in WATER STERILE FOR INJ 1,000 ML IV SCH (22:57)
[2016-12-02] VITALS (27 sets, daily range): BP systolic 123–147; BP diastolic 66–86; PULSE 65–123; RESP 14–18; TEMP 97.9–98.9; O2SAT 94–98
[2016-12-02] MEDS: metroNIDAZOLE 500 MG TAB PO SCH ×3 (01:30→17:10)
[2016-12-02] MEDS: CHLORHEXIDINE GLUCONATE 2 % 1 PACK (2 CLOTHS) TOP SCH (04:00)
[2016-12-02] MEDS: SODIUM CHLORIDE 23.4% INJ 38.5 MEQ in WATER STERILE FOR INJ 1,000 ML IV SCH ×2 (04:06→14:12)
[2016-12-02] MEDS: methylPREDNISolone SOD SUCC 40 MG/1 ML VIAL IV SCH ×3 (06:30→23:34)
[2016-12-02] MEDS: LEVOTHYROXINE SODIUM 150 MCG TAB PO SCH (06:31)
--- NOTE | 2016-12-02 06:50 | MB ---
cc: EdilRUPA BUSBY DATE OF CONSULTATION 12/01/2016 DATE OF 1945 REASON FOR CONSULTATION Pulmonary infiltrates and hypoxia. HISTORY OF PRESENT ILLNESS This is a 71-year-old lady who initially was brought into the emergency room with altered mental status and an injury to her scalp and sacral area. The patient apparently was found lying on the ground and was hyperthermic with altered mental status and was brought to [facility] where she had a complete neurologic work up. Her initial blood gases showed a pH of 6.99 and bicarb of 6. The patient was in acute renal failure with rhabdomyolysis and the CK level was over 4000. After fluid resuscitation and bicarb drip, the patient was rewarmed and was in the intensive care unit and subsequently started to improve. Was dysarthric and still has some significant weakness of her arms and legs. The patient was sent for a chest x-ray which showed bibasilar pulmonary infiltrates and a CT scan also continues to show consolidation in the lower lung vidales, particularly the left lower lobe and also shows some pleural effusions. The patient is unable to provide any meaningful details of her history or complaints and seems quite lethargic still and breathing shallow, unable to use an incentive spirometer. PAST HISTORY Past history has included a history for: 1. Seizures 2. History for thyroid disorder 3. History for carcinoma of the breast in 2009 and there Is a questionable history of atrial fibrillation. 4. The patient had cholecystectomy. 5. Also has had coronary artery bypass grafting x3. HABITS Unknown ALLERGIES CODEINE, DEMEROL, AND IODINE. MEDICATIONS Includes: 1. Lipitor 80 mg a day 2. Mysoline 375 mg b.i.d. 3. Levothyroxine 100 mcg a day 4. Pramipexole 1.5 mg at bedtime 5. Aspirin one daily FAMILY HISTORY Unavailable REVIEW OF SYSTEMS The patient is unable to give any given any proper complaints. PHYSICAL EXAMINATION This is a thinly built elderly white female who is pale and dyspneic. She has edema of the extremities. VITAL SIGNS: Blood pressure 110/60, pulse is 120, respirations are 18, temperature 96, weight is not obtained. O2 sat 102 liters. HEENT: Head normocephalic. Pupils are reactive. Sclerae are injected. Tongue is dry. Throat clear. He has no inflammation. NECK: Supple. No bruits. Minimal venous distension. Trachea midline. No thyroid enlargement. CHEST: Equal movements with percussion note resonant and breath sounds diminished at the periphery with occasional wheezes bilaterally. HEART: Heart sounds are regular S1-S2. No murmur. No S3. ABDOMEN: Soft, protuberant. No masses or organomegaly or tenderness. EXTREMITIES: No clubbing. There is mild peripheral edema of all extremities with diminished pulses. Reflexes not well elicited. The patient however does move both her arms, squeezes weakly with her hands and the skin turgor is good. BREASTS: Exam is deferred. NEUROLOGIC: Cranial nerves not tested. IMPRESSION 1. Bibasilar pulmonary infiltrates with pneumonia and atelectasis left lower lobe. 2. Coronary artery disease and cardiomyopathy. 3. Tachycardic 4. Acute kidney injury with rhabdomyolysis 5. Metabolic acidosis 6. Encephalopathy PLAN The patient's CT scan does demonstrate evidence of bibasilar infiltrates and the patient has a poor respiratory effort. He needs to have IPPB with nebulized DuoNeb solution q.i.d. Also used incentive spirometer as much as possible. She will be continued on O2 at three liters nasal cannula. Continue with antibiotic therapy including Levaquin and Rocephin 1 gram IV was added daily. Chest x-ray to be done in the a.m. Solu-Medrol 40 mg IV q12h and the patient will be started on physiotherapy as soon as possible. BiPap could be used in case her blood gases deteriorate. Thank you, Dr. Hauser for this consultation. MD CONCHIS De Souza/JUDAH /11:21 PM /6:32 AM
[2016-12-02] MEDS: DOCUSATE SODIUM 100 MG/10 ML UDC G-TUBE SCH ×2 (08:00→23:34)
[2016-12-02 08:15] LABS: AUTOMATED NEUTROPHIL # 6.2 TH/MM3 (1.8-7.7); BASOPHIL % 0.1 % (0.0-2.0); EOSINOPHIL % 0.1 % (0.0-4.0); HEMATOCRIT 24.1 % (35.0-46.0); HEMO FLAGS DIFF FINAL; LYMPH % 5.1 % (9.0-44.0); LYMPHOCYTE # 0.4 TH/MM3 (1.0-4.8); MEAN CELL VOLUME 86.1 FL (80.0-100.0); MEAN CORPUSCULAR HGB CONC 32.6 % (32.0-36.0); MONO % 4.7 % (0.0-8.0); PLATELET COUNT 133 TH/MM3 (150-450); RED BLOOD COUNT 2.79 MIL/MM3 (4.00-5.30); RED CELL DISTRIBUTION WIDTH 21.5 % (11.6-17.2); WHITE BLOOD COUNT 6.9 TH/MM3 (4.0-11.0)
[2016-12-02] MEDS: levETIRAcetam 500 MG TAB PO SCH ×2 (08:20→23:24)
[2016-12-02] MEDS: PANTOPRAZOLE SOD 40 MG DELAYED RELEASE TAB PO SCH ×2 (08:20→23:26)
[2016-12-02] MEDS: METOPROLOL TARTRATE 25 MG TAB PO SCH ×2 (08:20→23:26)
[2016-12-02] MEDS: SODIUM CHLORIDE 0.9% FLUSH 5 ML FLUSH IV FLUSH SCH ×2 (08:21→21:00)
[2016-12-02 08:29] LABS: CRITICAL VALUE YES
[2016-12-02 08:32] LABS: CRITICAL VALUE YES
[2016-12-02 08:36] LABS: FREE T4 0.61 NG/DL (0.76-1.46); MAGNESIUM 1.4 MG/DL (1.5-2.5)
[2016-12-02 08:47] LABS: BICARBONATE 27.6 MEQ/L (21.0-32.0)
[2016-12-02] MEDS: RESP: ALBUTEROL 2.5 MG/IPRATROPIUM 0.5 MG NEB (SCH) NEB ×4 (08:57→21:31)
[2016-12-02 08:59] LABS: CKMB 1.6 NG/ML (0.5-3.6)
[2016-12-02] MEDS ORDERED: SODIUM CHLOR 0.9% 250 ML INJ 250 ML IV ONE (11:30)
[2016-12-02] MEDS ORDERED: diphenhydrAMINE HCL 25 MG CAP PO PRN (11:30)
[2016-12-02] MEDS ORDERED: ACETAMINOPHEN 325 MG TAB PO PRN (11:30)
--- NOTE | 2016-12-02 11:30 | PD.CONS ---
Consult Service Palliative Care . Consult Requested By Dr. Hauser . Primary Care Physician Dr. Estrella Betancourt . Reason for Consultation a. To assist with evaluation and management of symptoms including: pain, anxiety, dyspnea b. To assist medical decision maker(s) with: better understanding of current medical conditions; weighing benefits/burdens of medical treatment options; making medical treatment decisions. . HPI History of Present Illness Ms. Qiu is a 71 year old female patient who presented to [facility] via EMS on 11/26/16 after being found down in her backyard by a neighbor. The length of time the patient had be lying on the ground was unknown. Upon arrival the patient was hypothermic ( 89.9 rectal) with altered mental status. She was unable to provide any history or ROS. Patient was noted to have an ulcer in the occipital region and the sacral region. PMH includes hypothyroidism, h/o seizures in childhood, CAD s/p triple bypass, breast Ca in 2009, degenerative joint disease, hyperlipidemia, HTN, restless leg syndrome, and arrhythmias. Additional diagnostic finding while in the ED: * Vital signs: Pulse 65, respirations 12, BP 129/63, oxygen saturation 95% on 2 L via nasal cannula, rectal temperature 86.9. * WBC: 11.2, hemoglobin 13.9, hematocrit 43.8, platelets 235, neutrophils 92.3% * Sodium: 42, potassium 5.9, chloride 107, carbon dioxide 8.3, glucose 149, calcium 7.5 * BUN: 157, creatinine 8.80, GFR 4 * Lactic acid: 0.9 * The total bilirubin: 0.2, AST 158, ALT 63, alkaline phosphatase 129 * The total creatine kinase: 4490 * CK-MB: 139.8, CK-MB% 3.1 * Total protein: 7.5, albumin 3.0 * PT: 11.0, INR 1.0, APTT 33.6 * Urinalysis: Cloudy with protein, occult blood and bacteria-culture indicated. * Urine culture < 10,000 CFU/ML gram positive alberto * Blood culture: no growth in 5 days. * Pelvis x-ray: No acute findings, mild osteoarthritis of the hips, vascular calcification in the pelvis. * Head CT: No acute intracranial findings * Chest x-ray: No acute cardiopulmonary disease * Cervical spine CT: Moderate degenerative disc disease, no acute findings. The patient arrived to [facility] critically ill and hypothermic. Administered 2L of warmed normal saline and placed under the warming blanket. Imaging showed no acute processes. CBC was normal. Lactic acid was normal. Metabolic profile showed new-onset renal failure. Creatinine: 8.8, BUN 157, GFR 4. Sodium and potassium were both normal. The patient was noted to have a pH of 6.99, with a bicarbonate level of 6, and rhabdomyolysis with a CK level will 4490. She was given 2 additional liters of NS bolus as well as 2 amps of bicarb. Suspected sepsis given the patient was tachycardic, hypothermic on admission. Patient being treated with IV fluids and IV antibiotics, left lower lobe infiltrate which is possibly consistent with an aspiration pneumonia. Nephrology consulted r/t patient's new-onset renal failure. SCr levels reviewed from previous admissions: 1.30 and 2009; 0.73 and 2007. Renal U/S on 11/27/16: Small echogenic kidneys without hydronephrosis, trace pleural effusion, trace ascites. Patient's family indicating the patient has developed some chronic kidney disease over the past year and was being monitor. Abnormal EEG on 11/27/16 consistent with encephalopathy, sharp activity bilaterally suggests possibility of intermittent seizure activity. Of note, patient has a remote history of seizures in childhood. Patient was started on anticonvulsants by neurology. Patient has an extensive cardiac history status post CABG in 1998. Her last heart catheterization was in 2006, grafts were patient at that time. Having runs of SVT, started on Cardizem drip. Cardiology ( Dr. Dominguez) was consulted. The patient is well-known to Dr. Dominguez. Echocardiogram on 11/28/16 with EF of 45 % to 50% and mild aortic stenosis. Abnormal EKG with sinus tachycardia-no clear evidence of [place]. Gastroenterology was consulted on 11/28/16 to assess the patient for questionable GI bleed with reported dark stools. No history of GI bleed per family. Given patient's critical condition, no plan for EGD unless actively bleeding. Plan to monitor HH and transfuse as necessary. Follow-up chest x-ray showed bibasilar pulmonary infiltrates and CT scan also shows consolidation in the lower lung vidales bilaterally, particularly previously in the left lower lobe. Also shows some pleural effusions. Dr. Wilber Negrete (pulmonology) was consulted. Plan to continue antibiotic therapy. Rocephin and IV steroids were started. Palliative Care was consulted to assist with symptom management and to discuss with the patient/family the benefits and burdens of her current illnesses and the options regarding future care. On exam today, patient is lethargic. Patient answers questions with 1-2 word answers. Follows simple commands Oxygen saturations in the high 90s on 2L via nasal cannula. Denies chest pain or shortness of breath, however patient appears to have mild-moderately labored respiration with conversation. Per report, patient was agitated yesterday, pulling out IV lines and Barrios catheter. She was placed soft restraints for a brief period of time. She remains weak, bedbound requiring complete assist. Multiple bruises in varies stages of healing. . Function/Cognitive Trajectory Patient was living fairly independently prior to current hospitalization per niece. She lives in a community with other older adults who help each other regularly. Patient's niece noted her Aunt has fallen 3-4 times in the past 12 months and has becoming increasing confused and forgetful per family/friends. She no longer drives, license denied at last renewal. . Review of Systems ROS Limitations: Altered Mental Status, Poor Historian Constitutional: COMPLAINS OF: Fatigue, Weight loss, Generalized weakness ( Bedbound) Ears, nose, mouth, throat: DENIES: Epistaxis Respiratory: DENIES: Shortness of breath Cardiovascular: COMPLAINS OF: Lower Extremity Edema, DENIES: Chest pain Gastrointestinal: COMPLAINS OF: Black stools (On admission, now resolved) Musculoskeletal: COMPLAINS OF: Back pain Integumentary: COMPLAINS OF: Breast masses (Hx breast cancer) Hematologic/Lymphatics: COMPLAINS OF: Bruising (Multiple, various stages of healing) Neurologic: COMPLAINS OF: Localized weakness, Poor Balance Psychiatric: COMPLAINS OF: Anxiety, Confusion, Agitation Past Family Social History Coded Allergies: Codeine (Verified Allergy, Severe, 09/04/16) Demerol (Verified Allergy, Severe, 09/04/16) Iodine (Verified Allergy, Severe, hives, 09/04/16) Vitamin C (Verified Allergy, Severe, Rash, 09/04/16) RASH RASH Past Medical History Hypothyroidism H/O seizures as a child CAD s/p bypass surgery 1998 Breast cancer in 2009 with chemotherapy and radiation Degenerative joint disease Kyphosis Hyperlipidemia Hypertension Restless leg syndrome H/O intermittent sinus tachycardia . Past Surgical History CABG 1998 Right breast biopsy Cardiac catheterization Cholecystectomy Hysterectomy Tonsillectomy . Reported Medications Centrum (Multivitamins) Tab 1 Tab PO DAILY [Pramiprexole] 1.5 Mg PO HS Aspir-Low (Aspirin) 81 Mg Tab 81 Mg PO DAILY Lipitor (Atorvastatin Calcium) 80 Mg Tab 80 Mg PO DAILY Calcium 600 Mg Tab 600 Mg PO DAILY Mysoline (Primidone) 250 Mg Tab 375 Mg PO BID Levothyroxine 100 mcg (Levothyroxine Sodium) 100 Mcg Tab 100 Mcg PO DAILY . Current Medications Medications (Trade) Dose Ordered Sig/Renea Route Start Time Stop Time Status Last Admin (NS Flush) 2 ml UNSCH PRN IV FLUSH 11/26/16 19:15 (NS Flush) 2 ml BID IV FLUSH 11/26/16 21:00 12/02/16 08:21 (Zofran Inj) 4 mg Q6H PRN IV 11/26/16 19:15 (Colace Liq) 100 mg Q12H G-TUBE 11/26/16 20:00 12/01/16 22:54 (Dulcolax Supp) 10 mg DAILY PRN RECTAL 11/26/16 19:15 Miscellaneous Information 1 Q361D XX 11/26/16 19:15 (Chlorhexidine 2% Cloth) Taper DAILY@04 TOP 11/27/16 04:00 11/23/17 03:59 12/01/16 04:00 Chlorhexidine Gluconate 3 pack 3 pack UNSCH PRN TOP 11/26/16 19:15 (KCl 20 Meq Premix Inj) 100 ml @ 50 mls/hr Q2H PRN IV 11/27/16 16:45 11/30/16 05:40 (Luminal Inj) 65 mg BID IV 11/27/16 21:00 12/02/16 08:21 Lorazepam 1 mg 1 mg Q4H PRN IV PUSH 11/27/16 17:15 (Cardizem Inj/NS Inj) 125 ml @ 0 mls/hr TITRATE IV 11/27/16 23:00 11/29/16 09:41 Fentanyl Citrate 50 mcg 50 mcg Q6HR PRN IV PUSH 11/28/16 07:00 11/29/16 01:35 (Levaquin 500 Mg Premix Inj) 100 ml @ 100 mls/hr Q36H IV 11/28/16 10:00 12/01/16 09:35 (Lopressor) 25 mg Q12HR PO 11/29/16 11:00 12/02/16 08:20 (Flagyl) 500 mg Q8H PO 12/01/16 01:00 12/02/16 08:20 (Protonix) 40 mg Q12HR PO 12/01/16 09:00 12/02/16 08:20 (Keppra) 500 mg BID PO 12/01/16 09:00 12/02/16 08:20 (Lipitor) 80 mg HS PO 12/01/16 21:00 12/01/16 22:54 Levothyroxine Sodium 150 mcg 150 mcg DAILY@06 PO 12/01/16 16:45 12/02/16 06:31 Sodium Chloride 38.5 meq/Sterile Water 1,009.625 ml @ 100 mls/hr Q10H6M IV 12/01/16 18:00 12/01/16 22:57 (Rocephin Inj/NS Inj) 100 ml @ 200 mls/hr Q24H IV 12/01/16 20:00 12/01/16 21:37 (SoluMEDROL INJ) 40 mg Q8H IV 12/01/16 20:00 12/02/16 06:30 . Family History Family history is positive for CHF, coronary artery disease, lung cancer and myocardial infarction. . Substance Use Tobacco: Previous smoker, many years ago, Alcohol: None known Prescription med abuse: None known Illicits: None known . Psychosocial History Patient was born in [place] and parts remover to [place] as a young child. She had one brother (Lei) and one sister( Nidhi), her brother last year. Her sister lives in [place], currently ill with CHF. As a young adult, the patient and her family parts remover to [place]. She was for many years to Jorge A who approximately 8-9 years ago. They never had children. The patient worked in a [email or web address] and the local [employer]. . Spiritual/Cultural Factors Gnosticist patience . Living Will: Copy in medical record Health Care Surrogate: Copy in medical record Durable Power of Telecom Manager: Copy in medical record Date completed: 04/13/16 . Health Care Surrogate(s): Patient's sister (Nidhi Jiménez) is designated as the primary HCS and her niece (Carmen Betancourt) is the alternate HCS. A notarized document was completed 11/30/16 from the patient's sister relinquishing her rights as the HCS and POA. . Documented care wishes: Living Will completed 04/13/16 . The patient states if she is found to have terminal or incurable or irreversible mental/physical condition and if her attending or treating physician and another consulting physician determined there is no medical or reasonable expectation or probability of her recovery from such conditions, she directs life-prolonging procedures be withheld or withdrawn and the application of such procedures would merely prolong artificially process of dying and that she be permitted to naturally with only the administration of medication or the performance of any medical procedure necessary to provide her with comfort, care or to alleviate pain. She does not wish to prolong life in the event she has a terminal condition, an end-stage condition or is in a persistent vegetative state. She specifically does not want: == Cardiac resuscitation == Fluids by tube == Hydration/water == Mechanical respiration == Nutrition/food == Artificial feeding . Today's verbally stated goals: Patient wants to be comfortable, she does not want further aggressive interventions or diagnostic tests. . Family/friends goals: Requesting hospice consult. . Physical Exam Vital Signs Date Time Temp Pulse Resp B/P Pulse Ox O2 Delivery O2 Flow Rate FiO2 12/02/16 08:59 94 Nasal Cannula 3.00 12/02/16 08:00 65 12/02/16 07:00 69 12/02/16 07:00 98 Nasal Cannula 3.00 12/02/16 07:00 98.1 65 18 142/66 98 12/02/16 06:00 70 12/02/16 05:00 71 12/02/16 04:00 74 12/02/16 03:00 98.8 82 16 142/73 94 12/02/16 03:00 86 12/02/16 02:00 94 3.00 12/02/16 02:00 83 12/02/16 01:00 75 12/02/16 00:00 97 12/01/16 23:00 97.8 105 16 171/88 97 12/01/16 23:00 115 12/01/16 22:00 106 12/01/16 21:00 81 12/01/16 20:00 98 Nasal Cannula 4.00 12/01/16 19:00 99.3 112 12 158/67 98 12/01/16 19:00 116 12/01/16 18:00 90 12/01/16 17:54 98 Nasal Cannula 1.50 12/01/16 17:00 118 12/01/16 16:00 144 12/01/16 15:00 99.1 109 18 111/69 98 12/01/16 15:00 98 Nasal Cannula 1.50 12/01/16 15:00 109 12/01/16 14:00 111 12/01/16 13:00 79 12/01/16 12:00 81 12/01/16 11:42 97 Nasal Cannula 1.50 12/01/16 11:00 76 12/01/16 11:00 97 Nasal Cannula 1.50 12/01/16 11:00 98.0 85 18 129/71 97 12/01/16 10:00 125 . 12/01/16 12/02/16 19:00 07:00 Intake Total 960 ml 1940 ml Output Total 450 ml Balance 510 ml 1940 ml Intake Oral 960 ml 240 ml IV Total 1700 ml Output Urine Total 450 ml # Voids 3 2 # Bowel Movements 1 2 . Exam CONSTITUTIONAL/GENERAL: This is a frail, female patient who appears older than her stated age, in no apparent distress. TUBES/LINES/DRAINS: PIV x 1 SKIN: No jaundice, rashes, or lesions. Mulitple bruises in various stages of healing. Skin temperature appropriate. Not diaphoretic. HEAD: Atraumatic. Normocephalic. EYES: Pupils equal and round and reactive. Extraocular motions intact. No scleral icterus. No injection or drainage. Fundi not examined. ENT: Hearing grossly normal. Nose without bleeding or purulent drainage. NECK: Trachea midline. Supple, nontender. No palpable thyroid enlargement or nodularity. CARDIOVASCULAR: Tachycardic. No murmurs, gallops, or rubs. No JVD. Peripheral pulses symmetric. RESPIRATORY/CHEST: Breath sounds diminished bilaterally. GASTROINTESTINAL: Abdomen soft, non-tender, nondistended. No guarding. Bowel sounds present. GENITOURINARY: Without palpable bladder distension. MUSCULOSKELETAL: Extremities without clubbing, cyanosis, or edema. No obvious deformities. Pain with extension left lower extremity LYMPHATICS: No palpable cervical or supraclavicular adenopathy. NEUROLOGICAL: Lethargic. Answers questions with 1-2 word answers. Follows simple commands. Intermittently confused. PSYCHIATRIC: No apparent hallucinations or other psychotic thought process. . Diagnostic Tests Laboratory Laboratory Tests Test 11/30/16 12/01/16 12/01/16 12/01/16 04:06 05:30 10:23 10:58 Sodium Level 148 MEQ/L 146 MEQ/L 144 MEQ/L (136-145) (136-145) (136-145) Potassium Level 3.4 MEQ/L 3.4 MEQ/L 3.6 MEQ/L (3.5-5.1) (3.5-5.1) (3.5-5.1) Chloride Level 108 MEQ/L 107 MEQ/L 106 MEQ/L (98-107) (98-107) (98-107) Carbon Dioxide Level 30.5 MEQ/L 28.5 MEQ/L 28.6 MEQ/L (21.0-32.0) (21.0-32.0) (21.0-32.0) Anion Gap 10 MEQ/L (5-15) 11 MEQ/L (5-15) 9 MEQ/L (5-15) Blood Urea Nitrogen 121 MG/DL 102 MG/DL 101 MG/DL (7-18) (7-18) (7-18) Creatinine 4.98 MG/DL 4.11 MG/DL 4.12 MG/DL (0.50-1.00) (0.50-1.00) (0.50-1.00) Estimat Glomerular Filtration 9 ML/MIN (>89) 11 ML/MIN (>89) 11 ML/MIN (>89) Rate Random Glucose 125 MG/DL 127 MG/DL 149 MG/DL (74-106) (74-106) (74-106) Calcium Level 6.7 MG/DL 7.2 MG/DL 7.1 MG/DL (8.5-10.1) (8.5-10.1) (8.5-10.1) Phosphorus Level 4.0 MG/DL (2.5-4.9) Total Creatine Kinase 1783 U/L 924 U/L (26-192) (26-192) Creatine Kinase MB 3.7 NG/ML 1.6 NG/ML (0.5-3.6) (0.5-3.6) Creatine Kinase MB % 0.2 % (0.0-4.0) 0.2 % (0.0-4.0) Albumin 1.4 GM/DL 1.4 GM/DL (3.4-5.0) (3.4-5.0) White Blood Count 8.7 TH/MM3 (4.0-11.0) Red Blood Count 3.01 MIL/MM3 (4.00-5.30) Hemoglobin 8.7 GM/DL (11.6-15.3) Hematocrit 26.1 % (35.0-46.0) Mean Corpuscular Volume 86.6 FL (80.0-100.0) Mean Corpuscular Hemoglobin 28.8 PG (27.0-34.0) Mean Corpuscular Hemoglobin 33.2 % Concent (32.0-36.0) Red Cell Distribution Width 22.0 % (11.6-17.2) Platelet Count 163 TH/MM3 (150-450) Mean Platelet Volume 9.4 FL (7.0-11.0) Neutrophils (%) (Auto) 88.3 % (16.0-70.0) Lymphocytes (%) (Auto) 5.6 % (9.0-44.0) Monocytes (%) (Auto) 5.6 % (0.0-8.0) Eosinophils (%) (Auto) 0.4 % (0.0-4.0) Basophils (%) (Auto) 0.1 % (0.0-2.0) Neutrophils # (Auto) 7.7 TH/MM3 (1.8-7.7) Lymphocytes # (Auto) 0.5 TH/MM3 (1.0-4.8) Monocytes # (Auto) 0.5 TH/MM3 (0-0.9) Eosinophils # (Auto) 0.0 TH/MM3 (0-0.4) Basophils # (Auto) 0.0 TH/MM3 (0-0.2) CBC Comment DIFF FINAL Differential Comment Protein Corrected Calcium 8.2 MG/DL 8.1 MG/DL (8.5-10.1) (8.5-10.1) Total Protein 5.3 GM/DL 5.2 GM/DL (6.4-8.2) (6.4-8.2) Total Bilirubin 0.3 MG/DL (0.2-1.0) Aspartate Amino Transf 65 U/L (15-37) (AST/SGOT) Alanine Aminotransferase 37 U/L (10-53) (ALT/SGPT) Alkaline Phosphatase 73 U/L (45-117) Ammonia 34 MCMOL/L (11-32) Test 12/02/16 06:49 White Blood Count 6.9 TH/MM3 (4.0-11.0) Red Blood Count 2.79 MIL/MM3 (4.00-5.30) Hemoglobin 7.8 GM/DL (11.6-15.3) Hematocrit 24.1 % (35.0-46.0) Mean Corpuscular Volume 86.1 FL (80.0-100.0) Mean Corpuscular Hemoglobin 28.0 PG (27.0-34.0) Mean Corpuscular Hemoglobin 32.6 % Concent (32.0-36.0) Red Cell Distribution Width 21.5 % (11.6-17.2) Platelet Count 133 TH/MM3 (150-450) Mean Platelet Volume 9.0 FL (7.0-11.0) Neutrophils (%) (Auto) 90.0 % (16.0-70.0) Lymphocytes (%) (Auto) 5.1 % (9.0-44.0) Monocytes (%) (Auto) 4.7 % (0.0-8.0) Eosinophils (%) (Auto) 0.1 % (0.0-4.0) Basophils (%) (Auto) 0.1 % (0.0-2.0) Neutrophils # (Auto) 6.2 TH/MM3 (1.8-7.7) Lymphocytes # (Auto) 0.4 TH/MM3 (1.0-4.8) Monocytes # (Auto) 0.3 TH/MM3 (0-0.9) Eosinophils # (Auto) 0.0 TH/MM3 (0-0.4) Basophils # (Auto) 0.0 TH/MM3 (0-0.2) CBC Comment DIFF FINAL Differential Comment Sodium Level 141 MEQ/L (136-145) Potassium Level 4.0 MEQ/L (3.5-5.1) Chloride Level 105 MEQ/L (98-107) Carbon Dioxide Level 27.6 MEQ/L (21.0-32.0) Anion Gap 8 MEQ/L (5-15) Blood Urea Nitrogen 94 MG/DL (7-18) Creatinine 3.54 MG/DL (0.50-1.00) Estimat Glomerular Filtration 13 ML/MIN (>89) Rate Random Glucose 107 MG/DL (74-106) Calcium Level 7.3 MG/DL (8.5-10.1) Phosphorus Level 3.8 MG/DL (2.5-4.9) Magnesium Level 1.4 MG/DL (1.5-2.5) Total Creatine Kinase 384 U/L (26-192) Creatine Kinase MB 1.6 NG/ML (0.5-3.6) Creatine Kinase MB % 0.4 % (0.0-4.0) Albumin 1.3 GM/DL (3.4-5.0) Free Thyroxine 0.61 NG/DL (0.76-1.46) . Result Diagram: 12/02/16 0649 12/02/16 0649 Microbiology Microbiology Date/Time Procedure Status Source Growth 11/27/16 13:10 Stool Occult Blood (CELESTINE) - Final Complete Stool Stool HEMOCCULT POSITIVE . Imaging Last 72 hours Impressions Brain MRI 12/01/16 0000 Signed Impressions: Service Date/Time: Thursday, December 01, 2016 20:10 - CONCLUSION: No acute intracranial abnormality. Scattered sinus disease. Sal Sneed MD . Procedures 11/27/16: Cardioversion for SVT . Patient/Family Conference Present at Family Conference: Met with patient's niece at patient's bedside and again privately. . Family Conference Location: Bedside, Consult Room Issues Discussed: * Palliative care role, purpose, approach * Additional medical, psychosocial, and spiritual history * Patients general health, functional status, and cognitive changes in the months leading up to the current hospitalization * Patient/family understanding of the current medical problems * Patient/family understanding of prognosis * Patients goals of care as best understood from advance directives and/or conversations and/or values * Current medical treatment options and benefits/burdens of those options * Likely scenarios comparing ongoing aggressive care with a transition to comfort measures only * Questions answered to the best of my ability * Palliative care contact information provided . Assessment and Plan Disease Oriented Problem List: (1) Sinus tachycardia (2) Rhabdomyolysis (3) ALEXEY (acute kidney injury) (4) Melena (5) Hyperlipidemia (6) Consolidation lung (7) Encephalopathy (8) Seizure disorder (9) CAD (coronary artery disease) (10) Confusion (11) Dehydration, severe (12) Rhabdomyolysis (13) Hypothermia (14) Uremic encephalopathy Symptom Scale: (1) Pain Comment: Pain with extension left lower extremity. Other possible causes of pain may include invasive lines, recent fall, infection, bedbound status, immobility, confusion, degenerative disc disease. etc. (2) Dyspnea Comment: Oxygen saturations in the high 90s on 2L via nasal cannula. Denies chest pain or shortness of breath, however patient appears to have mild- moderately labored respiration with conversation. (3) Anxiety Comment: Per report, patient was agitated yesterday, pulling out IV lines and Barrios catheter. She was placed soft restraints for a brief period of time. . Pertinent Non-Medical Issues Psychosocial: Patient was born in [place] and parts remover to [place] as a young child. She had one brother (Lei) and one sister( Nidhi), her brother last year. Her sister lives in [place], currently ill with CHF. As a young adult, the patient and her family parts remover to [place]. She was for many years to Jorge A who approximately 8-9 years ago. They never had children. The patient worked in a [email or web address] and the local [employer]. Spiritual: Gnosticist patience Legal: Patient's sister (Nidhi Jiménez) is designated as the primary HCS and her niece (Carmen Betancourt) is the alternate HCS. A notarized document was completed 11/30/16 from the patient's sister relinquishing her rights as the HCS and POA. Ethical issues impacting care: No known ethical issues impacting care at this time. Important Contacts Carmen Bararmandojoann, niece/nephew: [phone] Estrada Soto, friend: [phone] . Prognosis Patient is a 71 year old female patient recently admitted with rhabdomyolysis, acute kidney injury, encephalopathy. PMH includes hypothyroidism, h/o seizures in childhood, CAD s/p triple bypass, breast Ca in 2010, degenerative joint disease, hyperlipidemia, HTN, restless leg syndrome, and arrhythmias. Patient was living independently prior to hospitalization. She is now weak, bed bound - refusing further aggressive treatment and/or diagnostic testing. . Code Status: No Code Plan * NO CODE * Decision-making: Patient's sister (Nidhi Jiménez) is designated as the primary HCS and her niece (Carmen Betancourt) is the alternate HCS. A notarized document was completed 11/30/16 from the patient's sister relinquishing her rights as the HCS and POA. * Goals: Patient wants to be comfortable, she does not want further aggressive interventions or diagnostic tests. * Discussed with Dr. Hauser, Dr. Dominguez and Dr. Cardenas. * Reviewed patient's written advanced directives with patient's niece, Carmen, stating the patient wishes to be a NO CODE-DNR. Patient confirmed these wishes during a conversation in front of the patient's niece. CODE STATUS changed to NO CODEDNR per patient's request and written advanced directives. * Hospice consult placed. * Kitchen Cleaner consult placed. * Living Will completed 04/13/16. Faxed to [facility], by Karlie Roberts LCSW, to be scanned into the patient EMR. Copies in paper chart. * Symptom management-pain: Pain with extension left lower extremity. Other possible causes of pain may include invasive lines, recent fall, infection, bedbound status, immobility, confusion, degenerative disc disease. etc. * Symptom management- anxiety: Per report, patient was agitated yesterday, pulling out IV lines and Barrios catheter. She was placed soft restraints for a brief period of time. * Abnormal EEG on 11/27/16 consistent with encephalopathy, sharp activity bilaterally suggests possibility of intermittent seizure activity. Of note, patient has a remote history of seizures in childhood. Patient was started on anticonvulsants by neurology. * EF 45% to 50% * Palliative Care contact information provided to patient/family * Palliative Care will continue to follow the patient throughout her hospitalization to establish trust, assist with symptom management and clarification of medical treatment goals. Thank you for the opportunity to participate in the care of Ms. Qiu. . Attestation To help prompt me to consider important information that might be impacting today's encounter and assessment, information from prior notes written by myself or my colleagues may have been "brought forward" into today's note. My signature on this note, however, is an attestation that I personally performed the exam, history, and/or decision-making noted today, and, unless otherwise indicated, the interactions with patient, family, and staff as well as the review of records all occurred today. I also attest that the listed assessment and stated plan reflect my best clinical judgment today based on the combination of historical information, prior notes, and today's exam/ interactions. When time spent is documented, it refers only to time spent today by the signer, or if indicated, combined time spent today by collaborating physician/nurse practitioner. . Doreen Prado Dec 02, 2016 11:29 Doreen Prado Dec 02, 2016 11:29
[2016-12-02] MEDS: MAGNESIUM SULFATE 1 GM PREMIX 100 ML IV SCH ×2 (12:05→13:28)
--- NOTE | 2016-12-02 12:12 | EKG ---
Date Performed: 12/01/2016 Time Performed: 17:48:06 PTAGE: 71 years EKG: Sinus tachycardia with PAC(s) Poor R wave progression - probable normal variant Inferior an d anterior T wave changes are nonspecific Compared to previous tracing, ST-T wave abnormalities have improved. Borderline ECG PREVIOUS TRACING : 11/27/2016 21.08 DOCTOR: Justin Dominguez Interpretating Date/Time 12/02/2016 12:11:15
--- NOTE | 2016-12-02 12:48 | HHI.PR ---
Subjective Remarks Weak and tachycardic. On O2 5 L. Family wants hospice . Objective Vital Signs Date Time Temp Pulse Resp B/P Pulse Ox O2 Delivery O2 Flow Rate FiO2 12/02/16 12:03 122 12/02/16 11:00 98.2 122 18 128/74 98 12/02/16 11:00 123 12/02/16 11:00 98 Nasal Cannula 2.00 12/02/16 10:00 105 12/02/16 09:00 78 12/02/16 08:59 94 Nasal Cannula 3.00 12/02/16 08:00 65 12/02/16 07:00 69 12/02/16 07:00 98 Nasal Cannula 3.00 12/02/16 07:00 98.1 65 18 142/66 98 12/02/16 06:00 70 12/02/16 05:00 71 12/02/16 04:00 74 12/02/16 03:00 98.8 82 16 142/73 94 12/02/16 03:00 86 12/02/16 02:00 94 3.00 12/02/16 02:00 83 12/02/16 01:00 75 12/02/16 00:00 97 12/01/16 23:00 97.8 105 16 171/88 97 12/01/16 23:00 115 12/01/16 22:00 106 12/01/16 21:00 81 12/01/16 20:00 98 Nasal Cannula 4.00 12/01/16 19:00 99.3 112 12 158/67 98 12/01/16 19:00 116 12/01/16 18:00 90 12/01/16 17:54 98 Nasal Cannula 1.50 12/01/16 17:00 118 12/01/16 16:00 144 12/01/16 15:00 99.1 109 18 111/69 98 12/01/16 15:00 98 Nasal Cannula 1.50 12/01/16 15:00 109 12/01/16 14:00 111 12/01/16 13:00 79 I/O 12/01/16 12/01/16 12/01/16 12/02/16 12/02/16 12/02/16 07:00 15:00 23:00 07:00 15:00 23:00 Intake Total 712 ml 960 ml 1940 ml Output Total 350 ml 450 ml Balance 362 ml 510 ml 1940 ml Intake Oral 260 ml 960 ml 240 ml IV Total 452 ml 1700 ml Output Urine Total 350 ml 450 ml # Voids 2 3 2 # Bowel Movements 2 1 2 Result Diagram: 12/02/1664812/02/16648 Objective Remarks This is a thinly built elderly white female who is pale and dyspneic. She has edema of the extremities. HEENT: Head normocephalic. Pupils are reactive. Sclerae are injected. Tongue is dry. Throat clear. He has no inflammation. NECK: Supple. No bruits. Minimal venous distension. Trachea midline. No thyroid enlargement. CHEST: Equal movements with percussion note resonant and breath sounds diminished at the periphery with occasional wheezes bilaterally. HEART: Heart sounds are regular S1-S2. Tachycardic. No murmur. No S3. ABDOMEN: Soft, protuberant. No masses or organomegaly or tenderness. EXTREMITIES: No clubbing. There is mild peripheral edema of all extremities with diminished pulses. Reflexes not well elicited. The patient however does move both her arms, squeezes weakly with her hands and the skin turgor is good. BREASTS: Exam is deferred. NEUROLOGIC: Weak, and poor effort . Assessment and Plan Assessment and Plan IMPRESSION 1. Bibasilar pulmonary infiltrates with pneumonia and atelectasis left lower lobe. 2. Coronary artery disease and cardiomyopathy. 3. Tachycardic. 4. Acute kidney injury with rhabdomyolysis 5. Metabolic acidosis 6. Encephalopathy Plan : 1. Continue antibiotics. 2. Wean O2 to 2 L. 3. Nebs qid , prn ,Duoneb. 4. Solumedrol 40 mg bid. 5. IS at bedside qid. 6. Labs and CXR in am. Nita Cardenas MD Dec 02, 2016 12:47
--- NOTE | 2016-12-02 14:41 | HHI.PR ---
Subjective Remarks deferred entry - patient seen earlier at 10 am. Patient is lethargic but arousable. Oriented when spoken to.. On statin. Patient's niece is at bedside. Creatinine is trending down. Patient is afebrile Apparently had a mental status change Tachycardia resolved Objective Vitals Vital Signs Date Time Temp Pulse Resp B/P Pulse Ox O2 Delivery O2 Flow Rate FiO2 12/02/16 13:00 77 12/02/16 12:03 122 12/02/16 11:00 98.2 122 18 128/74 98 12/02/16 11:00 123 12/02/16 11:00 98 Nasal Cannula 2.00 12/02/16 10:00 105 12/02/16 09:00 78 12/02/16 08:59 94 Nasal Cannula 3.00 12/02/16 08:00 65 12/02/16 07:00 69 12/02/16 07:00 98 Nasal Cannula 3.00 12/02/16 07:00 98.1 65 18 142/66 98 12/02/16 06:00 70 12/02/16 05:00 71 12/02/16 04:00 74 12/02/16 03:00 98.8 82 16 142/73 94 12/02/16 03:00 86 12/02/16 02:00 94 3.00 12/02/16 02:00 83 12/02/16 01:00 75 12/02/16 00:00 97 12/01/16 23:00 97.8 105 16 171/88 97 12/01/16 23:00 115 12/01/16 22:00 106 12/01/16 21:00 81 12/01/16 20:00 98 Nasal Cannula 4.00 12/01/16 19:00 99.3 112 12 158/67 98 12/01/16 19:00 116 12/01/16 18:00 90 12/01/16 17:54 98 Nasal Cannula 1.50 12/01/16 17:00 118 12/01/16 16:00 144 12/01/16 15:00 99.1 109 18 111/69 98 12/01/16 15:00 98 Nasal Cannula 1.50 12/01/16 15:00 109 I/O 12/01/16 12/01/16 12/01/16 12/02/16 12/02/1612/17 07:00 15:00 23:00 07:00 15:00 23:00 Intake Total 712 ml 960 ml 1940 ml Output Total 350 ml 450 ml Balance 362 ml 510 ml 1940 ml Intake Oral 260 ml 960 ml 240 ml IV Total 452 ml 1700 ml Output Urine Total 350 ml 450 ml # Voids 2 3 2 # Bowel Movements 2 1 2 Result Diagram: 12/02/16 0649 12/02/16 0649 Imaging Last Impressions Brain MRI 12/01/16 0000 Signed Impressions: Service Date/Time: Thursday, December 01, 2016 20:10 - CONCLUSION: No acute intracranial abnormality. Scattered sinus disease. Sal Sneed MD Chest X-Ray 11/29/16 0000 Signed Impressions: Service Date/Time: Tuesday, November 29, 2016 07:12 - CONCLUSION: 1. Stable left basilar opacity likely representing pleural effusion with associated volume loss and/or airspace consolidation. 2. New mild opacity at the right lung base could represent atelectasis, consolidation, and/or effusion. Lei Michel MD Chest CT 11/29/16 0000 Signed Impressions: Service Date/Time: Wednesday, November 30, 2016 09:28 - CONCLUSION: 1. Patchy airspace consolidation in the upper lobes bilaterally. This could represent an infectious process in the appropriate clinical setting. 2. There is volume loss versus consolidation of the entire left lower lobe. 3. Small right pleural effusion with compressive atelectasis and trace left pleural fluid. Lei Michel MD Renal Ultrasound 11/27/16 0000 Signed Impressions: Service Date/Time: Sunday, November 27, 2016 07:54 - CONCLUSION: Small echogenic kidneys without hydronephrosis. Trace pleural effusions. Trace ascites. Richard Bernal MD FACR Pelvis X-Ray 11/26/16 0000 Signed Impressions: Service Date/Time: Saturday, November 26, 2016 17:18 - CONCLUSION: 1. No acute findings. Mild osteoarthritis of the hips. Vascular calcifications in the pelvis. Domenico Mar MD Head CT 11/26/16 0000 Signed Impressions: Service Date/Time: Saturday, November 26, 2016 17:22 - CONCLUSION: No acute intracranial findings. Lei Dewitt MD Cervical Spine CT 11/26/16 0000 Signed Impressions: Service Date/Time: Saturday, November 26, 2016 17:25 - CONCLUSION: 1. Moderate degenerative disc disease. No acute findings. Domenico Mar MD Objective Remarks GENERAL: Elderly female appearing older than stated age. SKIN: Cool and dry. Noted deep tissue injury in sacral area. There is a stage I on posterior right heel and left lateral foot. Deep tissue injury seen to right plantar heel and left lateral malleolus. Skin tears noted on the left upper buttock and left posterior flank. HEAD: Normocephalic. EYES: PERRLA, No scleral icterus. No injection or drainage. ENT: No nasal bleeding or discharge. Mucous membranes dry. On partial rebreather NECK: Trachea midline. No JVD. CARDIOVASCULAR: Tachycardic, regular rhythm. RESPIRATORY: No accessory muscle use. Breath sounds equal bilaterally, decreased at bases. Scattered rhonchi bilaterally. GASTROINTESTINAL: Abdomen soft, non-tender, nondistended. No guarding. MUSCULOSKELETAL: Extremities without clubbing, cyanosis, or edema. No obvious deformities. Pain with extension left lower extremity NEUROLOGICAL: Awake and alert, attempts to speak but her voice is very hoarse weakness noticed on the left upper extremity more than compared to the right. Left upper extremity muscle strength is 2/5 in right upper extremity is 4/5. Bilateral lower extremities are 2/5 in muscle strength. Sensation seems to be intact. Patient is awake and alert 2, person and place but not to time. Patient is able to follow commands. No facial droop noticed. Medications and IVs Current Medications Medications (Trade) Dose Ordered Sig/Renea Route Start Time Stop Time Status Last Admin (NS Flush) 2 ml UNSCH PRN IV FLUSH 11/26/16 19:15 (NS Flush) 2 ml BID IV FLUSH 11/26/16 21:00 12/02/16 08:21 (Zofran Inj) 4 mg Q6H PRN IV 11/26/16 19:15 (Colace Liq) 100 mg Q12H G-TUBE 11/26/16 20:00 12/01/16 22:54 (Dulcolax Supp) 10 mg DAILY PRN RECTAL 11/26/16 19:15 Miscellaneous Information 1 Q361D XX 11/26/16 19:15 (Chlorhexidine 2% Cloth) Taper DAILY@04 TOP 11/27/16 04:00 11/23/17 03:59 12/01/16 04:00 Chlorhexidine Gluconate 3 pack 3 pack UNSCH PRN TOP 11/26/16 19:15 (KCl 20 Meq Premix Inj) 100 ml @ 50 mls/hr Q2H PRN IV 11/27/16 16:45 11/30/16 05:40 (Luminal Inj) 65 mg BID IV 11/27/16 21:00 12/02/16 08:21 Lorazepam 1 mg 1 mg Q4H PRN IV PUSH 11/27/16 17:15 (Cardizem Inj/NS Inj) 125 ml @ 0 mls/hr TITRATE IV 11/27/16 23:00 11/29/16 09:41 Fentanyl Citrate 50 mcg 50 mcg Q6HR PRN IV PUSH 11/28/16 07:00 11/29/16 01:35 (Levaquin 500 Mg Premix Inj) 100 ml @ 100 mls/hr Q36H IV 11/28/16 10:00 12/01/16 09:35 (Lopressor) 25 mg Q12HR PO 11/29/16 11:00 12/02/16 08:20 (Flagyl) 500 mg Q8H PO 12/01/16 01:00 12/02/16 08:20 (Protonix) 40 mg Q12HR PO 12/01/16 09:00 12/02/16 08:20 (Keppra) 500 mg BID PO 12/01/16 09:00 12/02/16 08:20 (Lipitor) 80 mg HS PO 12/01/16 21:00 12/01/16 22:54 Levothyroxine Sodium 150 mcg 150 mcg DAILY@06 PO 12/01/16 16:45 12/02/16 06:31 Sodium Chloride 38.5 meq/Sterile Water 1,009.625 ml @ 100 mls/hr Q10H6M IV 12/01/16 18:00 12/01/16 22:57 (Rocephin Inj/NS Inj) 100 ml @ 200 mls/hr Q24H IV 12/01/16 20:00 12/01/16 21:37 Methylprednisolone Sodium Succinate 40 mg 40 mg Q8H IV 12/01/16 20:00 12/02/16 12:05 (NS 250 ml Inj) 250 ml @ 15 mls/hr ONCE ONCE IV 12/02/16 11:30 12/03/16 04:09 12/02/16 12:06 (Tylenol) 650 mg Q4H PRN PO 12/02/16 11:30 12/02/16 15:31 (Benadryl) 25 mg Q4H PRN PO 12/02/16 11:30 12/02/16 15:31 Urinary Catheter: Yes Assessment to: Remove Vascular Central Line Catheter: No A/P Problem List: (1) Seizure disorder ICD Code: G40.909 Status: Acute (2) Encephalopathy ICD Code: G93.40 Status: Acute (3) Consolidation lung ICD Code: J18.1 Status: Acute (4) Hyperlipidemia ICD Code: E78.5 Status: Acute (5) CAD (coronary artery disease) ICD Code: I25.10 Status: Acute (6) Sinus tachycardia ICD Code: R00.0 Status: Acute (7) ALEXEY (acute kidney injury) ICD Code: N17.9 Status: Acute (8) Rhabdomyolysis ICD Code: M62.82 Status: Acute (9) Metabolic acidosis ICD Code: E87.2 Status: Acute (10) Transaminitis ICD Code: R74.0 Status: Acute (11) Melena ICD Code: K92.1 Status: Acute (12) Dehydration ICD Code: E86.0 Status: Resolved (13) Diarrhea ICD Code: R19.7 Status: Resolved (14) Hypothyroidism ICD Code: E03.9 Status: Acute (15) Aspiration pneumonia ICD Code: J69.0 Status: Acute (16) Hypernatremia ICD Code: E87.0 Status: Acute (17) Hypocalcemia ICD Code: E83.51 Status: Acute (18) Decubitus ulcer of sacral area ICD Code: L89.159 Status: Acute (19) Hypothermia ICD Code: T68.XXXA Status: Acute (20) Sepsis ICD Code: A41.9 Status: Acute (21) Weakness ICD Code: R53.1 Status: Acute Assessment and Plan (1) Seizure disorder Plan: This is an elderly female, found unconscious from unknown limited of time , presenting with rhabdomyolysis, hypothermia, altered mental status, with a severe metabolic acidosis. The patient's medical records revealed the patient has a history of seizures, and cardiovascular disease. Patient found unconscious on the floor EEG with abnormal waves. Patient started on Keppra and Phenobarbital by Dr Galaviz from neurology. -CT head 11/26-no intracranial abnormality -CT cervical 11/26 moderate degenerative disc disease -C-spine cleared by Dr. Galaviz. -MRI was negative for acute stroke. Follow-up neurology recommendations. (2) Encephalopathy Plan: Patient with episodes of agitation, requiring restraints. Continue to restraint as needed Now wake and alert x2 MRI brain ruled out stroke. (3) Consolidation lung Plan: cxr showed left lower lung infiltrate. Patient on IV antibiotics with IV Levaquin, Iv Flagyl Ct chest shows patchy consolidation of the upper lobes bilaterally, Volume loss consolidation in left lower lobe. -Maintain O2 sat greater than 92%. On 50% ventimask O2, titrate down as tolerated -Bronchodilators every 4 hours when necessary for wheezing -Maintain head of bed elevation 30 patient is an aspiration risk -CT chest with entire left lower lobe consolidation versus atelectasis, left lower lobe atelectasis. Pulmonary recommendations appreciated. The patient placed on IPPB with Mucomyst with nebulized DuoNeb solution 4 times a day. Continue to use incentive spirometer as much as possible. Continue IV Solu-Medrol 40 mg IV every 12 hours as per pulmonary recommendations and physical therapy evaluation. BiPAP could be used in case her blood gases deteriorate. (4) Hyperlipidemia Plan: Continue Statin. Patient on Atorvastatin 80 mg po daily. Check lipid profile (5) CAD (coronary artery disease) Plan: Patient previously on aspirin 81 mg po daily at home. Patient's aspirin was held due to reported dark stools. Patient was on protonix drip now on Protonix BID orally. GI consulted - no evidence of GI bleed - Patient is hemmocult positive will repeat guaaic stool and if negative resume aspirin. Heme occult is pending. (6) Sinus tachycardia Plan: Patient seen by cardiology. tomi daniels after heart rate was in the 120's. Started on oral metoprolol by Dr Dominguez with significant improvement. Likely resolved after IV fluid administration. Continue to monitor vital signs. (7) ALEXEY (acute kidney injury) Plan: Likely due to prerenal azotemia and azotemia as well as rhabdomyolysis. Creatinine trending down --- 3.4 nephrology consulted Continue to monitor BUN and creatinine, history I's and O's. Patient has good urine output. (8) Rhabdomyolysis Plan: Continue IV fluids. Traumatic from lying on the floor. fu total ck which has been trending down. - now 384 (9) Metabolic acidosis Plan: Anion gap metabolic acidosis now resolved after IV fluid administration. Lactic acid normal. (10) Transaminitis Plan: Possibly due to rhabdomyolisis. ALT and AST elevated initially now trending down. AST elevated at 65 (11) Melena Plan: Dark stools reported. GI consulted. Previously on Protonix drip, discontinued by GI since patient without evidence of GI bleed. Stool Hemoccult positive. recheck stool guaiac. ---> still pending. (12) Dehydration Plan: Resolved after Iv fluid administration. (13) Diarrhea Plan: Patient with diarrhea previously. Now resolved as per documented RN report. I will continue to monitor. (14) Hypothyroidism Plan: Continue levothyroxine at 150 mg by mouth daily. Patient initially with low TSH at a level of 0.3-9. Thyroxine lower at 2.1. Will check free T4. Patient likely with euthyroid sick syndrome. (15) Aspiration pneumonia Plan: Continue IV antibiotics to cover for aspiration pneumonia. Chest imaging shows left lower lobe consolidation. Blood cultures negative 5. (16) Hypernatremia Plan: This secondary to dehydration and poor oral intake. Patient currently on D5 water with sodium trending down, level now at 144. Continue to monitor BMP. (17) Hypocalcemia Plan: Likely secondary to poor oral intake. Replace with IV calcium chloride and continue to monitor calcium. (18) Decubitus ulcer of sacral area Plan: Appreciate wound care recommendations. Patient needs [place] cream twice a day which sank apply to coccyx and perianal area. Patient has stage I all sport to her right heel and left lateral foot. Deep tissue injuries seem to right plantar heel and left my lateral malleolus. They need a skin prep twice a day. Trach cover dressings to skin tears on the left upper buttock and left posterior flank. She changed daily when necessary. (19) Hypothermia Plan: - s/p warming. -Continue to monitor temperature. (20) Sepsis Plan: Suspected sepsis given the patient was tachycardic, hypothermic. Present on admission. As per the patient's niece the patient was inside the house in the kitchen and not in the backyard as stated in the emergency department records. Patient being treated with IV fluids, IV antibiotics and has a left lower lobe infiltrate which is possibly consistent with an aspiration pneumonia. (21) Weakness Plan: Physical therapy consulted. Assessment and Plan Prophylaxis: GI Prophylaxis PPI DVT Prophylaxis -- SCDs No chemical prophylaxis given suspected GI bleed. Discharge Planning Continue to monitor in the medical floor. Problem Qualifiers (1) Hyperlipidemia: Qualified Code: E78.5 - Hyperlipidemia, unspecified hyperlipidemia type (2) CAD (coronary artery disease): Qualified Code: I25.10 - Coronary artery disease involving [place] coronary artery of [place] heart without angina pectoris (3) Rhabdomyolysis: Qualified Code: T79.6XXD - Traumatic rhabdomyolysis, subsequent encounter (4) Aspiration pneumonia: Qualified Code: J69.0 - Aspiration pneumonia of left lower lobe due to gastric secretions (5) Decubitus ulcer of sacral area: Qualified Code: L89.159 - Decubitus ulcer of sacral region, unspecified ulcer stage (6) Hypothermia: Qualified Code: T68.XXXA - Hypothermia, initial encounter (7) Sepsis: Qualified Code: A41.9 - Sepsis, due to unspecified organism Maulik Valladares MD Dec 02, 2016 14:41
[2016-12-02 15:52] LABS: HDL CHOLESTEROL 24.2 MG/DL (40.0-60.0)
--- NOTE | 2016-12-02 17:25 | HHI.NPPN ---
Subjective History of Present Illness The patient is a 71 yo [place] female who was brought in after being found down at her home for an unknown amount of time. As per records as the patient is very lethargic and not able to provide any information, her neighbor became concerned when they hadn't seen her for some time and called for a welfare check. EMS found her down with AMS and hypothermic. On arrival, her was found to be in renal failure and profoundly acidotic. She was given 4L of NS bolus as well as 2 amps of bicarb. She has been transferred to the ICU for closer monitoring. We were consulted for evaluation of potential need for dialysis. SCr on arrival 8.80 that has improved to 6.54 after IV fluids Na was 142 and is now 153 K+ was 4.9 now 3.1 CO2 was 8.3 now 12 (HCO3 per ABG 6 on admission and improved to 11 at consult) We have only 2 other SCr levels for review from previous admissions: 1.30 in 2009 and 0.73 in 2006 Interval History Patient not responding to questions currently. Review of Systems General General Remarks Not able to obtain Objective Data Data 12/01/16 12/02/16 19:00 07:00 Intake Total 960 ml 1940 ml Output Total 450 ml Balance 510 ml 1940 ml Intake Oral 960 ml 240 ml IV Total 1700 ml Output Urine Total 450 ml # Voids 3 2 # Bowel Movements 1 2 Vital Signs Date Time Temp Pulse Resp B/P Pulse Ox O2 Delivery O2 Flow Rate FiO2 12/02/16 16:00 78 12/02/16 15:15 98.9 102 14 123/68 94 12/02/16 15:00 94 Nasal Cannula 2.00 12/02/16 15:00 108 12/02/16 15:00 98.9 102 18 123/68 94 12/02/16 14:00 91 12/02/16 13:00 77 12/02/16 12:03 122 12/02/16 11:00 98.2 122 18 128/74 98 12/02/16 11:00 123 12/02/16 11:00 98 Nasal Cannula 2.00 12/02/16 10:00 105 12/02/16 09:00 78 12/02/16 08:59 94 Nasal Cannula 3.00 12/02/16 08:00 65 12/02/16 07:00 69 12/02/16 07:00 98 Nasal Cannula 3.00 12/02/16 07:00 98.1 65 18 142/66 98 12/02/16 06:00 70 12/02/16 05:00 71 12/02/16 04:00 74 12/02/16 03:00 98.8 82 16 142/73 94 12/02/16 03:00 86 12/02/16 02:00 94 3.00 12/02/16 02:00 83 12/02/16 01:00 75 12/02/16 00:00 97 12/01/16 23:00 97.8 105 16 171/88 97 12/01/16 23:00 115 12/01/16 22:00 106 12/01/16 21:00 81 12/01/16 20:00 98 Nasal Cannula 4.00 12/01/16 19:00 99.3 112 12 158/67 98 12/01/16 19:00 116 12/01/16 18:00 90 12/01/16 17:54 98 Nasal Cannula 1.50 -: 12/02/16 0649 12/02/16 0649 Microbiology 12/02/16 Stool Occult Blood (CELESTINE) - Final, Complete HEMOCCULT NEGATIVE Physical Exam General Appearance: No Acute Distress, Comfortable Pulmonary Resp Exam: Clear Bilaterally, Breath Sounds Equal, Diminished Breath Sounds Cardiology CV Exam: Tachycardia Gastrointestinal/Abdomen GI Exam: Soft, Non-Tender Integumentary Skin Exam: Dry Extremeties Extremities Exam: Trace Edema Assessment/Plan Problem List: (1) Renal failure Plan: Patient's creatinine level continues to improve albeit slowly. Hypernatremia has resolved. Unfortunately baseline creatinine level is not known. It was mentioned that the family was interested in hospice per pulmonary. At this point in time will see the patient on a when necessary basis. Please recall if needed. Medications should be adjusted for the patient's renal dysfunction. Avoid gadolinium. (2) Rhabdomyolysis Plan: Resolving (3) Dehydration, severe Plan: IVF as ordered (4) Anemia Plan: FOBT positive. Appreciate GI consult Problem Qualifiers (1) Rhabdomyolysis: Qualified Code: T79.6XXA - Traumatic rhabdomyolysis, initial encounter Luda Kirby MD Dec 02, 2016 17:25
--- NOTE | 2016-12-02 20:38 | HHI.PR ---
Review/Management Diagnosis mental status change---possible sz with post ictal state Plan continue phenobarbital and keppra--change phenobarbital to po Diagnosis/Plan: Subjective Subjective Comments No acute events reported No seizures Active Medications Current Medications Medications (Trade) Dose Ordered Sig/Renea Route Start Time Stop Time Status Last Admin (NS Flush) 2 ml UNSCH PRN IV FLUSH 11/26/16 19:15 (NS Flush) 2 ml BID IV FLUSH 11/26/16 21:00 12/02/16 08:21 (Zofran Inj) 4 mg Q6H PRN IV 11/26/16 19:15 (Colace Liq) 100 mg Q12H G-TUBE 11/26/16 20:00 12/01/16 22:54 (Dulcolax Supp) 10 mg DAILY PRN RECTAL 11/26/16 19:15 Miscellaneous Information 1 Q361D XX 11/26/16 19:15 (Chlorhexidine 2% Cloth) Taper DAILY@04 TOP 11/27/16 04:00 11/23/17 03:59 12/01/16 04:00 Chlorhexidine Gluconate 3 pack 3 pack UNSCH PRN TOP 11/26/16 19:15 (KCl 20 Meq Premix Inj) 100 ml @ 50 mls/hr Q2H PRN IV 11/27/16 16:45 11/30/16 05:40 (Luminal Inj) 65 mg BID IV 11/27/16 21:00 12/02/16 08:21 Lorazepam 1 mg 1 mg Q4H PRN IV PUSH 11/27/16 17:15 (Cardizem Inj/NS Inj) 125 ml @ 0 mls/hr TITRATE IV 11/27/16 23:00 11/29/16 09:41 Fentanyl Citrate 50 mcg 50 mcg Q6HR PRN IV PUSH 11/28/16 07:00 11/29/16 01:35 (Levaquin 500 Mg Premix Inj) 100 ml @ 100 mls/hr Q36H IV 11/28/16 10:00 12/01/16 09:35 (Lopressor) 25 mg Q12HR PO 11/29/16 11:00 12/02/16 08:20 (Flagyl) 500 mg Q8H PO 12/01/16 01:00 12/02/16 17:10 (Protonix) 40 mg Q12HR PO 12/01/16 09:00 12/02/16 08:20 (Keppra) 500 mg BID PO 12/01/16 09:00 12/02/16 08:20 (Lipitor) 80 mg HS PO 12/01/16 21:00 12/01/16 22:54 Levothyroxine Sodium 150 mcg 150 mcg DAILY@06 PO 12/01/16 16:45 12/02/16 06:31 Sodium Chloride 38.5 meq/Sterile Water 1,009.625 ml @ 100 mls/hr Q10H6M IV 12/01/16 18:00 12/01/16 22:57 (Rocephin Inj/NS Inj) 100 ml @ 200 mls/hr Q24H IV 12/01/16 20:00 12/01/16 21:37 Methylprednisolone Sodium Succinate 40 mg 40 mg Q8H IV 12/01/16 20:00 12/02/16 12:05 (NS 250 ml Inj) 250 ml @ 15 mls/hr ONCE ONCE IV 12/02/16 11:30 12/03/16 04:09 12/02/16 12:06 Allergies Allergies Coded Allergies Codeine (Verified Allergy, Severe, 09/04/16) Demerol (Verified Allergy, Severe, 09/04/16) Iodine (Verified Allergy, Severe, hives, 09/04/16) Vitamin C (Verified Allergy, Severe, Rash, 09/04/16) Exam I&O / VS 12/01/16 12/01/16 12/02/16 15:00 23:00 07:00 Intake Total 960 ml 1940 ml Output Total 450 ml Balance 510 ml 1940 ml Intake Oral 960 ml 240 ml IV Total 1700 ml Output Urine Total 450 ml # Voids 3 2 # Bowel Movements 1 2 Vital Signs Date Time Temp Pulse Resp B/P Pulse Ox O2 Delivery O2 Flow Rate FiO2 12/02/16 18:00 77 12/02/16 17:00 74 12/02/16 16:00 78 12/02/16 15:15 98.9 102 14 123/68 94 12/02/16 15:00 94 Nasal Cannula 2.00 12/02/16 15:00 108 12/02/16 15:00 98.9 102 18 123/68 94 12/02/16 14:00 91 12/02/16 13:00 77 12/02/16 12:03 122 12/02/16 11:00 98.2 122 18 128/74 98 12/02/16 11:00 123 12/02/16 11:00 98 Nasal Cannula 2.00 12/02/16 10:00 105 12/02/16 09:00 78 12/02/16 08:59 94 Nasal Cannula 3.00 12/02/16 08:00 65 12/02/16 07:00 69 12/02/16 07:00 98 Nasal Cannula 3.00 12/02/16 07:00 98.1 65 18 142/66 98 12/02/16 06:00 70 12/02/16 05:00 71 12/02/16 04:00 74 12/02/16 03:00 98.8 82 16 142/73 94 12/02/16 03:00 86 12/02/16 02:00 94 3.00 12/02/16 02:00 83 12/02/16 01:00 75 12/02/16 00:00 97 12/01/16 23:00 97.8 105 16 171/88 97 12/01/16 23:00 115 12/01/16 22:00 106 12/01/16 21:00 81 Exam Comments alert and follows commands CN 2-12 normal MOTOR 5/5 BUE and BLE Objective Micro and Labs Laboratory Tests Test 12/02/16 12/02/16 06:49 12:31 White Blood Count 6.9 Red Blood Count 2.79 Hemoglobin 7.8 Hematocrit 24.1 Mean Corpuscular Volume 86.1 Mean Corpuscular Hemoglobin 28.0 Mean Corpuscular Hemoglobin 32.6 Concent Red Cell Distribution Width 21.5 Platelet Count 133 Mean Platelet Volume 9.0 Neutrophils (%) (Auto) 90.0 Lymphocytes (%) (Auto) 5.1 Monocytes (%) (Auto) 4.7 Eosinophils (%) (Auto) 0.1 Basophils (%) (Auto) 0.1 Neutrophils # (Auto) 6.2 Lymphocytes # (Auto) 0.4 Monocytes # (Auto) 0.3 Eosinophils # (Auto) 0.0 Basophils # (Auto) 0.0 CBC Comment DIFF FINAL Differential Comment Sodium Level 141 Potassium Level 4.0 Chloride Level 105 Carbon Dioxide Level 27.6 Anion Gap 8 Blood Urea Nitrogen 94 Creatinine 3.54 Estimat Glomerular Filtration 13 Rate Random Glucose 107 Calcium Level 7.3 Phosphorus Level 3.8 Magnesium Level 1.4 Total Creatine Kinase 384 Creatine Kinase MB 1.6 Creatine Kinase MB % 0.4 Albumin 1.3 Triglycerides Level 68 Cholesterol Level 76 LDL Cholesterol 38 HDL Cholesterol 24.2 Cholesterol/HDL Ratio 3.14 Free Thyroxine 0.61 Blood Type A POSITIVE Antibody Screen NEGATIVE Crossmatch Leukocyte-Reduced Red Blood Cells Blood Bank Comment Date/Time Procedure Status Source Growth 12/02/16 13:40 Stool Occult Blood (CELESTINE) - Final Complete Stool Stool HEMOCCULT NEGATIVE Porter Galaviz PhD Dec 02, 2016 20:38
[2016-12-02] MEDS: LEVOFLOXACIN 500 MG PREMIX INJ 100 ML IV SCH (23:26)
[2016-12-02] MEDS: ATORVASTATIN 80 MG TAB PO SCH (23:26)
[2016-12-02] MEDS: cefTRIAXone INJ 1,000 MG in SODIUM CHLORIDE 0.9% INJ 100 ML IV SCH (23:34)
[2016-12-03] VITALS (24 sets, daily range): BP systolic 114–159; BP diastolic 56–98; PULSE 68–135; RESP 18–20; TEMP 98.3–98.7; O2SAT 93–96
[2016-12-03] MEDS: SODIUM CHLORIDE 23.4% INJ 38.5 MEQ in WATER STERILE FOR INJ 1,000 ML IV SCH ×3 (00:18→20:04)
[2016-12-03] MEDS: metroNIDAZOLE 500 MG TAB PO SCH ×3 (01:00→15:47)
[2016-12-03] MEDS: CHLORHEXIDINE GLUCONATE 2 % 1 PACK (2 CLOTHS) TOP SCH (04:00)
[2016-12-03] MEDS: methylPREDNISolone SOD SUCC 40 MG/1 ML VIAL IV SCH ×3 (05:03→20:02)
[2016-12-03] MEDS: LEVOTHYROXINE SODIUM 150 MCG TAB PO SCH (05:03)
[2016-12-03 07:05] LABS: AUTOMATED NEUTROPHIL # 6.3 TH/MM3 (1.8-7.7); BASOPHIL % 0.2 % (0.0-2.0); HEMATOCRIT 30.7 % (35.0-46.0); HEMO FLAGS DIFF FINAL; LYMPH % 4.7 % (9.0-44.0); LYMPHOCYTE # 0.3 TH/MM3 (1.0-4.8); MEAN CELL VOLUME 84.2 FL (80.0-100.0); MEAN CORPUSCULAR HEMOGLOBIN 27.3 PG (27.0-34.0); MEAN CORPUSCULAR HGB CONC 32.4 % (32.0-36.0); MONO % 4.5 % (0.0-8.0); NEUT % 90.6 % (16.0-70.0); PLATELET COUNT 155 TH/MM3 (150-450); RED BLOOD COUNT 3.64 MIL/MM3 (4.00-5.30); RED CELL DISTRIBUTION WIDTH 20.5 % (11.6-17.2)
[2016-12-03 07:27] LABS: BICARBONATE 25.6 MEQ/L (21.0-32.0); CALCIUM-PROTEIN CORRECTED 8.2 MG/DL (8.5-10.1); MAGNESIUM 1.9 MG/DL (1.5-2.5); POTASSIUM 4.2 MEQ/L (3.5-5.1); TOTAL BILIRUBIN ADULT 0.3 MG/DL (0.2-1.0)
[2016-12-03] MEDS: DOCUSATE SODIUM 100 MG/10 ML UDC G-TUBE SCH ×2 (08:00→20:02)
[2016-12-03] MEDS: RESP: ALBUTEROL 2.5 MG/IPRATROPIUM 0.5 MG NEB (SCH) NEB ×4 (08:08→19:17)
--- NOTE | 2016-12-03 09:22 | PD.CARD.PN ---
Subjective Subjective Remarks spoke a little. No pain Objective Medications Current Medications Medications (Trade) Dose Ordered Sig/Renea Route Start Time Stop Time Status Last Admin (NS Flush) 2 ml UNSCH PRN IV FLUSH 11/26/16 19:15 (NS Flush) 2 ml BID IV FLUSH 11/26/16 21:00 12/02/16 08:21 (Zofran Inj) 4 mg Q6H PRN IV 11/26/16 19:15 (Colace Liq) 100 mg Q12H G-TUBE 11/26/16 20:00 12/02/16 23:34 (Dulcolax Supp) 10 mg DAILY PRN RECTAL 11/26/16 19:15 Miscellaneous Information 1 Q361D XX 11/26/16 19:15 (Chlorhexidine 2% Cloth) Taper DAILY@04 TOP 11/27/16 04:00 11/23/17 03:59 12/01/16 04:00 Chlorhexidine Gluconate 3 pack 3 pack UNSCH PRN TOP 11/26/16 19:15 (KCl 20 Meq Premix Inj) 100 ml @ 50 mls/hr Q2H PRN IV 11/27/16 16:45 11/30/16 05:40 Lorazepam 1 mg 1 mg Q4H PRN IV PUSH 11/27/16 17:15 (Cardizem Inj/NS Inj) 125 ml @ 0 mls/hr TITRATE IV 11/27/16 23:00 11/29/16 09:41 Fentanyl Citrate 50 mcg 50 mcg Q6HR PRN IV PUSH 11/28/16 07:00 11/29/16 01:35 (Levaquin 500 Mg Premix Inj) 100 ml @ 100 mls/hr Q36H IV 11/28/16 10:00 12/02/16 23:26 (Lopressor) 25 mg Q12HR PO 11/29/16 11:00 12/02/16 23:26 (Flagyl) 500 mg Q8H PO 12/01/16 01:00 12/03/16 01:00 (Protonix) 40 mg Q12HR PO 12/01/16 09:00 12/02/16 23:26 (Keppra) 500 mg BID PO 12/01/16 09:00 12/02/16 23:24 (Lipitor) 80 mg HS PO 12/01/16 21:00 12/02/16 23:26 Levothyroxine Sodium 150 mcg 150 mcg DAILY@06 PO 12/01/16 16:45 12/03/16 05:03 Sodium Chloride 38.5 meq/Sterile Water 1,009.625 ml @ 100 mls/hr Q10H6M IV 12/01/16 18:00 12/01/16 22:57 (Rocephin Inj/NS Inj) 100 ml @ 200 mls/hr Q24H IV 12/01/16 20:00 12/02/16 23:34 (SoluMEDROL INJ) 40 mg Q8H IV 12/01/16 20:00 12/03/16 05:03 (PHENobarbital) 60 mg Q12HR PO 12/02/16 21:00 12/02/16 23:24 Vital Signs / I&O Vital Signs Date Time Temp Pulse Resp B/P Pulse Ox O2 Delivery O2 Flow Rate FiO2 12/03/16 08:14 96 21 12/03/16 06:00 68 12/03/16 05:00 79 12/03/16 04:00 96 12/03/16 03:00 94 Room Air 12/03/16 03:00 73 12/03/16 03:00 98.3 73 18 129/76 93 12/03/16 02:00 88 12/03/16 01:00 87 12/03/16 00:00 106 12/02/16 23:00 97.9 89 18 147/86 94 12/02/16 23:00 89 12/02/16 23:00 93 Room Air 12/02/16 22:00 106 12/02/16 21:40 96 Nasal Cannula 2.00 12/02/16 21:00 76 12/02/16 20:00 67 12/02/16 19:00 18 136/75 95 12/02/16 19:00 70 12/02/16 19:00 95 Nasal Cannula 2.00 12/02/16 18:00 77 12/02/16 17:00 74 12/02/16 16:00 78 12/02/16 15:15 98.9 102 14 123/68 94 12/02/16 15:00 94 Nasal Cannula 2.00 12/02/16 15:00 108 12/02/16 15:00 98.9 102 18 123/68 94 12/02/16 14:00 91 12/02/16 13:00 77 12/02/16 12:03 122 12/02/16 11:00 98.2 122 18 128/74 98 12/02/16 11:00 123 12/02/16 11:00 98 Nasal Cannula 2.00 12/02/16 10:00 105 I/O 12/02/16 12/02/16 12/02/16 12/03/16 12/03/16 12/03/16 07:00 15:00 23:00 07:00 15:00 23:00 Intake Total 1940 ml 1151 ml 1690 ml Balance 1940 ml 1151 ml 1690 ml Intake Oral 240 ml 900 ml 240 ml IV Total 1700 ml 1450 ml Packed Cells 251 ml # Voids 2 3 4 # Bowel Movements 2 1 1 Physical Exam Lethargic. Debilitated Chest clear anteriorly CV S!S2 RRR. Currently appears calm Laboratory Laboratory Tests Test 12/02/16 12/03/16 12:31 06:32 Blood Type A POSITIVE Antibody Screen NEGATIVE Crossmatch Leukocyte-Reduced Red Blood Cells Blood Bank Comment White Blood Count 7.0 TH/MM3 Red Blood Count 3.64 MIL/MM3 Hemoglobin 9.9 GM/DL Hematocrit 30.7 % Mean Corpuscular Volume 84.2 FL Mean Corpuscular Hemoglobin 27.3 PG Mean Corpuscular Hemoglobin 32.4 % Concent Red Cell Distribution Width 20.5 % Platelet Count 155 TH/MM3 Mean Platelet Volume 8.7 FL Neutrophils (%) (Auto) 90.6 % Lymphocytes (%) (Auto) 4.7 % Monocytes (%) (Auto) 4.5 % Eosinophils (%) (Auto) 0.0 % Basophils (%) (Auto) 0.2 % Neutrophils # (Auto) 6.3 TH/MM3 Lymphocytes # (Auto) 0.3 TH/MM3 Monocytes # (Auto) 0.3 TH/MM3 Eosinophils # (Auto) 0.0 TH/MM3 Basophils # (Auto) 0.0 TH/MM3 CBC Comment DIFF FINAL Differential Comment Sodium Level 141 MEQ/L Potassium Level 4.2 MEQ/L Chloride Level 104 MEQ/L Carbon Dioxide Level 25.6 MEQ/L Anion Gap 11 MEQ/L Blood Urea Nitrogen 88 MG/DL Creatinine 3.27 MG/DL Estimat Glomerular Filtration 14 ML/MIN Rate Random Glucose 112 MG/DL Calcium Level 7.2 MG/DL Protein Corrected Calcium 8.2 MG/DL Phosphorus Level 4.0 MG/DL Magnesium Level 1.9 MG/DL Total Bilirubin 0.3 MG/DL Aspartate Amino Transf 45 U/L (AST/SGOT) Alanine Aminotransferase 35 U/L (ALT/SGPT) Alkaline Phosphatase 68 U/L Total Protein 5.2 GM/DL Albumin 1.5 GM/DL Assessment and Plan Problem List: (1) CAD (coronary artery disease) Assessment and Plan: No angina (2) Sinus tachycardia (3) Renal failure Assessment and Plan: slowly improving (4) Confusion (5) Debilitated patient Assessment and Plan: Hospice probably appropriate Assessment and Plan I will sign off/ see prn. Please call if cardiac questions. Problem Qualifiers (1) CAD (coronary artery disease): Qualified Code: I25.10 - Coronary artery disease involving [place] coronary artery of [place] heart without angina pectoris Justin Dominguez MD Dec 03, 2016 09:22
[2016-12-03] MEDS ORDERED: CALCIUM CHLORIDE INJ 2 GM in SODIUM CHLORIDE 0.9% INJ 100 ML IV ONE (10:00)
[2016-12-03] MEDS: PANTOPRAZOLE SOD 40 MG DELAYED RELEASE TAB PO SCH ×2 (10:24→20:02)
[2016-12-03] MEDS: METOPROLOL TARTRATE 25 MG TAB PO SCH ×2 (10:24→20:03)
[2016-12-03] MEDS: levETIRAcetam 500 MG TAB PO SCH ×2 (10:24→20:02)
[2016-12-03] MEDS: SODIUM CHLORIDE 0.9% FLUSH 5 ML FLUSH IV FLUSH SCH ×2 (10:24→20:03)
--- NOTE | 2016-12-03 12:57 | HHI.PR ---
Subjective Remarks Weak and tachycardic. Better today .Talking more. able to eat. O2 sat 93 on RA Objective Vital Signs Date Time Temp Pulse Resp B/P Pulse Ox O2 Delivery O2 Flow Rate FiO2 12/03/16 11:24 78 12/03/16 11:24 98.6 78 19 138/81 94 12/03/16 11:24 96 Room Air 12/03/16 10:02 98 12/03/16 09:00 72 12/03/16 08:14 96 21 12/03/16 07:00 96 Room Air 12/03/16 07:00 98.6 89 19 159/87 94 12/03/16 06:00 68 12/03/16 05:00 79 12/03/16 04:00 96 12/03/16 03:00 94 Room Air 12/03/16 03:00 73 12/03/16 03:00 98.3 73 18 129/76 93 12/03/16 02:00 88 12/03/16 01:00 87 12/03/16 00:00 106 12/02/16 23:00 97.9 89 18 147/86 94 12/02/16 23:00 89 12/02/16 23:00 93 Room Air 12/02/16 22:00 106 12/02/16 21:40 96 Nasal Cannula 2.00 12/02/16 21:00 76 12/02/16 20:00 67 12/02/16 19:00 18 136/75 95 12/02/16 19:00 70 12/02/16 19:00 95 Nasal Cannula 2.00 12/02/16 18:00 77 12/02/16 17:00 74 12/02/16 16:00 78 12/02/16 15:15 98.9 102 14 123/68 94 12/02/16 15:00 94 Nasal Cannula 2.00 12/02/16 15:00 108 12/02/16 15:00 98.9 102 18 123/68 94 12/02/16 14:00 91 12/02/16 13:00 77 I/O 12/02/16 12/02/16 12/02/16 12/03/16 12/03/16 12/03/16 07:00 15:00 23:00 07:00 15:00 23:00 Intake Total 1940 ml 1151 ml 1690 ml Balance 1940 ml 1151 ml 1690 ml Intake Oral 240 ml 900 ml 240 ml IV Total 1700 ml 1450 ml Packed Cells 251 ml # Voids 2 3 4 # Bowel Movements 2 1 1 Result Diagram: 12/03/1663112/03/16631 Objective Remarks This is a thinly built elderly white female who is pale and dyspneic. She has mild edema of the extremities. HEENT: Head normocephalic. Pupils are reactive. Sclerae are injected. Tongue is dry. Throat clear. He has no inflammation. NECK: Supple. No bruits. Minimal venous distension. Trachea midline. No thyroid enlargement. CHEST: Equal movements with percussion note resonant and breath sounds diminished at the periphery with occasional wheezes bilaterally. HEART: Heart sounds are regular S1-S2. Tachycardic. No murmur. No S3. ABDOMEN: Soft, protuberant. No masses or organomegaly or tenderness. EXTREMITIES: No clubbing. There is mild peripheral edema of all extremities with diminished pulses. Reflexes 1 +. The patient however does move both her arms, squeezes weakly with her hands and the skin turgor is good. BREASTS: Exam is deferred. NEUROLOGIC: Weak, and poor effort . Assessment and Plan Assessment and Plan IMPRESSION 1. Bibasilar pulmonary infiltrates with pneumonia and atelectasis left lower lobe. 2. Coronary artery disease and cardiomyopathy. 3. Tachycardic. 4. Acute kidney injury with rhabdomyolysis 5. Metabolic acidosis 6. Encephalopathy Plan : 1. Continue antibiotics. 2. Wean O2 to 2 L. 3. Nebs qid , prn ,Duoneb. 4. Solumedrol 40 mg bid. 5. IS at bedside qid. 6. Labs in am. 7. EZ pap with nebs qid. Nita Cardenas MD Dec 03, 2016 12:57
--- NOTE | 2016-12-03 13:24 | HHI.PR ---
Subjective Remarks deferred entry - patient seen earlier at 10 am. Patient is lethargic but arousable. On statin. Creatinine is trending down. Patient is afebrile Tachycardia resolved Objective Vitals Vital Signs Date Time Temp Pulse Resp B/P Pulse Ox O2 Delivery O2 Flow Rate FiO2 12/03/16 13:07 82 12/03/16 12:00 84 12/03/16 11:24 78 12/03/16 11:24 98.6 78 19 138/81 94 12/03/16 11:24 96 Room Air 12/03/16 10:02 98 12/03/16 09:00 72 12/03/16 08:14 96 21 12/03/16 07:00 96 Room Air 12/03/16 07:00 98.6 89 19 159/87 94 12/03/16 06:00 68 12/03/16 05:00 79 12/03/16 04:00 96 12/03/16 03:00 94 Room Air 12/03/16 03:00 73 12/03/16 03:00 98.3 73 18 129/76 93 12/03/16 02:00 88 12/03/16 01:00 87 12/03/16 00:00 106 12/02/16 23:00 97.9 89 18 147/86 94 12/02/16 23:00 89 12/02/16 23:00 93 Room Air 12/02/16 22:00 106 12/02/16 21:40 96 Nasal Cannula 2.00 12/02/16 21:00 76 12/02/16 20:00 67 12/02/16 19:00 18 136/75 95 12/02/16 19:00 70 12/02/16 19:00 95 Nasal Cannula 2.00 12/02/16 18:00 77 12/02/16 17:00 74 12/02/16 16:00 78 12/02/16 15:15 98.9 102 14 123/68 94 12/02/16 15:00 94 Nasal Cannula 2.00 12/02/16 15:00 108 12/02/16 15:00 98.9 102 18 123/68 94 12/02/16 14:00 91 I/O 12/02/16 12/02/16 12/02/16 12/03/16 12/03/16 12/03/16 07:00 15:00 23:00 07:00 15:00 23:00 Intake Total 1940 ml 1151 ml 1690 ml Balance 1940 ml 1151 ml 1690 ml Intake Oral 240 ml 900 ml 240 ml IV Total 1700 ml 1450 ml Packed Cells 251 ml # Voids 2 3 4 # Bowel Movements 2 1 1 Result Diagram: 12/03/16 0632 12/03/16 0632 Objective Remarks GENERAL: Elderly female appearing older than stated age. SKIN: Cool and dry. Noted deep tissue injury in sacral area. There is a stage I on posterior right heel and left lateral foot. Deep tissue injury seen to right plantar heel and left lateral malleolus. Skin tears noted on the left upper buttock and left posterior flank. HEAD: Normocephalic. EYES: PERRLA, No scleral icterus. No injection or drainage. ENT: No nasal bleeding or discharge. Mucous membranes dry. On partial rebreather NECK: Trachea midline. No JVD. CARDIOVASCULAR: Tachycardic, regular rhythm. RESPIRATORY: No accessory muscle use. Breath sounds equal bilaterally, decreased at bases. Scattered rhonchi bilaterally. GASTROINTESTINAL: Abdomen soft, non-tender, nondistended. No guarding. MUSCULOSKELETAL: Extremities without clubbing, cyanosis, or edema. No obvious deformities. Pain with extension left lower extremity NEUROLOGICAL: Awake and alert, attempts to speak but her voice is very hoarse weakness noticed on the left upper extremity more than compared to the right. Left upper extremity muscle strength is 2/5 in right upper extremity is 4/5. Bilateral lower extremities are 2/5 in muscle strength. Sensation seems to be intact. Patient is awake and alert 2, person and place but not to time. Patient is able to follow commands. No facial droop noticed. A/P Problem List: (1) Seizure disorder ICD Code: G40.909 Status: Acute (2) Encephalopathy ICD Code: G93.40 Status: Acute (3) Consolidation lung ICD Code: J18.1 Status: Acute (4) Hyperlipidemia ICD Code: E78.5 Status: Acute (5) CAD (coronary artery disease) ICD Code: I25.10 Status: Acute (6) Sinus tachycardia ICD Code: R00.0 Status: Acute (7) ALEXEY (acute kidney injury) ICD Code: N17.9 Status: Acute (8) Rhabdomyolysis ICD Code: M62.82 Status: Acute (9) Metabolic acidosis ICD Code: E87.2 Status: Acute (10) Transaminitis ICD Code: R74.0 Status: Acute (11) Melena ICD Code: K92.1 Status: Acute (12) Dehydration ICD Code: E86.0 Status: Resolved (13) Diarrhea ICD Code: R19.7 Status: Resolved (14) Hypothyroidism ICD Code: E03.9 Status: Acute (15) Aspiration pneumonia ICD Code: J69.0 Status: Acute (16) Hypernatremia ICD Code: E87.0 Status: Acute (17) Hypocalcemia ICD Code: E83.51 Status: Acute (18) Decubitus ulcer of sacral area ICD Code: L89.159 Status: Acute (19) Hypothermia ICD Code: T68.XXXA Status: Acute (20) Sepsis ICD Code: A41.9 Status: Acute (21) Weakness ICD Code: R53.1 Status: Acute Assessment and Plan (1) Seizure disorder Plan: This is an elderly female, found unconscious from unknown limited of time , presenting with rhabdomyolysis, hypothermia, altered mental status, with a severe metabolic acidosis. The patient's medical records revealed the patient has a history of seizures, and cardiovascular disease. Patient found unconscious on the floor EEG with abnormal waves. Patient started on Keppra and Phenobarbital by Dr Galaviz from neurology. -CT head 11/26-no intracranial abnormality -CT cervical / moderate degenerative disc disease -C-spine cleared by Dr. Galaviz. -MRI was negative for acute stroke. Follow-up neurology recommendations. (2) Encephalopathy Plan: Patient with episodes of agitation, requiring restraints. Continue to restraint as needed Now wake and alert x2 MRI brain ruled out stroke. (3) Consolidation lung Plan: cxr showed left lower lung infiltrate. Patient on IV antibiotics with IV Levaquin, Iv Flagyl Ct chest shows patchy consolidation of the upper lobes bilaterally, Volume loss consolidation in left lower lobe. -Maintain O2 sat greater than 92%. On 50% ventimask O2, titrate down as tolerated -Bronchodilators every 4 hours when necessary for wheezing -Maintain head of bed elevation 30 patient is an aspiration risk -CT chest with entire left lower lobe consolidation versus atelectasis, left lower lobe atelectasis. Pulmonary recommendations appreciated. The patient placed on IPPB with Mucomyst with nebulized DuoNeb solution 4 times a day. Continue to use incentive spirometer as much as possible. Continue IV Solu-Medrol 40 mg IV every 12 hours as per pulmonary recommendations and physical therapy evaluation. BiPAP could be used in case her blood gases deteriorate. (4) Hyperlipidemia Plan: Continue Statin. Patient on Atorvastatin 80 mg po daily. Check lipid profile (5) CAD (coronary artery disease) Plan: Patient previously on aspirin 81 mg po daily at home. Patient's aspirin was held due to reported dark stools. Patient was on protonix drip now on Protonix BID orally. GI consulted - no evidence of GI bleed - Patient is hemmocult positive will repeat guaaic stool and if negative resume aspirin. Heme occult is pending. (6) Sinus tachycardia Plan: Patient seen by cardiology. tomi daniels after heart rate was in the 120's. Started on oral metoprolol by Dr Dominguez with significant improvement. Likely resolved after IV fluid administration. Continue to monitor vital signs. (7) ALEXEY (acute kidney injury) Plan: Likely due to prerenal azotemia and azotemia as well as rhabdomyolysis. nephrology consulted Continue to monitor BUN and creatinine, history I's and O's. Patient has good urine output. (8) Rhabdomyolysis Plan: Continue IV fluids. Traumatic from lying on the floor. fu total ck which has been trending down. - now 384 (9) Metabolic acidosis Plan: Anion gap metabolic acidosis now resolved after IV fluid administration. Lactic acid normal. (10) Transaminitis Plan: Possibly due to rhabdomyolisis. ALT and AST elevated initially now trending down. AST elevated at 65 --> 45 (11) Melena Plan: Dark stools reported. GI consulted. Previously on Protonix drip, discontinued by GI since patient without evidence of GI bleed. Stool Hemoccult positive. recheck stool guaiac. ---> still pending. (12) Dehydration Plan: Resolved after Iv fluid administration. (13) Diarrhea Plan: Patient with diarrhea previously. Now resolved as per documented RN report. I will continue to monitor. (14) Hypothyroidism Plan: Continue levothyroxine at 150 mg by mouth daily. Patient initially with low TSH at a level of 0.3-9. Thyroxine lower at 2.1. free T4 0.61 Patient likely with euthyroid sick syndrome. (15) Aspiration pneumonia Plan: Continue IV antibiotics to cover for aspiration pneumonia. Chest imaging shows left lower lobe consolidation. Blood cultures negative 5. (16) Hypernatremia Plan: This secondary to dehydration and poor oral intake. Patient currently on D5 water with sodium trending down, level now at 144. Continue to monitor BMP. (17) Hypocalcemia Plan: Likely secondary to poor oral intake. Replace with IV calcium chloride and continue to monitor calcium. (18) Decubitus ulcer of sacral area Plan: Appreciate wound care recommendations. Patient needs [place] cream twice a day which sank apply to coccyx and perianal area. Patient has stage I all sport to her right heel and left lateral foot. Deep tissue injuries seem to right plantar heel and left my lateral malleolus. They need a skin prep twice a day. Trach cover dressings to skin tears on the left upper buttock and left posterior flank. She changed daily when necessary. (19) Hypothermia Plan: - s/p warming. -Continue to monitor temperature. (20) Sepsis Plan: Suspected sepsis given the patient was tachycardic, hypothermic. Present on admission. As per the patient's niece the patient was inside the house in the kitchen and not in the backyard as stated in the emergency department records. Patient being treated with IV fluids, IV antibiotics and has a left lower lobe infiltrate which is possibly consistent with an aspiration pneumonia. (21) Weakness Plan: Physical therapy consulted. Assessment and Plan Prophylaxis: GI Prophylaxis PPI DVT Prophylaxis -- SCDs No chemical prophylaxis given suspected GI bleed. Patient family would like to be made a DNR and transition to hospice care center. We'll discharge patient to hospice care center once bed available Written by Luann Calderon, acting as scribe for Dr. Hauser on 12/03/16 at 13:20. Discharge Planning The documentation accurately reflects the work performed [id number] by me on at 13:20. Problem Qualifiers (1) Hyperlipidemia: Qualified Code: E78.5 - Hyperlipidemia, unspecified hyperlipidemia type (2) CAD (coronary artery disease): Qualified Code: I25.10 - Coronary artery disease involving [place] coronary artery of [place] heart without angina pectoris (3) Rhabdomyolysis: Qualified Code: T79.6XXD - Traumatic rhabdomyolysis, subsequent encounter (4) Aspiration pneumonia: Qualified Code: J69.0 - Aspiration pneumonia of left lower lobe due to gastric secretions (5) Decubitus ulcer of sacral area: Qualified Code: L89.159 - Decubitus ulcer of sacral region, unspecified ulcer stage (6) Hypothermia: Qualified Code: T68.XXXA - Hypothermia, initial encounter (7) Sepsis: Qualified Code: A41.9 - Sepsis, due to unspecified organism Luann Calderon Dec 03, 2016 13:24 Maulik Valladares MD Dec 22, 2016 21:09
[2016-12-03] MEDS: cefTRIAXone INJ 1,000 MG in SODIUM CHLORIDE 0.9% INJ 100 ML IV SCH (20:02)
[2016-12-03] MEDS: ATORVASTATIN 80 MG TAB PO SCH (20:03)
[2016-12-04] VITALS (27 sets, daily range): BP systolic 117–158; BP diastolic 72–98; PULSE 69–126; RESP 16–20; TEMP 97.4–98.7; O2SAT 93–97
[2016-12-04] MEDS: metroNIDAZOLE 500 MG TAB PO SCH ×4 (00:28→23:40)
[2016-12-04] MEDS: CHLORHEXIDINE GLUCONATE 2 % 1 PACK (2 CLOTHS) TOP SCH (04:00)
[2016-12-04] MEDS: LEVOTHYROXINE SODIUM 150 MCG TAB PO SCH (05:51)
[2016-12-04] MEDS: SODIUM CHLORIDE 23.4% INJ 38.5 MEQ in WATER STERILE FOR INJ 1,000 ML IV SCH (05:51)
[2016-12-04 05:57] LABS: BICARBONATE 27.1 MEQ/L (21.0-32.0); CALCIUM-PROTEIN CORRECTED 7.9 MG/DL (8.5-10.1); MAGNESIUM 1.7 MG/DL (1.5-2.5); POTASSIUM 4.1 MEQ/L (3.5-5.1); TOTAL BILIRUBIN ADULT 0.3 MG/DL (0.2-1.0)
[2016-12-04 06:13] LABS: AUTOMATED NEUTROPHIL # 4.9 TH/MM3 (1.8-7.7); BASOPHIL % 0.4 % (0.0-2.0); EOSINOPHIL # 0.1 TH/MM3 (0-0.4); EOSINOPHIL % 1.1 % (0.0-4.0); HEMATOCRIT 30.3 % (35.0-46.0); HEMO FLAGS DIFF FINAL; LYMPHOCYTE # 0.5 TH/MM3 (1.0-4.8); MEAN CELL VOLUME 84.6 FL (80.0-100.0); MEAN CORPUSCULAR HEMOGLOBIN 27.3 PG (27.0-34.0); MEAN CORPUSCULAR HGB CONC 32.3 % (32.0-36.0); MONO % 8.1 % (0.0-8.0); NEUT % 82.4 % (16.0-70.0); PLATELET COUNT 156 TH/MM3 (150-450); RED BLOOD COUNT 3.58 MIL/MM3 (4.00-5.30); RED CELL DISTRIBUTION WIDTH 20.9 % (11.6-17.2)
[2016-12-04] MEDS: RESP: ALBUTEROL 2.5 MG/IPRATROPIUM 0.5 MG NEB (SCH) NEB ×5 (08:06→23:43)
[2016-12-04] MEDS: SODIUM CHLORIDE 0.9% FLUSH 5 ML FLUSH IV FLUSH SCH ×2 (09:00→20:10)
[2016-12-04] MEDS: LEVOFLOXACIN 500 MG PREMIX INJ 100 ML IV SCH (09:07)
[2016-12-04] MEDS: PANTOPRAZOLE SOD 40 MG DELAYED RELEASE TAB PO SCH ×2 (09:09→20:09)
[2016-12-04] MEDS: DOCUSATE SODIUM 100 MG/10 ML UDC G-TUBE SCH ×2 (09:09→20:10)
[2016-12-04] MEDS: levETIRAcetam 500 MG TAB PO SCH ×2 (09:09→20:10)
[2016-12-04] MEDS: METOPROLOL TARTRATE 25 MG TAB PO SCH (09:09)
[2016-12-04] MEDS: methylPREDNISolone SOD SUCC 40 MG/1 ML VIAL IV SCH (09:09)
--- NOTE | 2016-12-04 10:48 | HHI.PR ---
Subjective Remarks Follow-up for mental status changes Still sleepy but arousable, no complaints, did not verbalize any needs. Denies any chest pain or shortness of breath. Nose her name and birthdate. Discussed extensively with patient's niece. Objective Vitals Vital Signs Date Time Temp Pulse Resp B/P Pulse Ox O2 Delivery O2 Flow Rate FiO2 12/04/16 10:00 101 12/04/16 09:00 111 12/04/16 08:00 101 12/04/16 07:00 126 12/04/16 07:00 98.5 123 18 158/98 93 12/04/16 07:00 93 Nasal Cannula 2.00 12/04/16 06:00 106 12/04/16 05:00 72 12/04/16 04:00 69 12/04/16 04:00 98.7 69 18 154/82 95 12/04/16 04:00 Nasal Cannula 2.00 12/04/16 03:00 74 12/04/16 02:00 82 12/04/16 01:00 80 12/04/16 00:00 120 12/04/16 00:00 98.4 120 20 131/76 97 12/04/16 00:00 Nasal Cannula 2.00 12/03/16 23:00 111 12/03/16 22:00 119 12/03/16 21:00 135 12/03/16 20:00 100 12/03/16 20:00 98.7 99 20 114/56 94 12/03/16 20:00 Nasal Cannula 2.00 12/03/16 18:00 132 12/03/16 17:00 98 12/03/16 16:00 85 12/03/16 15:48 96 21 12/03/16 15:00 98.4 113 19 141/98 94 12/03/16 15:00 96 Room Air 12/03/16 15:00 116 12/03/16 14:00 93 12/03/16 13:07 82 12/03/16 12:00 84 12/03/16 11:24 78 12/03/16 11:24 98.6 78 19 138/81 94 12/03/16 11:24 96 Room Air I/O 12/03/16 12/03/16 12/03/16 12/04/16 12/04/16 12/04/16 07:00 15:00 23:00 07:00 15:00 23:00 Intake Total 1690 ml 1600 ml 1600 ml Balance 1690 ml 1600 ml 1600 ml Intake Oral 240 ml 650 ml 600 ml IV Total 1450 ml 950 ml 1000 ml # Voids 4 4 4 # Bowel Movements 1 4 0 Result Diagram: 12/04/1641312/04/16413 Objective Remarks GENERAL: Elderly female appearing older than stated age. SKIN: Cool and dry. Noted deep tissue injury in sacral area. There is a stage I on posterior right heel and left lateral foot. Skin tears noted on the left upper buttock and left posterior flank. EYES: PERRLA, No scleral icterus. No injection or drainage. CARDIOVASCULAR: Regular rate and rhythm. RESPIRATORY: Poor effort, decreased breath sounds bilaterally, occasional crackles on the right, no wheezing. GASTROINTESTINAL: Abdomen soft, mild tenderness on palpation, mildly distended. No guarding. MUSCULOSKELETAL: Extremities without clubbing, cyanosis, 1+ edema. NEUROLOGICAL: Awake and alert, attempts to speak but her voice is very hoarse weakness noticed on the left upper extremity more than compared to the right. Left upper extremity muscle strength is 2/5 in right upper extremity is 4/5. Bilateral lower extremities are 2/5 in muscle strength. Sensation seems to be intact. Patient is awake and alert 2, person and place but not to time. Patient is able to follow commands. No facial droop noticed. A/P Problem List: (1) Seizure disorder ICD Code: G40.909 Status: Acute (2) Encephalopathy ICD Code: G93.40 Status: Acute (3) Consolidation lung ICD Code: J18.1 Status: Acute (4) Hyperlipidemia ICD Code: E78.5 Status: Acute (5) CAD (coronary artery disease) ICD Code: I25.10 Status: Acute (6) Sinus tachycardia ICD Code: R00.0 Status: Acute (7) ALEXEY (acute kidney injury) ICD Code: N17.9 Status: Acute (8) Rhabdomyolysis ICD Code: M62.82 Status: Acute (9) Metabolic acidosis ICD Code: E87.2 Status: Acute (10) Transaminitis ICD Code: R74.0 Status: Acute (11) Melena ICD Code: K92.1 Status: Acute (12) Dehydration ICD Code: E86.0 Status: Resolved (13) Diarrhea ICD Code: R19.7 Status: Resolved (14) Hypothyroidism ICD Code: E03.9 Status: Acute (15) Aspiration pneumonia ICD Code: J69.0 Status: Acute (16) Hypernatremia ICD Code: E87.0 Status: Acute (17) Hypocalcemia ICD Code: E83.51 Status: Acute (18) Decubitus ulcer of sacral area ICD Code: L89.159 Status: Acute (19) Hypothermia ICD Code: T68.XXXA Status: Acute (20) Sepsis ICD Code: A41.9 Status: Acute (21) Weakness ICD Code: R53.1 Status: Acute Assessment and Plan This is a 71-year-old female who was found down on the ground, presented with seizures, rhabdomyolysis, hypothermia, altered mental status and metabolic acidosis. Seizure disorder- MRI of the head negative for stroke, C-spine unremarkable, neurology was consulted, continue Keppra and phenobarbital. EEG showed abnormal waves. Encephalopathy with delirium-requiring restraints, restraints as needed, now awake and alert, MRI negative for stroke. Sepsis secondary to Pneumonia-chest x-ray showed left lower lung infiltrate, likely secondary to aspiration, stop Levaquin, continue ceftriaxone and Flagyl. CT scan of the chest also showed patchy consolidation of the upper lobes bilaterally with volume loss. Continue oxygen support, bronchodilators, there is also left lower lobe atelectasis. Continue incentive spirometry. Pulmonary following. Continue Mucomyst, Solu-Medrol, taper steroids to daily for now, stop after tomorrow. . Dyslipidemia-continue statin Hypertension-uncontrolled increase metoprolol Tachycardia-increase metoprolol. Coronary artery disease- aspirin on hold because of dark stools, Protonix twice a day, GI consulted, no evidence of GI bleeding, guaiac positive, hold aspirin. Sinus tachycardia-status post Cardizem, continue metoprolol, cardiology following, status post IVF. Stop IVF. Acute renal failure-likely secondary to rhabdomyolysis, nephrology consulted, monitor creatinine, good urine output. Improving, monitor BMP. Recheck tomorrow. Rhabdomyolysis-likely secondary to seizures, resolved. Metabolic acidosis-resolved Transaminitis-resolved, likely secondary to rhabdomyolysis Diarrhea-resolved Hypothyroidism-continue Synthroid, recheck TSH Hypernatremia-resolved Hypocalcemia-monitor Generalized weakness-deconditioning, continue physical therapy DVT Prophylaxis -- SCDs No chemical prophylaxis given suspected GI bleed. Discussed with ian Morales, retracted hospice for now, continue DNR/DNI, would like patient to be discharged to SNF, continue physical therapy, consult case management for SNF. I spent 35 minutes [id number] with the patient and patient's niece Jordana over the phone and/or on the cristobal discussing the patient's disposition, prognosis and plan of care with his/her caregivers. Over half of time spent was devoted to counseling the patient regarding placement, pulse of care and coordinating care with caregivers and case management. Problem Qualifiers (1) Hyperlipidemia: Qualified Code: E78.5 - Hyperlipidemia, unspecified hyperlipidemia type (2) CAD (coronary artery disease): Qualified Code: I25.10 - Coronary artery disease involving [place] coronary artery of [place] heart without angina pectoris (3) Rhabdomyolysis: Qualified Code: T79.6XXD - Traumatic rhabdomyolysis, subsequent encounter (4) Aspiration pneumonia: Qualified Code: J69.0 - Aspiration pneumonia of left lower lobe due to gastric secretions (5) Decubitus ulcer of sacral area: Qualified Code: L89.159 - Decubitus ulcer of sacral region, unspecified ulcer stage (6) Hypothermia: Qualified Code: T68.XXXA - Hypothermia, initial encounter (7) Sepsis: Qualified Code: A41.9 - Sepsis, due to unspecified organism Shaji Monroe MD Dec 04, 2016 10:48
[2016-12-04] MEDS ORDERED: DILTIAZEM HCL 25 MG/5 ML VIAL IV PRN (11:45)
[2016-12-04] MEDS: traMADol HCL 50 MG TAB PO PRN (13:16)
[2016-12-04] MEDS: cefTRIAXone INJ 1,000 MG in SODIUM CHLORIDE 0.9% INJ 100 ML IV SCH (20:09)
[2016-12-04] MEDS: ATORVASTATIN 80 MG TAB PO SCH (20:10)
[2016-12-04] MEDS: METOPROLOL TARTRATE 50 MG TAB PO SCH (20:10)
[2016-12-05] VITALS (23 sets, daily range): BP systolic 93–150; BP diastolic 49–95; PULSE 69–113; RESP 16–18; TEMP 98.1–98.8; O2SAT 93–96
[2016-12-05] MEDS: CHLORHEXIDINE GLUCONATE 2 % 1 PACK (2 CLOTHS) TOP SCH (04:00)
[2016-12-05] MEDS: LEVOTHYROXINE SODIUM 150 MCG TAB PO SCH (05:27)
[2016-12-05 05:55] LABS: BICARBONATE 27.1 MEQ/L (21.0-32.0); PHENOBARBITAL 32.7 MCG/ML (15.0-40.0); POTASSIUM 3.9 MEQ/L (3.5-5.1)
[2016-12-05 06:12] LABS: CALCIUM-PROTEIN CORRECTED 8.2 MG/DL (8.5-10.1)
[2016-12-05] MEDS: DOCUSATE SODIUM 100 MG/10 ML UDC G-TUBE SCH ×2 (08:00→20:30)
[2016-12-05] MEDS: RESP: ALBUTEROL 2.5 MG/IPRATROPIUM 0.5 MG NEB (SCH) NEB ×3 (08:00→15:20)
[2016-12-05] MEDS ORDERED: methylPREDNISolone SOD SUCC 40 MG/1 ML VIAL IV SCH (09:00)
[2016-12-05] MEDS: metroNIDAZOLE 500 MG TAB PO SCH ×2 (09:38→17:01)
[2016-12-05] MEDS: PANTOPRAZOLE SOD 40 MG DELAYED RELEASE TAB PO SCH ×2 (09:39→20:30)
[2016-12-05] MEDS: METOPROLOL TARTRATE 50 MG TAB PO SCH ×2 (09:39→20:30)
[2016-12-05] MEDS: levETIRAcetam 500 MG TAB PO SCH ×2 (09:39→20:30)
[2016-12-05] MEDS: SODIUM CHLORIDE 0.9% FLUSH 5 ML FLUSH IV FLUSH SCH ×2 (09:41→20:30)
[2016-12-05] MEDS ORDERED: predniSONE 20 MG TAB PO SCH (09:45)
--- NOTE | 2016-12-05 10:17 | RADRPT ---
EXAM DATE/TIME: 12/05/2016 09:43 [facility] COMPARISON: CHEST SINGLE AP, November 29, 2016, 7:12. INDICATIONS : Evaluate for effusion. MEDICAL HISTORY : None. SURGICAL HISTORY : CABG. ENCOUNTER: Initial ACUITY: 1 day PAIN SCORE: 0/10 LOCATION: Bilateral chest FINDINGS: A single view of the chest demonstrates small bilateral pleural effusions with bibasilar consolidatio ns pneumonia versus atelectasis. 4 intact sternal wires. The cardiomediastinal contours are unremark able. Osseous structures are intact. Loose body overlies right shoulder. Marked arthritis both gleno humeral joints CONCLUSION: Bilateral lower lobe consolidations with pleural effusions, pneumonia versus atelectasis. Edmund Oconnell MD on December 05, 2016 at 10:14 Board Certified Radiologist. This report was verified electronically.
--- NOTE | 2016-12-05 10:21 | HHI.PR ---
Subjective Remarks Follow-up for altered mental status, ear pain Yesterday patient complaining of ear pain, left ear, no changes in hearing. 10 over 10. Now better with tramadol. No ear discharge. Shortness of breath better, afebrile. Patient more awake today. Objective Vitals Vital Signs Date Time Temp Pulse Resp B/P Pulse Ox O2 Delivery O2 Flow Rate FiO2 12/05/16 09:00 106 12/05/16 08:00 109 12/05/16 07:00 98.3 103 18 144/95 95 12/05/16 07:00 100 12/05/16 07:00 95 Nasal Cannula 2.00 12/05/16 04:00 98.4 73 18 126/69 94 12/05/16 04:00 Nasal Cannula 2.00 12/05/16 04:00 73 12/05/16 03:00 78 12/05/16 02:00 97 12/05/16 00:00 Nasal Cannula 2.00 12/05/16 00:00 103 12/05/16 00:00 98.2 103 18 116/65 96 12/04/16 23:46 96 Nasal Cannula 1.00 12/04/16 23:00 95 12/04/16 22:00 93 12/04/16 21:10 95 Nasal Cannula 2.00 12/04/16 21:00 91 12/04/16 20:00 Nasal Cannula 2.00 12/04/16 20:00 77 12/04/16 20:00 98.7 77 20 127/72 95 12/04/16 18:00 72 12/04/16 17:00 104 12/04/16 16:00 111 12/04/16 15:46 95 Nasal Cannula 1.00 12/04/16 15:00 110 12/04/16 15:00 97.4 89 16 117/73 96 12/04/16 15:00 96 Nasal Cannula 2.00 12/04/16 14:00 77 12/04/16 13:00 106 12/04/16 12:00 96 12/04/16 11:00 95 Nasal Cannula 2.00 12/04/16 11:00 97.6 122 20 156/84 95 12/04/16 11:00 116 I/O 12/04/16 12/04/16 12/04/16 12/05/16 12/05/1612/05/17 07:00 15:00 23:00 07:00 15:00 23:00 Intake Total 1600 ml 840 ml 482 ml Balance 1600 ml 840 ml 482 ml Intake Oral 600 ml 840 ml 480 ml IV Total 1000 ml 2 ml # Voids 4 3 3 # Bowel Movements 0 1 0 Result Diagram: 12/04/16 0414 12/05/16 0422 Objective Remarks GENERAL: Elderly female appearing older than stated age. SKIN: Cool and dry. Noted deep tissue injury in sacral area. There is a stage I on posterior right heel and left lateral foot. Skin tears noted on the left upper buttock and left posterior flank. EYES: PERRLA, No scleral icterus. No injection or drainage. Right ear, normal cone of light, mild cerumen. Left ear, cerumen, mild middle ear effusion, positive cone of light. CARDIOVASCULAR: Regular rate and rhythm. RESPIRATORY: Poor effort, decreased breath sounds bilaterally, occasional crackles on the right, no wheezing. GASTROINTESTINAL: Abdomen soft, mild tenderness on palpation, mildly distended. No guarding. MUSCULOSKELETAL: Extremities without clubbing, cyanosis, 1+ edema. NEUROLOGICAL: Awake, alert, oriented to place, person, attempts to speak but her voice is very hoarse weakness noticed on the left upper extremity more than compared to the right. Left upper extremity muscle strength is 2/5 in right upper extremity is 4/5. Bilateral lower extremities are 2/5 in muscle strength. Follows commands, no facial droop. A/P Problem List: (1) Seizure disorder ICD Code: G40.909 Status: Acute (2) Encephalopathy ICD Code: G93.40 Status: Acute (3) Consolidation lung ICD Code: J18.1 Status: Acute (4) Hyperlipidemia ICD Code: E78.5 Status: Acute (5) CAD (coronary artery disease) ICD Code: I25.10 Status: Acute (6) Sinus tachycardia ICD Code: R00.0 Status: Acute (7) ALEXEY (acute kidney injury) ICD Code: N17.9 Status: Acute (8) Rhabdomyolysis ICD Code: M62.82 Status: Acute (9) Metabolic acidosis ICD Code: E87.2 Status: Acute (10) Transaminitis ICD Code: R74.0 Status: Acute (11) Melena ICD Code: K92.1 Status: Acute (12) Dehydration ICD Code: E86.0 Status: Resolved (13) Diarrhea ICD Code: R19.7 Status: Resolved (14) Hypothyroidism ICD Code: E03.9 Status: Acute (15) Aspiration pneumonia ICD Code: J69.0 Status: Acute (16) Hypernatremia ICD Code: E87.0 Status: Acute (17) Hypocalcemia ICD Code: E83.51 Status: Acute (18) Decubitus ulcer of sacral area ICD Code: L89.159 Status: Acute (19) Hypothermia ICD Code: T68.XXXA Status: Acute (20) Sepsis ICD Code: A41.9 Status: Acute (21) Weakness ICD Code: R53.1 Status: Acute Assessment and Plan This is a 71-year-old female who was found down on the ground, presented with seizures, rhabdomyolysis, hypothermia, altered mental status and metabolic acidosis. Seizure disorder- MRI of the head negative for stroke, C-spine unremarkable, continue Keppra and phenobarbital. EEG showed abnormal waves. Phenobarbital levels within normal limits. Encephalopathy with delirium-requiring restraints, restraints as needed, now awake and alert, MRI negative for stroke. Sepsis secondary to Pneumonia-chest x-ray showed left lower lung infiltrate, likely secondary to aspiration, finished Levaquin, continue Flagyl, switch ceftriaxone to Ceftin. CT scan of the chest also showed patchy consolidation of the upper lobes bilaterally with volume loss. Continue oxygen support, bronchodilators, there is also left lower lobe atelectasis. Continue incentive spirometry. Pulmonary following. Continue Mucomyst, Solu-Medrol, taper steroids to daily for now, continue to taper. Repeat chest x-ray today, done, personally reviewed, shows right sided middle lobe and lower lobe infiltrates.? Better, still some element of volume overload, start Lasix orally Dyslipidemia-continue statin Hypertension-u better, continue metoprolol Tachycardia- continue metoprolol. Left ear pain-start Auralgan, try Sudafed if no relief. Coronary artery disease- aspirin on hold because of dark stools, Protonix twice a day, GI consulted, no evidence of GI bleeding, guaiac positive, hold aspirin. Sinus tachycardia-status post Cardizem, continue metoprolol, cardiology following, status post IVF. Stop IVF. Acute renal failure-likely secondary to rhabdomyolysis, nephrology consulted, monitor creatinine, good urine output. Improving, monitor BMP. BMP stable. Start Lasix orally, monitor BMP. Rhabdomyolysis-likely secondary to seizures, resolved. Metabolic acidosis-resolved Transaminitis-resolved, likely secondary to rhabdomyolysis Diarrhea-resolved Hypothyroidism-continue Synthroid, TSH is high, check free T3 and free T4, increase Synthroid. Hypernatremia-resolved Hypocalcemia-monitor Generalized weakness-deconditioning, continue physical therapy Hypocalcemia-replaced Hypomagnesemia-replaced, recheck DVT Prophylaxis -- SCDs No chemical prophylaxis given suspected GI bleed. Problem Qualifiers (1) Hyperlipidemia: Qualified Code: E78.5 - Hyperlipidemia, unspecified hyperlipidemia type (2) CAD (coronary artery disease): Qualified Code: I25.10 - Coronary artery disease involving [place] coronary artery of [place] heart without angina pectoris (3) Rhabdomyolysis: Qualified Code: T79.6XXD - Traumatic rhabdomyolysis, subsequent encounter (4) Aspiration pneumonia: Qualified Code: J69.0 - Aspiration pneumonia of left lower lobe due to gastric secretions (5) Decubitus ulcer of sacral area: Qualified Code: L89.159 - Decubitus ulcer of sacral region, unspecified ulcer stage (6) Hypothermia: Qualified Code: T68.XXXA - Hypothermia, initial encounter (7) Sepsis: Qualified Code: A41.9 - Sepsis, due to unspecified organism Shaji Monroe MD Dec 05, 2016 10:21
[2016-12-05 10:33] LABS: FREE T3 0.63 PG/ML (2.18-3.98); FREE T4 0.63 NG/DL (0.76-1.46); MAGNESIUM 1.7 MG/DL (1.5-2.5)
[2016-12-05] MEDS ORDERED: CALCIUM GLUCONATE INJ 1 GM in DEXTROSE 5% IN WATER 100ML INJ 100 ML IV ONE ×2 (11:00)
[2016-12-05] MEDS: traMADol HCL 50 MG TAB PO PRN (12:13)
[2016-12-05] MEDS: DICLOFENAC SOD 0.1% OPHT SOLN 2.5 ML BTL SCH ×2 (12:14→17:02)
[2016-12-05] MEDS: FUROSEMIDE 20 MG TAB PO SCH (12:15)
[2016-12-05] MEDS: ATORVASTATIN 80 MG TAB PO SCH (20:30)
[2016-12-05] MEDS: CEFUROXIME AXETIL 500 MG TAB PO SCH (20:30)
[2016-12-06] VITALS (14 sets, daily range): BP systolic 111–146; BP diastolic 57–84; PULSE 67–118; RESP 16–18; TEMP 98.2–98.7; O2SAT 92–96
[2016-12-06] MEDS: RESP: ALBUTEROL 2.5 MG/IPRATROPIUM 0.5 MG NEB (SCH) NEB ×4 (00:02→12:00)
[2016-12-06] MEDS: traMADol HCL 50 MG TAB PO PRN (00:45)
[2016-12-06] MEDS: metroNIDAZOLE 500 MG TAB PO SCH ×2 (00:45→08:03)
[2016-12-06] MEDS: DICLOFENAC SOD 0.1% OPHT SOLN 2.5 ML BTL SCH ×3 (00:47→11:21)
[2016-12-06] MEDS: CHLORHEXIDINE GLUCONATE 2 % 1 PACK (2 CLOTHS) TOP SCH (04:00)
[2016-12-06] MEDS ORDERED: LEVOTHYROXINE SODIUM 150 MCG TAB PO SCH (06:00)
[2016-12-06] MEDS ORDERED: LEVOTHYROXINE SODIUM 25 MCG TAB PO SCH (06:00)
[2016-12-06 07:17] LABS: BICARBONATE 26.2 MEQ/L (21.0-32.0); POTASSIUM 3.9 MEQ/L (3.5-5.1)
[2016-12-06 07:33] LABS: CALCIUM-PROTEIN CORRECTED 8.3 MG/DL (8.5-10.1)
[2016-12-06] MEDS: DOCUSATE SODIUM 100 MG/10 ML UDC G-TUBE SCH (08:00)
[2016-12-06] MEDS: FUROSEMIDE 20 MG TAB PO SCH (08:03)
[2016-12-06] MEDS: levETIRAcetam 500 MG TAB PO SCH (08:03)
[2016-12-06] MEDS: PANTOPRAZOLE SOD 40 MG DELAYED RELEASE TAB PO SCH (08:03)
[2016-12-06] MEDS: METOPROLOL TARTRATE 50 MG TAB PO SCH (08:03)
[2016-12-06] MEDS: CEFUROXIME AXETIL 500 MG TAB PO SCH (08:04)
[2016-12-06] MEDS: SODIUM CHLORIDE 0.9% FLUSH 5 ML FLUSH IV FLUSH SCH (08:04)
[2016-12-06] MEDS ORDERED: predniSONE 20 MG TAB PO SCH (09:00)
[2016-12-06] MEDS ORDERED: PHENO60 PO ×2 (10:03→13:07)
[2016-12-06] MEDS ORDERED: CEFT500T3 PO (10:03)
[2016-12-06] MEDS ORDERED: PRED20 PO (10:03)
[2016-12-06] MEDS ORDERED: LEVO.15 PO (10:03)
[2016-12-06] MEDS ORDERED: IPRASOL NEB (10:03)
[2016-12-06] MEDS ORDERED: METO-309 PO (10:03)
[2016-12-06] MEDS ORDERED: DOCU100S G-TUBE (10:03)
[2016-12-06] MEDS ORDERED: METR-1 PO (10:03)
[2016-12-06] MEDS ORDERED: LEVE500 PO (10:03)
[2016-12-06] MEDS ORDERED: PANT40TA3 PO (10:03)
[2016-12-06] MEDS ORDERED: ULTR50TA5 PO (10:03)
[2016-12-06] MEDS ORDERED: FURO20TA PO (10:03)
[2016-12-06] MEDS ORDERED: DICL0.1S (10:03)
[2016-12-06] MEDS ORDERED: LEVO25TA4 PO (10:03)
--- NOTE | 2016-12-06 10:04 | HHI.DS ---
Discharge Summary Admission Date Nov 26, 2016 at 18:24 Discharge Date: Dec 06, 2016 Admitting Diagnosis new onset renal failure,uremic encephalopathy,hypothermia (1) Seizure disorder ICD Code: G40.909 Diagnosis: Principal (2) Encephalopathy ICD Code: G93.40 Diagnosis: Principal (3) Consolidation lung ICD Code: J18.1 Diagnosis: Principal (4) Hyperlipidemia ICD Code: E78.5 Diagnosis: Secondary (5) CAD (coronary artery disease) ICD Code: I25.10 Diagnosis: Secondary (6) Sinus tachycardia ICD Code: R00.0 Diagnosis: Secondary (7) ALEXEY (acute kidney injury) ICD Code: N17.9 Diagnosis: Secondary (8) Rhabdomyolysis ICD Code: M62.82 Diagnosis: Secondary (9) Metabolic acidosis ICD Code: E87.2 Diagnosis: Secondary (10) Transaminitis ICD Code: R74.0 Diagnosis: Secondary (11) Melena ICD Code: K92.1 Diagnosis: Secondary (12) Dehydration ICD Code: E86.0 Diagnosis: Secondary (13) Diarrhea ICD Code: R19.7 Diagnosis: Secondary (14) Hypothyroidism ICD Code: E03.9 Diagnosis: Secondary (15) Aspiration pneumonia ICD Code: J69.0 Diagnosis: Secondary (16) Hypernatremia ICD Code: E87.0 Diagnosis: Secondary (17) Hypocalcemia ICD Code: E83.51 Diagnosis: Secondary (18) Decubitus ulcer of sacral area ICD Code: L89.159 Diagnosis: Secondary (19) Hypothermia ICD Code: T68.XXXA Diagnosis: Secondary (20) Sepsis ICD Code: A41.9 Diagnosis: Secondary (21) Weakness ICD Code: R53.1 Diagnosis: Secondary Procedures Please see notes Brief History - From Admission Is elderly female found down in her backyard her next door neighbor. It is unknown the amount of time the patient had been lying on the ground. Patient was noted to have an ulcer in the occipital region and the sacral region. The patient was noted to be hypothermic 86.0, with altered mental status. The patient was transferred to [facility] ED at which time imaging studies and laboratory studies were performed. The patient was noted to have a pH of 6.99, with a bicarbonate level of 6, and rhabdomyolysis with a CK level will 4490. Patient received approximately 4 L of IV fluids, 2 A of sodium bicarbonate, nephrology was consulted, and rewarming was instituted. Critical care medicine was consulted for management and treatment. Upon my arrival to the ED, the patient was alert to name, and stated her name, slightly dysarthric, normotensive, and following motor commands. History PFSH Past Medical History Arthritis: Yes Blood Disorders: No Heart Rhythm Problems: Yes (POSS A FIB) Cancer: Yes (BREAST 2010) High Cholesterol: Yes Chest Pain: No Congestive Heart Failure: No Diminished Hearing: No GERD: No Glaucoma: No Headaches: Yes Hepatitis: No Hiatal Hernia: No Hypertension: No Myocardial Infarction: No Seizures: Yes Thyroid Disease: Yes Ulcer: No Menopausal: Yes Past Surgical History Abdominal Surgery: Yes (GALLBLADDER AND TRIPLE BYPASS) Ear Surgery: No Oral Surgery: No Other Surgery: Yes Social History Alcohol Use: No Tobacco Use: No Substance Use: No Allergies-Medications Allergies-Medications (Allergen,Severity, Reaction): Coded Allergies: Codeine (Verified Allergy, Severe, 09/04/16) Demerol (Verified Allergy, Severe, 09/04/16) Iodine (Verified Allergy, Severe, hives, 09/04/16) Vitamin C (Verified Allergy, Severe, Rash, 09/04/16) RASH RASH Reported Meds & Prescriptions Reported Meds & Active Scripts Active Reported Centrum (Multivitamins) Tab 1 Tab PO DAILY [Pramiprexole] 1.5 Mg PO HS Aspir-Low (Aspirin) 81 Mg Tab 81 Mg PO DAILY Lipitor (Atorvastatin Calcium) 80 Mg Tab 80 Mg PO DAILY Calcium 600 Mg Tab 600 Mg PO DAILY Mysoline (Primidone) 250 Mg Tab 375 Mg PO BID Levothyroxine 100 mcg (Levothyroxine Sodium) 100 Mcg Tab 100 Mcg PO DAILY ROS Review of Systems ROS Limitations: Clinical Condition, Altered Mental Status, Poor Historian CBC/BMP: 12/04/16 0414 12/06/16 0620 Significant Findings Laboratory Tests Test 12/04/16 12/05/16 12/06/16 04:14 04:22 06:20 Red Blood Count 3.58 MIL/MM3 (4.00-5.30) Hemoglobin 9.8 GM/DL (11.6-15.3) Hematocrit 30.3 % (35.0-46.0) Red Cell Distribution Width 20.9 % (11.6-17.2) Neutrophils (%) (Auto) 82.4 % (16.0-70.0) Lymphocytes (%) (Auto) 8.0 % (9.0-44.0) Monocytes (%) (Auto) 8.1 % (0.0-8.0) Lymphocytes # (Auto) 0.5 TH/MM3 (1.0-4.8) Blood Urea Nitrogen 83 MG/DL (7-18) 73 MG/DL (7-18) 65 MG/DL (7-18) Creatinine 2.92 MG/DL 2.70 MG/DL 2.37 MG/DL (0.50-1.00) (0.50-1.00) (0.50-1.00) Estimat Glomerular Filtration 16 ML/MIN (>89) 17 ML/MIN (>89) 20 ML/MIN (>89) Rate Calcium Level 6.9 MG/DL 7.0 MG/DL 7.2 MG/DL (8.5-10.1) (8.5-10.1) (8.5-10.1) Protein Corrected Calcium 7.9 MG/DL 8.2 MG/DL 8.3 MG/DL (8.5-10.1) (8.5-10.1) (8.5-10.1) Aspartate Amino Transf 48 U/L (15-37) (AST/SGOT) Total Protein 5.1 GM/DL 4.9 GM/DL 5.1 GM/DL (6.4-8.2) (6.4-8.2) (6.4-8.2) Albumin 1.6 GM/DL (3.4-5.0) Random Glucose 111 MG/DL (74-106) Free Thyroxine 0.63 NG/DL (0.76-1.46) Free Triiodothyronine (T3) 0.63 PG/ML pg/dL (2.18-3.98) Thyroid Stimulating Hormone 35.600 uIU/ML 3rd Gen (0.358-3.740) PE at Discharge GENERAL: Elderly female appearing older than stated age. SKIN: Cool and dry. Noted deep tissue injury in sacral area. There is a stage I on posterior right heel and left lateral foot. Skin tears noted on the left upper buttock and left posterior flank. EYES: PERRLA, No scleral icterus. No injection or drainage. Right ear, normal cone of light, mild cerumen. Left ear, cerumen, mild middle ear effusion, positive cone of light. CARDIOVASCULAR: Regular rate and rhythm. RESPIRATORY: Poor effort, decreased breath sounds bilaterally, occasional crackles on the right, no wheezing. GASTROINTESTINAL: Abdomen soft, mild tenderness on palpation, mildly distended. No guarding. MUSCULOSKELETAL: Extremities without clubbing, cyanosis, 1+ edema. NEUROLOGICAL: Awake, alert, oriented to place, person, attempts to speak but her voice is very hoarse weakness noticed on the left upper extremity more than compared to the right. Left upper extremity muscle strength is 2/5 in right upper extremity is 4/5. Bilateral lower extremities are 2/5 in muscle strength. Follows commands, no facial droop. Hospital Course This is a 71-year-old female who was found down on the ground, presented with seizures, rhabdomyolysis, hypothermia, altered mental status and metabolic acidosis. Patient was found to have sepsis secondary to pneumonia, she initially admitted at the intensive care unit. Please refer to the notes from the automatic chief regarding patient's stay in the intensive care unit. On admission,chest x-ray showed left lower lung infiltrate, likely secondary to aspiration, patient was started on empiric antibiotics, she finished Levaquin, she will continue Flagyl, she was on ceftriaxone which will be switched to Ceftin. CT scan of the chest also showed patchy consolidation of the upper lobes bilaterally with volume loss. Continue oxygen support, bronchodilators, there is also left lower lobe atelectasis. Continue incentive spirometry. Pulmonary was also consulted. Repeat chest x-ray showed improvement of infiltrates, she was also given Lasix. With regards to her seizures, MRI of the head was negative for stroke, C-spine unremarkable, continue Keppra and phenobarbital. EEG showed abnormal waves. Phenobarbital levels within normal limits. With continued progress and improvement, patient was transferred to the hospitalist service. There was also concern for GI bleeding because of dark colored stools, guaiac was positive, aspirin was held after GI consultation. Patient was started on Protonix. She also went into sinus tachycardia, patient was pacing Cardizem which was then switched to metoprolol. Cardiology was consulted. Acute renal failure which was secondary to rhabdomyolysis resolved with volume resuscitation. Nephrology was also involved. After a few days, patient continued to improve, decision was made with the daughter still discharge the patient to rehabilitation for generalized weakness. Pt Condition on Discharge: Good Discharge Disposition: Discharge to SNF Discharge Time: > 30 minutes Discharge Instructions DIET: Follow Instructions for: Heart Healthy Diet Additional Diet Instructions: mechanical soft Activities you can perform: Regular-No Restrictions New Orders: BASIC METABOLIC PROF - 2-3 Days New Medications: Cefuroxime (Ceftin) 500 Mg Tab 500 MG PO Q12HR pna #10 TAB Diclofenac Opth Drops (Diclofenac Opth Drops) 0.1% Soln 1 DROP .XX Q6HR left ear pain #1 ML Docusate Sodium Liq (Docusate Sodium Liq) 50 Mg/5 Ml Liq 100 MG G-TUBE Q12H constipation #60 ML Furosemide (Furosemide) 20 Mg Tab 20 MG PO qod fluid overload Days 15 TAB Ipratropium-Albuterol Neb (Duoneb) 0.5-2.5 Mg/3 Ml Neb 1 AMPULE NEB Q8HR NEB Shortness of Breath #30 ML Levetiracetam (Keppra) 500 Mg Tab 500 MG PO BID seizures #60 TAB Levothyroxine (Synthroid) 150 Mcg Tab 150 MCG PO DAILY@06 thyroid #30 TAB Levothyroxine (Levothyroxine) 25 Mcg Tab 25 MCG PO DAILY@06 thyroid #30 TAB Metoprolol Tartrate (Lopressor) 50 Mg Tab 50 MG PO Q12HR htn #60 TAB Metronidazole (Flagyl) 500 Mg Tab 500 MG PO Q8H pna #15 TAB Pantoprazole (Pantoprazole) 40 Mg Tab 40 MG PO Q12HR Gi #60 TAB Phenobarbital (Phenobarbital) 64.8 Mg Tab 60 MG PO Q12HR seizures #60 TAB Prednisone (Prednisone) 20 Mg Tab 10 MG PO DAILY steroid #5 TAB Tramadol (Ultram) 50 Mg Tab 50 MG PO Q12H PRN pain 3-10 #10 TAB Continued Medications: Atorvastatin (Atorvastatin) 80 Mg Tab 80 MG PO HS Cholesterol Management #30 Ref 0 TAB Levothyroxine (Levothyroxine) 150 Mcg Tab 150 MCG PO DAILY Thyroid #30 Ref 0 TAB Multiple Vitamins W/ Minerals (Centrum) 1 Tab 1 TAB PO DAILY Nutritional Supplement Ref 0 TAB Discontinued Medications: Aspirin DR (Aspirin 81) 81 Mg Tabdr 81 MG PO DAILY Ref 0 TAB Diltiazem CD 24 HR (Cardizem CD 24 HR) 240 Mg Caper 240 MG PO DAILY Levocetirizine (Levocetirizine) 5 Mg Tab 5 MG PO DAILY PRN prn Metoprolol Tartrate (Metoprolol Tartrate) 25 Mg Tab 25 MG PO BID Pramipexole (Pramipexole) 1.5 Mg Tab 1.5 MG PO HS Parkinson Disease Mgmt Primidone (Mysoline) 250 Mg Tab 375 MG PO BID Control Seizures #90 Ref 0 TAB Shaji Monroe MD Dec 06, 2016 10:03
--- NOTE | 2016-12-06 17:16 | HHI.HCPN ---
Reason for visit a. To assist with evaluation and management of symptoms including: pain, anxiety, dyspnea b. To assist medical decision maker(s) with: better understanding of current medical conditions; weighing benefits/burdens of medical treatment options; making medical treatment decisions. . (Doreen Prado) Subjective/Interval History Follow up for pain, anxiety, dyspnea and clarification of medical treatment goals. Patient seen and assessed in room 244 this morning. Awake. Oriented to person and place. Denies pain at examination, no acute distress observed. Remains weak. Appetite fair, approximately 30%. MRI of the head negative for stroke, C-spine with no acute findings. Plan to continue Keppra and Phenobarbital. Phenobarbital levels within therapeutic range. EEG showed cephalopathy and abnormal waves, possibility of intermittent seizure activity. Kidney functioning slowly improving status post acute kidney injury with rhabdomyolysis. 12/06/16: BUN 65, creatinine 2.37, GFR 20. Plan to follow up with nephrology outpatient. Monitor BMP. Follow up chest x-ray on 12/05/16 showing bilateral lower lobe consolidations with pleural effusions, pneumonia versus atelectasis. Patient started on furosemide secondary to volume overload. Afebrile. Patient will continue Flagyl , ceftriaxone switched to Ceftin. Plan to continue supplemental oxygen, bronchodilators, Mucomyst and taper steroids. Patient to be discharged, likely today, to [facility] for short-term rehabilitation. . Family/friend interactions Spoke with patient's niece, Carmen. Update provided on patient's clinical condition, reviewed diagnostic data and clarify medical treatment goals. Patient being discharged to [facility] today for short-term rehabilitation. Family would like to move the patient to [place] when she is strong enough to be closer to family. If the patient fails rehabilitation, patient and family would consider transitioning to comfort focus goals at that time. . (Doreen Prado) Advance Directives Living Will: Copy in medical record Health Care Surrogate: Copy in medical record Durable Power of Gunite [employer]er: Copy in medical record (Doreen Prado) Advance Directive Specifics Date completed: 04/13/16 . Health Care Surrogate(s): Patient's sister (Nidhi Jiménez) is designated as the primary HCS and her niece (Carmen Betancourt) is the alternate HCS. A notarized document was completed 11/30/16 from the patient's sister relinquishing her rights as the HCS and POA. . Documented care wishes: Living Will completed 04/13/16 . The patient states if she is found to have terminal or incurable or irreversible mental/physical condition and if her attending or treating physician and another consulting physician determined there is no medical or reasonable expectation or probability of her recovery from such conditions, she directs life-prolonging procedures be withheld or withdrawn and the application of such procedures would merely prolong artificially process of dying and that she be permitted to naturally with only the administration of medication or the performance of any medical procedure necessary to provide her with comfort, care or to alleviate pain. She does not wish to prolong life in the event she has a terminal condition, an end-stage condition or is in a persistent vegetative state. She specifically does not want: == Cardiac resuscitation == Fluids by tube == Hydration/water == Mechanical respiration == Nutrition/food == Artificial feeding . Significant change in goals: Patient being discharged to [facility] for short-term rehabilitation. . (Doreen Prado) Objective Vital Signs Date Time Temp Pulse Resp B/P Pulse Ox O2 Delivery O2 Flow Rate FiO2 12/06/16 12:00 98.6 108 16 146/84 93 12/06/16 12:00 75 12/06/16 12:00 Room Air 12/06/16 11:00 67 12/06/16 10:00 103 12/06/16 09:00 79 12/06/16 08:00 98.7 118 16 131/77 93 12/06/16 08:00 100 12/06/16 08:00 Nasal Cannula 2.00 21 12/06/16 07:23 92 Nasal Cannula 1.00 12/06/16 07:00 104 12/06/16 06:00 89 12/06/16 05:00 81 12/06/16 04:00 88 12/06/16 04:00 Nasal Cannula 2.00 12/06/16 04:00 98.2 88 18 111/57 96 12/06/16 03:00 84 12/06/16 02:00 80 12/06/16 01:00 89 12/06/16 00:00 69 12/05/16 23:40 Nasal Cannula 2.00 12/05/16 23:40 98.6 69 18 93/49 95 12/05/16 23:00 74 12/05/16 22:00 78 12/05/16 21:00 103 12/05/16 20:00 110 12/05/16 20:00 Nasal Cannula 2.00 12/05/16 20:00 98.3 110 18 123/64 94 12/05/16 18:00 112 12/05/16 17:00 102 Intake & Output 12/06/16 12/06/16 07:00 19:00 Intake Total 482 ml Balance 482 ml Intake Oral 480 ml IV Total 2 ml # Voids 3 # Bowel Movements 0 . Physical Exam CONSTITUTIONAL/GENERAL: This is a frail, female patient who appears older than her stated age, in no apparent distress. TUBES/LINES/DRAINS: PIV x 1 SKIN: No jaundice, rashes, or lesions. Skin temperature appropriate. Not diaphoretic. HEAD: Atraumatic. Normocephalic. EYES: Pupils equal and round and reactive. Extraocular motions intact. No scleral icterus. No injection or drainage. Fundi not examined. ENT: Hearing grossly normal. Nose without bleeding or purulent drainage. NECK: Trachea midline. Supple, nontender. No palpable thyroid enlargement or nodularity. CARDIOVASCULAR: Tachycardic. No murmurs, gallops, or rubs. No JVD. Peripheral pulses symmetric. RESPIRATORY/CHEST: Breath sounds diminished bilaterally. GASTROINTESTINAL: Abdomen soft, non-tender, nondistended. GENITOURINARY: Without palpable bladder distension. MUSCULOSKELETAL: Extremities without clubbing, cyanosis, or edema. No obvious deformities. LYMPHATICS: No palpable cervical or supraclavicular adenopathy. NEUROLOGICAL: Alert to person and place Follows simple commands. Remains weak. I PSYCHIATRIC: No apparent hallucinations or other psychotic thought process. . (Doreen Prado) Diagnostic Tests Laboratory Laboratory Tests Test 12/04/16 12/05/16 12/06/16 04:14 04:22 06:20 White Blood Count 6.0 TH/MM3 (4.0-11.0) Red Blood Count 3.58 MIL/MM3 (4.00-5.30) Hemoglobin 9.8 GM/DL (11.6-15.3) Hematocrit 30.3 % (35.0-46.0) Mean Corpuscular Volume 84.6 FL (80.0-100.0) Mean Corpuscular Hemoglobin 27.3 PG (27.0-34.0) Mean Corpuscular Hemoglobin 32.3 % Concent (32.0-36.0) Red Cell Distribution Width 20.9 % (11.6-17.2) Platelet Count 156 TH/MM3 (150-450) Mean Platelet Volume 8.7 FL (7.0-11.0) Neutrophils (%) (Auto) 82.4 % (16.0-70.0) Lymphocytes (%) (Auto) 8.0 % (9.0-44.0) Monocytes (%) (Auto) 8.1 % (0.0-8.0) Eosinophils (%) (Auto) 1.1 % (0.0-4.0) Basophils (%) (Auto) 0.4 % (0.0-2.0) Neutrophils # (Auto) 4.9 TH/MM3 (1.8-7.7) Lymphocytes # (Auto) 0.5 TH/MM3 (1.0-4.8) Monocytes # (Auto) 0.5 TH/MM3 (0-0.9) Eosinophils # (Auto) 0.1 TH/MM3 (0-0.4) Basophils # (Auto) 0.0 TH/MM3 (0-0.2) CBC Comment DIFF FINAL Differential Comment Sodium Level 141 MEQ/L 143 MEQ/L 141 MEQ/L (136-145) (136-145) (136-145) Potassium Level 4.1 MEQ/L 3.9 MEQ/L 3.9 MEQ/L (3.5-5.1) (3.5-5.1) (3.5-5.1) Chloride Level 104 MEQ/L 106 MEQ/L 106 MEQ/L (98-107) (98-107) (98-107) Carbon Dioxide Level 27.1 MEQ/L 27.1 MEQ/L 26.2 MEQ/L (21.0-32.0) (21.0-32.0) (21.0-32.0) Anion Gap 10 MEQ/L (5-15) 10 MEQ/L (5-15) 9 MEQ/L (5-15) Blood Urea Nitrogen 83 MG/DL (7-18) 73 MG/DL (7-18) 65 MG/DL (7-18) Creatinine 2.92 MG/DL 2.70 MG/DL 2.37 MG/DL (0.50-1.00) (0.50-1.00) (0.50-1.00) Estimat Glomerular Filtration 16 ML/MIN (>89) 17 ML/MIN (>89) 20 ML/MIN (>89) Rate Random Glucose 93 MG/DL 111 MG/DL 90 MG/DL (74-106) (74-106) (74-106) Calcium Level 6.9 MG/DL 7.0 MG/DL 7.2 MG/DL (8.5-10.1) (8.5-10.1) (8.5-10.1) Protein Corrected Calcium 7.9 MG/DL 8.2 MG/DL 8.3 MG/DL (8.5-10.1) (8.5-10.1) (8.5-10.1) Phosphorus Level 3.2 MG/DL (2.5-4.9) Magnesium Level 1.7 MG/DL 1.7 MG/DL (1.5-2.5) (1.5-2.5) Total Bilirubin 0.3 MG/DL (0.2-1.0) Aspartate Amino Transf 48 U/L (15-37) (AST/SGOT) Alanine Aminotransferase 34 U/L (10-53) (ALT/SGPT) Alkaline Phosphatase 66 U/L (45-117) Total Protein 5.1 GM/DL 4.9 GM/DL 5.1 GM/DL (6.4-8.2) (6.4-8.2) (6.4-8.2) Albumin 1.6 GM/DL (3.4-5.0) Free Thyroxine 0.63 NG/DL (0.76-1.46) Free Triiodothyronine (T3) 0.63 PG/ML pg/dL (2.18-3.98) Thyroid Stimulating Hormone 35.600 uIU/ML 3rd Gen (0.358-3.740) Phenobarbital Level 32.7 MCG/ML (15.0-40.0) . (Doreen Prado) Result Diagram: 12/04/16 0414 12/06/16 0620 Imaging Last 72 hours Impressions Chest X-Ray 12/05/16 0000 Signed Impressions: Service Date/Time: Monday, December 05, 2016 09:43 - CONCLUSION: Bilateral lower lobe consolidations with pleural effusions, pneumonia versus atelectasis. Edmund Oconnell MD . Procedures 11/27/16: Cardioversion for SVT . (Doreen Prado) Assessment and Plan Disease Oriented Problem List: (1) Sinus tachycardia (2) Rhabdomyolysis (3) ALEXEY (acute kidney injury) (4) Melena (5) Hyperlipidemia (6) Consolidation lung (7) Encephalopathy (8) Seizure disorder (9) CAD (coronary artery disease) (10) Confusion (11) Dehydration, severe (12) Rhabdomyolysis (13) Hypothermia (14) Uremic encephalopathy Symptom Scale: (1) Pain Comment: Pain with extension left lower extremity. Other possible causes of pain may include invasive lines, recent fall, infection, bedbound status, immobility, confusion, degenerative disc disease. etc. (2) Dyspnea (3) Anxiety Comment: . 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 She had one brother (Lei) and one sister( Nidhi), her brother last year. Her sister lives in [place], currently ill with CHF. As a young adult, the patient and her family piano mover to [place]. She was for many years to Jorge A who approximately 8-9 years ago. They never had children. The patient worked in a [employer] and the local [employer]. Spiritual: [employer] patience Legal: Patient's sister (Nidhi Jiménez) is designated as the primary HCS and her niece (Carmen Betancoutr) is the alternate HCS. A notarized document was completed 11/30/16 from the patient's sister relinquishing her rights as the HCS and POA. Ethical issues impacting care: No known ethical issues impacting care at this time. Important Contacts Carmen Bararmandojoann, niece/nephew: [phone] Estrada Soto, friend: [phone] . Prognosis Patient is a 71 year old female patient recently admitted with rhabdomyolysis, acute kidney injury, encephalopathy. PMH includes hypothyroidism, h/o seizures in childhood, CAD s/p triple bypass, breast Ca in 2010, degenerative joint disease, hyperlipidemia, HTN, restless leg syndrome, and arrhythmias. Patient was living independently prior to hospitalization. She is now weak, bed bound - refusing further aggressive treatment and/or diagnostic testing. . Code Status: No Code Plan * NO CODE * Decision-making: Patient's sister (Nidhi Jiménez) is designated as the primary HCS and her niece (Carmen Betancourt) is the alternate HCS. A notarized document was completed 11/30/16 from the patient's sister relinquishing her rights as the HCS and POA. * Goals: Patient being discharged today to [facility] for short-term rehabilitation. * Family would like to move the patient to [place] when she is strong enough to be closer to family. If the patient fails rehabilitation, patient and family would consider transitioning to comfort focus goals at that time. * Hospice was declined but may continue to follow-up with family/patient periodically. * Living Will completed 04/13/16. Previously faxed to HIM to be scanned into the patient EMR and copies placed in paper chart. * Symptom management-pain: Pain with extension left lower extremity. Other possible causes of pain may include invasive lines, recent fall, infection, bedbound status, immobility, confusion, degenerative disc disease. etc. . (Doreen Prado) Attestation To help prompt me to consider important information that might be impacting today's encounter and assessment, information from prior notes written by myself or my colleagues may have been "brought forward" into today's note. My signature on this note, however, is an attestation that I personally performed the exam, history, and/or decision-making noted today, and, unless otherwise indicated, the interactions with patient, family, and staff as well as the review of records all occurred today. I also attest that the listed assessment and stated plan reflect my best clinical judgment today based on the combination of historical information, prior notes, and today's exam/ interactions. When time spent is documented, it refers only to time spent today by the signer, or if indicated, combined time spent today by collaborating physician/nurse practitioner. . (Doreen Prado) Collaborating MD Comments Chart reviewed. Case discussed with palliative care OPERATIONS WELDER. Above OPERATIONS WELDER note reviewed and I concur. . (Boston Mann MD) Doreen Prado Dec 06, 2016 17:16 Boston Mann MD Jan 09, 2017 07:34
== END 2016-12-06 13:04 | DRG 871 ==
LOC: NEPC 16:18 → NEDA 18:24 → NEDH 23:08 → HCVR 11-27 10:10 → HCIS 11-30 16:19
PROVIDERS: ADMIT Hospitalist; ATTEND Hospitalist
PROC: 5A2204Z Restoration of Cardiac Rhythm, Single (ICD-10-PCS; principal; 2016-11-27)
PROC: 30233N1 Transfusion of Nonautologous Red Blood Cells into Peripheral Vein, Percutaneous Approach (ICD-10-PCS; 2016-12-02)
DX: A41.9 Sepsis, unspecified organism (principal); J69.0 Pneumonitis due to inhalation of food and vomit; N17.9 Acute kidney failure, unspecified; E87.0 Hyperosmolality and hypernatremia; E87.2 Acidosis; T68.XXXA Hypothermia, initial encounter; I47.1 Supraventricular tachycardia; I42.9 Cardiomyopathy, unspecified; I48.91 Unspecified atrial fibrillation; E86.0 Dehydration; I10 Essential (primary) hypertension; J98.11 Atelectasis; K92.1 Melena; T79.6XXA Traumatic ischemia of muscle, initial encounter; E83.42 Hypomagnesemia; E83.51 Hypocalcemia; G40.909 Epilepsy, unspecified, not intractable, without status epilepticus; E78.5 Hyperlipidemia, unspecified; I25.10 Atherosclerotic heart disease of native coronary artery without angina pectoris; Z95.1 Presence of aortocoronary bypass graft; R74.0 Nonspecific elevation of levels of transaminase and lactic acid dehydrogenase [LDH]; R19.7 Diarrhea, unspecified; E03.9 Hypothyroidism, unspecified; Z85.3 Personal history of malignant neoplasm of breast; E78.00 Pure hypercholesterolemia, unspecified; S30.0XXA Contusion of lower back and pelvis, initial encounter; X58.XXXA Exposure to other specified factors, initial encounter; M50.30 Other cervical disc degeneration, unspecified cervical region; Z79.82 Long term (current) use of aspirin; L89.611 Pressure ulcer of right heel, stage 1; L89.891 Pressure ulcer of other site, stage 1; D64.9 Anemia, unspecified; R06.89 Other abnormalities of breathing; S90.02XA Contusion of left ankle, initial encounter; S90.31XA Contusion of right foot, initial encounter; S31.114A Laceration without foreign body of abdominal wall, left lower quadrant without penetration into peritoneal cavity, initial encounter; S31.821A Laceration without foreign body of left buttock, initial encounter; M40.209 Unspecified kyphosis, site unspecified; G25.81 Restless legs syndrome; R29.6 Repeated falls; R41.0 Disorientation, unspecified; E07.81 Sick-euthyroid syndrome; H92.02 Otalgia, left ear; Z78.1 Physical restraint status; Z66 Do not resuscitate; Z87.891 Personal history of nicotine dependence
CPT/HCPCS: 36430; 36600; 51702; 70450; 70551; 71010; 71250; 72125; 72170; 76775; 76937; 80048; 80053; 80061; 80069; 80076; 80184; 81001; 82140; 82272; 82533; 82550; 82552; 82728; 82805; 83540; 83550; 83605; 83735; 83880; 84100; 84155; 84436; 84439; 84443; 84481; 84484; 85014; 85018; 85025; 85027; 85610; 85730; 86160; 86850; 86900; 86901; 86920; 87040; 87086; 93005; 93306; 94150; 94640; 94664; 95819; 96361; 96374; 99292; C9113; J0153; J0610; J0696; J1953; J1956; J2560; J2920; J3010; J3475; J3480; J7030; J7050; J7070; J7120; J7512; L0150; L0172; P9016